=== PATIENT | female | born 1970 | race Two or more races ===

== ENCOUNTER 2020-08-27 13:29 | Outpatient (REF) | payer OTHER, SELFPAY ==
--- NOTE | ~2020-08-27 | XR_ITS ---
EXAMINATION: XR SHOULDER, RIGHT CLINICAL INFORMATION: Pain in right shoulder COMPARISON: None TECHNIQUE: AP external rotation, Grashey, scapular Y, and axillary views of the right shoulder. FINDINGS: There is mild acromioclavicular osteoarthritis. Glenohumeral joint is well preserved. No fracture. Alignment is anatomic. There is a calcification adjacent the greater tuberosity on the external rotation view which may reflect calcific tendinitis.. XR/XR shoulder RT min 2V IMPRESSION: Possible focus of calcific tendinitis of the rotator cuff adjacent the greater tuberosity of the humerus on the AP external rotation view. Mild right acromioclavicular joint arthrosis
--- NOTE | ~2020-08-27 | XR_ITS ---
EXAMINATION: XR SHOULDER, LEFT CLINICAL INFORMATION: Left shoulder pain COMPARISON: Radiographs left shoulder 05/08/2013 TECHNIQUE: The left shoulder is imaged in 6 views. FINDINGS: There is no fracture, dislocation, destructive process. The acromioclavicular alignment is normal. There is no arthropathy. No visible rotator cuff calcifications. Small plate and screws are seen overlying lower cervical spine consistent with prior anterior cervical fusion. XR/XR shoulder LT min 2V IMPRESSION: Unremarkable left shoulder.
== END 2020-08-27 13:30 | disposition home or self-care (01) ==
LOC: HO.XRAY 13:29
PROVIDERS: PCP Internal Medicine; Visit Provider Internal Medicine
DX: M25.511 Pain in right shoulder (principal); M25.512 Pain in left shoulder
CPT/HCPCS: 73030

== ENCOUNTER 2020-09-08 14:21 | Emergency (ER) | payer OTHER, SELFPAY ==
[2020-09-08 14:33] VITALS: BP 137/84; PULSE 66; RESP 18; TEMP 36.3; O2SAT 100; BMI 26.4
== END 2020-09-08 19:20 | disposition left against medical advice (07) ==
PROVIDERS: Emergency Provider Emergency Medicine; PCP Internal Medicine
DX: R21 Rash and other nonspecific skin eruption (principal); Z86.16 Personal history of COVID-19
CPT/HCPCS: 99281; 99282

== ENCOUNTER → 2020-09-22 11:53 | Outpatient (BNVA) | payer OTHER, SELFPAY | PROVIDERS: Visit Provider Physician Assistant | DX: Z13.89 Encounter for screening for other disorder (principal) | CPT/HCPCS: Q3014 ==

== ENCOUNTER 2020-10-13 10:38 | Day surgery (SDC) | payer OTHER, SELFPAY ==
--- NOTE | 2020-10-09 14:40 | P.CONAN_ITS ---
Documented by User: Roxi Trujillo 10/09/20 14:41 HPI - Anesthesia Eval Consult details Narrative: 89yo F for Colonoscopy PMFSH Active Problems Active Problems: All Active Problems (Updated 09/22/20 @ 15:25 by Saundra Lim PA-C) Encounter for screening colonoscopy (Acute) Past Medical History Medical History Anxiety COVID-19 Depression Social History Social History Household Members: None Alcohol intake: never Smoking Status: Never smoker Use of substances other than those prescribed or required for medical reasons: No Advance Directives: No Advance Directives Information Provided: Yes Current occupational status: disabled Notable Limiteds Allergies Allergy/AdvReac Type Severity Reaction Status Date / Time No Known Allergies Allergy Unverified 03/20/20 18:37 [No Known Allergies*] Home Medications Medication Instructions Recorded Confirmed Last Taken Type citalopram 20 mg tablet 20 mg PO DAILY 09/22/20 09/22/20 Unknown History diclofenac sodium 75 mg 75 mg PO BID 09/22/20 09/22/20 Unknown History tablet,delayed release gabapentin 400 mg capsule 400 mg PO DAILY 09/22/20 09/22/20 Unknown History lorazepam 1 mg tablet 1 mg PO DAILY PRN 09/22/20 09/22/20 Unknown History methylprednisolone 4 mg tablet 4 mg PO DAILY 09/22/20 09/22/20 Unknown History mirtazapine 30 mg tablet 30 mg PO DAILY 09/22/20 09/22/20 Unknown History trazodone 50 mg tablet 50 mg PO BEDTIME PRN 09/22/20 09/22/20 Unknown History Exam Exam Date and Time: October 09, 2020 144 Assessment and Plan Assessment Anesthesia Assessment: Chart Reviewed Documented by User: Paola Zafar 10/13/20 12:03 PMFSH Past Medical History Medical History Anxiety COVID-19 Depression Social History Social History Household Members: None Alcohol intake: never Smoking Status: Never smoker Use of substances other than those prescribed or required for medical reasons: No Advance Directives: No Advance Directives Information Provided: Yes Current occupational status: disabled Meds Allergies Allergy/AdvReac Type Severity Reaction Status Date / Time No Known Allergies Allergy Unverified 03/20/20 18:37 [No Known Allergies*] Home Medications Medication Instructions Recorded Confirmed Last Taken Type citalopram 20 mg tablet 20 mg PO DAILY 09/22/20 09/22/20 Unknown History diclofenac sodium 75 mg 75 mg PO BID 09/22/20 09/22/20 Unknown History tablet,delayed release gabapentin 400 mg capsule 400 mg PO DAILY 09/22/20 09/22/20 Unknown History lorazepam 1 mg tablet 1 mg PO DAILY PRN 09/22/20 09/22/20 Unknown History methylprednisolone 4 mg tablet 4 mg PO DAILY 09/22/20 09/22/20 Unknown History mirtazapine 30 mg tablet 30 mg PO DAILY 09/22/20 09/22/20 Unknown History trazodone 50 mg tablet 50 mg PO BEDTIME PRN 09/22/20 09/22/20 Unknown History Exam Airway Mallampati Class: II TM Dist: >3cm Neck ROM: Full Loose/Missing/Broken Teeth: No Heart: RRR Lungs: CTA Assessment and Plan Assessment Anesthesia Assessment: Anesthesia Plan Discussed Final Anesthetic Review NPO: Yes ASA Class: II Final Preanesthetic Review: No Changes in Pt Med Stat, Consent Obtained/Reviewed and Anes Risks/Benef Reviewed Patient Risk: Low Procedure Risk: Low Anesthetic Plan Anesthetic Plan: MAC: Disposition: Standard PACU
[2020-10-13 11:42] VITALS: BMI 26.4
[2020-10-13 11:43] VITALS: BP 109/56; PULSE 60; RESP 16; TEMP 36.7; O2SAT 100
[2020-10-13] MEDS: Lactated Ringers 1,000 ML 100 ML IVCONT (11:48)
--- NOTE | 2020-10-13 11:52 | MHC.SHP ---
Pre-Procedural Eval Section B Chief Complaint: Screening Relevant Family History (Specify if Yes): No Relevant Social History: None Present Medications: see Short Stay Collaborative assessment Medical History: Significant History (Anxiety COVID-19 Depression) History of Previous Operations: No relevant previous surgery Allergies: Allergies Allergy/AdvReac Type Severity Reaction Status Date / Time No Known Allergies Allergy Unverified 03/20/20 18:37 [No Known Allergies*] Review of Systems Sugical H&P ROS: Negative: Constitution, Cardiovascular, Respiratory, Neurological, Psychiatric, Hem-Onc, Allergic/Immunologic, Gastrointestinal, Genitourinary, Musculoskeletal, Integumentary, Endocrine and Eyes/Ears/Nose/Throat Exam Surgical H&P Exam: Normal: HEENT, Normal: Heart, Normal: Lungs, Normal: Extremities, Normal: Abdomen, Normal: Skin and Normal: Neurological Plan Diagnosis/Plan: Unchanged I have reviewed the history and physical and performed a pertinent physical examination on my patient. No changes have occurred unless specified.
--- NOTE | 2020-10-13 12:29 | PM.OP ---
Brief Operative Note Date of Service: 10/13/20 Pre-op diagnosis: colon screening Post-op diagnosis: same Procedure: see op note Surgeon: John Webster MD Anesthesia: MAC Estimated blood loss (mL): 0 Condition: stable Disposition: PACU
--- NOTE | 2020-10-13 12:30 | W.PM.OPN ---
Operative Note Operative Note Date of Service: 10/13/20 Narrative: Operative Information Procedure Description: Colonoscopy COLONOSCOPY Instrument: Olympus variable stiffness pediatric scope 190L Colonoscopy Monitoring: Vital signs and clinical assessment, continuous EKG monitoring, Pulse oximetry, Carbon Dioxide monitoring and blood pressure monitoring were done throughout the procedure. Colon withdrawal time was 10 minutes. Procedure: The patient was placed in the left lateral decubitis position and pre-procedure medications were administered. After a digital rectal examination of the ano-rectum, the video colonoscope was inserted into the rectum and advanced through the colon to the cecum/TI. The colonoscope was slowly withdrawn in a retrograde panoramic fashion and the colon mucosa was carefully examined including a retroflexed view of the rectum. Findings and interventions are described below. Procedure Difficulty: moderate Findings: Terminal Ileum-normal Cecum:normal Ascending Colon: normal Transverse Colon -normal Descending Colon:normal Sigmoid Colon: normal Rectum: Retroflexion with small internal hemorrhoids, grade I Anorectum - normal Colon preparation: [place] Bowel Preparation Scale Right colon; 2 Transverse colon: 2 Left colon; 2 (0 = Unprepared colon segment with mucosa not seen due to solid stool that cannot be cleared. 1 = Portion of mucosa of the colon segment seen, but other areas of the colon segment not well seen due to staining, residual stool and/or opaque liquid. 2 = Minor amount of residual staining, small fragments of stool and/or opaque liquid, but mucosa of colon segment seen well. 3 = Entire mucosa of colon segment seen well with no residual staining, small fragments of stool or opaque liquid) Impression and Post Procedure Diagnosis: internal hemorrhoids Plan: High fiber diet leaflet Avoid straining at stool, epsom salts and sitz bath, anusol supps or cream prn Repeat Colonoscopy in 10 years or earlier if clinically indicated Above findings were reviewed with the patient and relevant handouts were provided if indicated.
[2020-10-13 12:34] VITALS: BP 85/45; PULSE 73; RESP 16; TEMP 36.2; O2SAT 97
[2020-10-13 12:46] VITALS: BP 100/57; PULSE 56; RESP 18; TEMP 36.1; O2SAT 99
== END 2020-10-13 13:20 | disposition home or self-care (01) ==
PROVIDERS: PCP Internal Medicine; Visit Provider Internal Medicine Gastroenterology
PROC: 0DJD8ZZ Inspection of Lower Intestinal Tract, Via Natural or Artificial Opening Endoscopic (ICD-10-PCS; CPT 45378; principal; 2020-10-13 12:00)
DX: Z12.11 Encounter for screening for malignant neoplasm of colon (principal); K64.0 First degree hemorrhoids
CPT/HCPCS: G0121

== ENCOUNTER → 2020-10-29 13:51 | Outpatient (BNVA) | payer OTHER, SELFPAY | PROVIDERS: PCP Internal Medicine; Visit Provider Orthopaedic Surgery | DX: M75.42 Impingement syndrome of left shoulder (principal) | CPT/HCPCS: 20610; 99202; J1040 ==

== ENCOUNTER 2020-10-30 14:20 | Outpatient (REF) | payer OTHER, SELFPAY ==
--- NOTE | ~2020-10-30 | MM_ITS ---
EXAMINATION: MM SCREENING DIGITAL BREAST TOMOSYNTHESIS, BILATERAL CLINICAL INFORMATION: Screening. Asymptomatic. Family history breast cancer, mother age 50. Excision dermal lesion inferior medial right breast 2019. The lifetime risk of breast cancer based on the Tyrer-Cuzick Model is 15%. COMPARISON: Mammography: 08/21/2019, 10/27/2018, 08/14/2018, 03/19/2016; targeted right breast ultrasound 10/27/2018 TECHNIQUE: Digital breast tomosynthesis is performed in both the craniocaudal and mediolateral oblique views along with computer-aided detection (CAD). Synthesized 2D images are generated from the tomosynthesis. Scar markers are positioned right breast at site of previous excision dermal lesion. FINDINGS: There are scattered areas of fibroglandular density (ACR BI-RADS breast composition Category b). There are no significant masses, abnormal calcifications, or other abnormalities. Parenchymal pattern is similar to prior studies. Dermal lesion is no longer present consistent with the history excision. Axillary nodes are stable. Skin contours are smooth. No significant changes. MM/MM tomosynthesis screening BI IMPRESSION: No mammographic evidence of malignancy. ASSESSMENT: BI-RADS 1: Negative RECOMMENDATION: Routine annual mammography screening. This patient's information was entered into a reminder system with a target due date for their next mammogram.
== END 2020-10-30 14:21 | disposition home or self-care (01) ==
LOC: HO.MAMMO 14:20
PROVIDERS: PCP Internal Medicine; Visit Provider Internal Medicine
DX: Z12.31 Encounter for screening mammogram for malignant neoplasm of breast (principal)
CPT/HCPCS: 77063; 77067

== ENCOUNTER → 2020-11-12 11:27 | Outpatient (BNVA) | payer OTHER, SELFPAY | PROVIDERS: Referring Provider Internal Medicine; Visit Provider Physician Assistant | DX: K64.9 Unspecified hemorrhoids (principal); K59.00 Constipation, unspecified | CPT/HCPCS: 99212 ==

== ENCOUNTER → 2020-11-20 10:42 | Outpatient (BNVA) | payer OTHER, SELFPAY | PROVIDERS: PCP Internal Medicine; Visit Provider Urology | DX: N39.3 Stress incontinence (female) (male) (principal) | CPT/HCPCS: 51798; 99212 ==

== ENCOUNTER 2020-12-03 12:05 | Outpatient (REF) | payer OTHER, SELFPAY ==
[2020-12-03 13:00] LABS: COVID-19 Test Negative (Negative); IDNOW Serial# 55D5AD1C
== END 2020-12-03 12:06 | disposition home or self-care (01) ==
LOC: HO.LAB 12:05
PROVIDERS: Visit Provider Internal Medicine
DX: Z20.822 Contact with and (suspected) exposure to COVID-19 (principal)
CPT/HCPCS: 36415; 87635; C9803

== ENCOUNTER 2020-12-04 12:38 | Outpatient (REF) | payer OTHER, SELFPAY ==
--- NOTE | 2020-12-04 | PFT_ITS ---
FLOWS: FEV1 of 81% of predicted at 2.03 L. FVC 72% of predicted at 2.22 L. FEV1 to FVC ratio of 0.91. No bronchodilator response. LUNG VOLUMES: Total lung capacity 83% of predicted at 3.84 L. Residual volume 94% of predicted at 1.56 L. Slow vital capacity 77% of predicted at 2.28 L. Expiratory reserve volume 55% of predicted at 0.50 L. Diffusion capacity is normal. IMPRESSION: No obstructive or restrictive ventilatory defect. No bronchodilator response. Normal pulmonary function test. Toñito Robbins MD AP/MODL / [id number]
== END 2020-12-04 12:39 | disposition home or self-care (01) ==
LOC: HO.RESP 12:38
PROVIDERS: PCP Internal Medicine; Visit Provider Internal Medicine
DX: R05 Cough (principal); R06.2 Wheezing
CPT/HCPCS: 94060; 94727; 94729

== ENCOUNTER 2021-03-18 16:20 | Emergency (ER) | payer OTHER, SELFPAY ==
--- NOTE | ~2021-03-18 | XR_ITS ---
EXAMINATION: XR CHEST CLINICAL INFORMATION: Chest pain COMPARISON: None TECHNIQUE: Frontal view of the chest was obtained. FINDINGS: No significant abnormality is noted involving the heart, lungs, mediastinum, bony thorax or soft tissues. XR/XR chest 1V IMPRESSION: Unremarkable examination.
--- NOTE | 2021-03-18 16:24 | ECG_ITS ---
Test Reason : CHEST PAIN Blood Pressure : / mmHG Vent. Rate : 069 BPM Atrial Rate : 069 BPM P-R Int : 150 ms QRS Dur : 090 ms QT Int : 396 ms P-R-T Axes : 050 012 018 degrees QTc Int : 424 ms Normal sinus rhythm Minimal voltage criteria for LVH, may be normal variant Borderline ECG When compared with ECG of 08-MAY-2013 16:33, No significant change was found Referred By: Generic ED Physician Electronically Signed By:CHRIS MCKEON
[2021-03-18 16:32] VITALS: BP 159/70; PULSE 75; RESP 18; TEMP 36.6; O2SAT 100; BMI 27.3
[2021-03-18 17:07] LABS: MANUAL DIFF FLAG NO
[2021-03-18 17:12] LABS: Basophils Absolute Auto 0.1 X10*3/uL (0.0-0.2); Basophils Percent Auto 0.7 % (0-2); Eosinophils Absolute Auto 0.5 X10*3/uL (0.0-0.4); Eosinophils Percent Auto 5.7 % (0-4); Hematocrit 35.5 % (37-47); Hemoglobin 12.8 g/dl (12.0-16.0); Imm Gran Abs Auto 0.02 X10*3/uL (0.00-0.03); Imm Gran Pct Auto 0.2 % (0.0-0.4); Lymphocytes Absolute Auto 1.7 X10*3/uL (1.2-4.9); Lymphocytes Percent Auto 18.5 % (20-40); Mean Corpuscular HGB Conc 36.1 g/dl (31.0-35.0); Mean Corpuscular Hemoglobin 29.3 pg (27.0-33.0); Mean Corpuscular Volume 81.2 fL (80-98); Monocytes Absolute Auto 0.5 X10*3/uL (0.1-1.2); Monocytes Percent Auto 5.4 % (2-11); Neutrophils Absolute Auto 6.4 X10*3/uL (2.0-8.3); Neutrophils Percent Auto 69.5 % (45-73); Platelet Count 265 X10*3/uL (160-400); Red Blood Count 4.37 X10*6/uL (4.20-5.50); Red Cell Distribution Width 13.4 % (11.0-16.0); White Blood Count 9.2 X10*3/uL (4.8-10.8)
[2021-03-18 17:28] LABS: Anion Gap 12 (12-20); Blood Urea Nitrogen 14 mg/dL (9-16); Calcium 9.9 mg/dL (8.4-10.2); Carbon Dioxide 26 mmol/L (22-29); Chloride 103 mmol/L (96-108); Creatinine Clr Calc Pharmacy 67.2; Estimated Glomerular Filt Rate > 60; Glucose Random 106 mg/dL (60-115); Potassium 3.8 mmol/L (3.3-5.1); Sodium 137 mmol/L (135-145)
[2021-03-18 17:30] LABS: Troponin-I High Sensitivity 11.4 ng/L (<3.5-17.0)
[2021-03-18 19:37] VITALS: BP 150/83; PULSE 73; RESP 16
--- NOTE | 2021-03-18 19:37 | PC.NURSE ---
at bedside for primary eval.
--- NOTE | 2021-03-18 19:43 | ED_ITS ---
HPI - Chest Pain General Chief Complaint: Chest Pain Stated Complaint: cHEST PAIN Time Seen by Provider: 03/18/21 19:43 History of Present Illness HPI narrative: Patient is a 50-year-old female presents today with having chest pain that is been ongoing for the last 4 days. It is burning in nature it goes from her throat down to her xiphoid process. Patient claims this pain is worse at night. Improved during the day not affected by movement. She has no history of diabetes, hypertension, mi, family history of [place]. No history of recreational drug use. No history of smoking. Patient pain has been fairly consistent. Have not tried any medication for this. Patient from home. Related Data Home Medications Medication Instructions Recorded Confirmed citalopram 20 mg tablet 20 mg PO DAILY 09/22/20 11/12/20 diclofenac sodium 75 mg 75 mg PO BID 09/22/20 11/12/20 tablet,delayed release gabapentin 400 mg capsule 400 mg PO DAILY 09/22/20 11/12/20 lorazepam 1 mg tablet 1 mg PO DAILY PRN 09/22/20 11/12/20 mirtazapine 30 mg tablet 30 mg PO DAILY 09/22/20 11/12/20 trazodone 50 mg tablet 50 mg PO BEDTIME PRN 09/22/20 11/12/20 cholecalciferol (vitamin D3) 25 25 mcg PO DAILY 11/12/20 11/12/20 mcg (1,000 unit) capsule hydrocortisone 2.5 % topical cream appl TOPICAL BID 11/12/20 11/12/20 levocetirizine 5 mg tablet 5 mg PO BEDTIME 11/12/20 11/12/20 magnesium 200 mg tablet 200 mg PO DAILY 11/12/20 11/12/20 oxymetazoline 0.05 % nasal spray 2 spray INTRANASAL TID 11/12/20 11/12/20 temazepam 30 mg capsule 30 mg PO BEDTIME PRN 11/12/20 11/12/20 Previous Rx's Medication Instructions Recorded hydrocortisone 2.5 % topical cream 1 appl NE BID PRN #30 g 11/12/20 with perineal applicator (Proctozone-HC) pantoprazole 20 mg tablet,delayed 20 mg PO DAILY #20 tab 03/18/21 release (Protonix) Allergies Allergy/AdvReac Type Severity Reaction Status Date / Time No Known Allergies Allergy Verified 03/18/21 16:31 [No Known Allergies*] Review of Systems Review of Systems: No fever no chills no cough no congestion or upper respiratory symptoms. No diaphoresis. All system reviewed otherwise negative Yes all other systems are reviewed and are negative [facility] Past Medical History Medical History (Updated 03/18/21 @ 19:50 by Yanci Resendez MD) Anxiety Constipated COVID-19 Depression Hemorrhoids CADENCE (stress urinary incontinence, female) Surgical History H/O cervical spine surgery History of bladder surgery Social History Social History Household Members: None Alcohol intake: never Advance Directives: No Advance Directives Information Provided: Yes Patient : No Current occupational status: disabled Physical Exam Vital Signs: Vital Signs: Last Vital Signs Temp 97.8 F 03/18/21 16:32 Pulse 73 03/18/21 19:37 Resp 16 03/18/21 19:37 BP 150/83 H 03/18/21 19:37 Pulse Ox 100 03/18/21 16:32 Body Mass Index 27.3 Appearance: Alert. Oriented X3. No acute distress. Eyes: Pupils equal, round and reactive to light. ENT: Pharynx normal. Neck: Normal inspection. Neck supple. No lymph nodes noted. No crepitus CVS: Normal heart rate and rhythm. Pulses normal. Normal S1 and S2 Respiratory: No respiratory distress. Breath sounds normal. No Wheezing. No rales Abdomen: Soft and nontender. No rigidity. No distention. good BS x4 Skin: Skin warm and dry. Normal skin color. Normal skin turgor. Extremities: No lower extremity edema. Neurovascular intact to all extremities. No Lacerations. No Rash Neuro: Oriented X 3. No motor deficit. No sensory deficit. Moving all extermities. No slurred speech MDM - Chest Pain MDM Narrative Medical decision making narrative: Patient's EKG showed a sinus pattern heart rate is 70 NE QRS QT within normal limits is no acute ST segment elevation noted. Patient well appearing no distress. Pain is mid chest not affected by motion. It is burning in nature question reflux. Patient's 1st set of troponin is negative patient has constant pain for last 4 days this is unlikely secondary ACS. Patient's EKG is unchanged. Patient's history not consistent. Heart score is less than 3. Will have patient follow-up on an outpatient basis. We will give Maalox. Will have patient get PPI. Close follow-up with Cardiology on an outpatient basis. In stable condition. Medical Records Data Attestation: I reviewed the patient's medical records. Lab Data Attestation: I reviewed the patient's lab results. Result diagrams: 03/18/21 16:51 03/18/21 16:51 Labs: Lab Results 03/18/21 03/18/21 03/18/21 Range/Units 16:51 16:51 16:51 WBC 9.2 (4.8-10.8) X10*3/uL RBC 4.37 (4.20-5.50) X10*6/uL Hgb 12.8 (12.0-16.0) g/dl Hct 35.5 L (37-47) % MCV 81.2 (80-98) fL MCH 29.3 (27.0-33.0) pg MCHC 36.1 H (31.0-35.0) g/dl RDW 13.4 (11.0-16.0) % Plt Count 265 (160-400) X10*3/uL MPV 11.0 (9.4-12.3) fL Immature Gran % (Auto) 0.2 (0.0-0.4) % Neut % (Auto) 69.5 (45-73) % Lymph % (Auto) 18.5 L (20-40) % [place] % (Auto) 5.4 (2-11) % Eos % (Auto) 5.7 H (0-4) % Baso % (Auto) 0.7 (0-2) % Lymph # (Auto) 1.7 (1.2-4.9) X10*3/uL [place] # (Auto) 0.5 (0.1-1.2) X10*3/uL Eos # (Auto) 0.5 H (0.0-0.4) X10*3/uL Baso # (Auto) 0.1 (0.0-0.2) X10*3/uL Abs Immat Gran (auto) 0.02 (0.00-0.03) X10*3/uL Absolute Neuts (auto) 6.4 (2.0-8.3) X10*3/uL Absolute Nucleated RBC 0.000 (0.0-0.012) X10*3/uL Nucleated RBC % (auto) 0.0 (0.0-0.2) /100WBC Sodium 137 (135-145) mmol/L Potassium 3.8 (3.3-5.1) mmol/L Chloride 103 (96-108) mmol/L Carbon Dioxide 26 (22-29) mmol/L Anion Gap 12 (12-20) BUN 14 (9-16) mg/dL Creatinine 0.87 (0.5-1.4) mg/dL Estim Creat Clear Calc 67.2 Estimated GFR > 60 Random Glucose 106 (60-115) mg/dL Calcium 9.9 (8.4-10.2) mg/dL Troponin I High Sens 11.4 (<3.5-17.0) ng/L Discharge Plan Discharge Clinical Impression: Chest pain Patient Disposition: Home, Self-Care Instructions: Chest Pain (ED) Prescriptions: New pantoprazole [Protonix] 20 mg tablet,delayed release (DR/EC) 20 mg PO DAILY Qty: 20 RF: 0 No Action trazodone 50 mg tablet 50 mg PO BEDTIME PRNRF: 0 gabapentin 400 mg capsule 400 mg PO DAILY RF: 0 citalopram 20 mg tablet 20 mg PO DAILY RF: 0 lorazepam 1 mg tablet 1 mg PO DAILY PRNRF: 0 diclofenac sodium 75 mg tablet,delayed release (DR/EC) 75 mg PO BID RF: 0 mirtazapine 30 mg tablet 30 mg PO DAILY RF: 0 cholecalciferol (vitamin D3) 25 mcg (1,000 unit) capsule 25 mcg PO DAILY RF: 0 temazepam 30 mg capsule 30 mg PO BEDTIME PRNRF: 0 oxymetazoline 0.05 % spray,non-aerosol 2 spray intranasal TID RF: 0 levocetirizine 5 mg tablet 5 mg PO BEDTIME RF: 0 hydrocortisone 2.5 % cream topical BID RF: 0 magnesium 200 mg tablet 200 mg PO DAILY RF: 0 hydrocortisone [Proctozone-HC] 2.5 % cream with perineal applicator 1 appl NE BID PRN (Reason: hemorrhoids) Qty: 30 RF: 3 Referrals: Ragini So MD [Primary Care Provider] - 2 days (Risk of heart attack still exists. Please closely follow-up with your doctor on an outpatient basis.) Print Language: [place]
[2021-03-18] MEDS: Magnesium Hydrox/Alum Hydrox 30 ML ORAL.SUSP PO (19:58)
--- NOTE | 2021-03-18 19:59 | PC.NURSE ---
Medicated per MAR.
== END 2021-03-18 20:03 | disposition home or self-care (01) ==
PROVIDERS: Emergency Provider Emergency Medicine Emergency Medical Services; PCP Internal Medicine
DX: R07.9 Chest pain, unspecified (principal); Z79.899 Other long term (current) drug therapy; Z86.16 Personal history of COVID-19
CPT/HCPCS: 36415; 71045; 80048; 84484; 85025; 93005; 99284

== ENCOUNTER → 2021-03-24 13:25 | Outpatient (BNVA) | payer OTHER, SELFPAY | PROVIDERS: PCP Internal Medicine; Referring Provider Internal Medicine; Visit Provider Physician Assistant | DX: R13.10 Dysphagia, unspecified (principal) | CPT/HCPCS: 99202 ==

== ENCOUNTER 2021-06-16 08:36 | Outpatient (REF) | payer OTHER, SELFPAY ==
--- NOTE | ~2021-06-16 | FL_ITS ---
EXAMINATION: FL BARIUM SWALLOW CLINICAL INFORMATION: Dysphagia COMPARISON: None TECHNIQUE: Barium swallow examination is performed using fluoroscopic evaluation in addition to multiple fluoroscopic spot views. The patient is imaged both upright and prone and using both thick and thin sulfate along with effervescent granules. Fluoroscopy time: 1.5 minutes DAP: 3.987 Gycm2 Images: 45 FINDINGS: Pharynx and cervical esophagus: Examination demonstrates normal motility without stricturing, diverticula, or obstruction. No significant pooling of contrast material in the valleculae or piriform sinuses. No cricopharyngeal abnormalities are noted. There is an ACDF plate and screw fixation construct from C4 through C6, though this did not produce significant mass effect upon the hypopharynx nor the cervical esophagus. No appreciable pharyngeal abnormalities on these images. Thoracic esophagus: Normal esophageal motility was observed during swallowing. There was no evidence of esophageal mass, ulceration, or stricture. No hiatal hernia was noted. There is no evidence of gastroesophageal reflux demonstrated on this exam, neither spontaneous nor with the patient performing a Valsalva maneuver. Barium pill was noted to pass through the esophagus and into the lumen of the stomach without delay. FL/FL barium swallow IMPRESSION: Normal barium swallow study. No significant gastroesophageal reflux was observed. No findings of esophagitis, stricture, or dysmotility
== END 2021-06-16 08:37 | disposition home or self-care (01) ==
LOC: HO.XRAY 08:36
PROVIDERS: Visit Provider Physician Assistant
DX: R13.10 Dysphagia, unspecified (principal)
CPT/HCPCS: 74220

== ENCOUNTER 2021-10-05 13:12 | Outpatient (REF) | payer OTHER, SELFPAY ==
--- NOTE | ~2021-10-05 | XR_ITS ---
EXAMINATION: XR FOOT, RIGHT XR FOOT, LEFT CLINICAL INFORMATION: Bilateral plantar surface foot pain. COMPARISON: Most recent left foot radiographs dated 01/28/2020. TECHNIQUE: AP, oblique, and lateral views of the right and left foot. FINDINGS: Right Foot: No acute fracture or dislocation. No joint space narrowing or marginal osteophytes. No osseous erosion. Small plantar calcaneal spur. Left Foot: No acute fracture or dislocation. No joint space narrowing or marginal osteophytes. No osseous erosion. Small plantar calcaneal spur, unchanged. XR/XR foot RT min 3V IMPRESSION: RIGHT FOOT: Small plantar calcaneal spur. LEFT FOOT: Small plantar calcaneal spur, unchanged.
--- NOTE | ~2021-10-05 | XR_ITS ---
EXAMINATION: XR FOOT, RIGHT XR FOOT, LEFT CLINICAL INFORMATION: Bilateral plantar surface foot pain. COMPARISON: Most recent left foot radiographs dated 01/28/2020. TECHNIQUE: AP, oblique, and lateral views of the right and left foot. FINDINGS: Right Foot: No acute fracture or dislocation. No joint space narrowing or marginal osteophytes. No osseous erosion. Small plantar calcaneal spur. Left Foot: No acute fracture or dislocation. No joint space narrowing or marginal osteophytes. No osseous erosion. Small plantar calcaneal spur, unchanged. XR/XR foot LT min 3V IMPRESSION: RIGHT FOOT: Small plantar calcaneal spur. LEFT FOOT: Small plantar calcaneal spur, unchanged.
== END 2021-10-05 13:13 | disposition home or self-care (01) ==
LOC: HO.XRAY 13:12
PROVIDERS: Absent Provider Internal Medicine; PCP Internal Medicine; Visit Provider Internal Medicine
DX: M72.2 Plantar fascial fibromatosis (principal)
CPT/HCPCS: 73630

== ENCOUNTER 2021-11-02 12:54 | Outpatient (REF) | payer OTHER, SELFPAY ==
--- NOTE | ~2021-11-02 | MM_ITS ---
EXAMINATION: MM SCREENING DIGITAL BREAST TOMOSYNTHESIS, BILATERAL CLINICAL INFORMATION: Screening. Asymptomatic. Family history breast cancer, mother. The lifetime risk of breast cancer based on the Tyrer-Cuzick Model is 16%. COMPARISON: Mammography: 10/30/2020, 08/21/2019, 10/27/2018, 08/14/2018 TECHNIQUE: Digital breast tomosynthesis is performed in both the craniocaudal and mediolateral oblique views along with computer-aided detection (CAD). Synthesized 2D images are generated from the tomosynthesis. FINDINGS: There are scattered areas of fibroglandular density (ACR BI-RADS breast composition Category b). There are no significant masses, abnormal calcifications, or other abnormalities. Parenchymal pattern is similar to prior studies. No significant changes. MM/MM tomosynthesis screening BI IMPRESSION: No mammographic evidence of malignancy. ASSESSMENT: BI-RADS 1: Negative RECOMMENDATION: Routine annual mammography screening. This patient's information was entered into a reminder system with a target due date for their next mammogram.
== END 2021-11-02 12:55 | disposition home or self-care (01) ==
LOC: HO.MAMMO 12:54
PROVIDERS: Visit Provider Internal Medicine
DX: Z12.31 Encounter for screening mammogram for malignant neoplasm of breast (principal)
CPT/HCPCS: 77063; 77067

== ENCOUNTER 2022-09-09 10:18 | Outpatient (REF) | payer OTHER, SELFPAY ==
--- NOTE | ~2022-09-09 | XR_ITS ---
EXAMINATION: XR FOOT, LEFT CLINICAL INFORMATION: Calcaneus spurring. COMPARISON: Radiograph of the left foot 02/04/2022. TECHNIQUE: AP, lateral, and oblique views of the left foot. FINDINGS: No acute fractures or subluxation. No significant joint space narrowing or marginal osteophytes. No erosions or chondrocalcinosis. Small plantar calcaneal spur, unchanged. XR/XR foot LT min 3V IMPRESSION: 1. No acute fractures or subluxation. 2. Small plantar calcaneal spur, unchanged.
== END 2022-09-09 10:19 | disposition home or self-care (01) ==
LOC: HO.XRAY 10:18
PROVIDERS: PCP Internal Medicine; Visit Provider Registered Nurse
DX: M77.32 Calcaneal spur, left foot (principal)
CPT/HCPCS: 73630

== ENCOUNTER 2022-11-08 12:57 | Outpatient (REF) | payer OTHER, SELFPAY ==
--- NOTE | ~2022-11-08 | MM_ITS ---
EXAMINATION: MM SCREENING DIGITAL BREAST TOMOSYNTHESIS, BILATERAL CLINICAL INFORMATION: Screening. Asymptomatic. Family history breast cancer, mother, age 50. The lifetime risk of breast cancer based on the Tyrer-Cuzick Model is 12%. COMPARISON: Mammography: 11/02/2021, 10/30/2020, 08/21/2019 TECHNIQUE: Digital breast tomosynthesis is performed in both the craniocaudal and mediolateral oblique views along with computer-aided detection (CAD). Synthesized 2D images are generated from the tomosynthesis. FINDINGS: There are scattered areas of fibroglandular density (ACR BI-RADS breast composition Category b). There are no significant masses, abnormal calcifications, or other abnormalities. Parenchymal pattern is similar to prior studies. There is no developing density or architectural abnormality. The axilla and skin contours are unremarkable. No significant changes. MM/MM tomosynthesis screening BI IMPRESSION: No mammographic evidence of malignancy. ASSESSMENT: BI-RADS 1: Negative RECOMMENDATION: Routine annual mammography screening. This patient's information was entered into a reminder system with a target due date for their next mammogram.
== END 2022-11-08 12:58 | disposition home or self-care (01) ==
LOC: HO.MAMMO 12:57
PROVIDERS: PCP Internal Medicine; Visit Provider Internal Medicine
DX: Z12.31 Encounter for screening mammogram for malignant neoplasm of breast (principal)
CPT/HCPCS: 77063; 77067

== ENCOUNTER 2022-11-26 15:27 | Outpatient (REF) | payer OTHER, SELFPAY ==
--- NOTE | ~2022-11-26 | XR_ITS ---
EXAMINATION: XR WRIST, LEFT CLINICAL INFORMATION: Pain for one month. No history of injury. COMPARISON: None available. TECHNIQUE: PA, lateral, and oblique views of the left wrist. Images of the left hand also included. FINDINGS: There is periarticular osteopenia. Bone alignment is normal. No fracture or dislocation. Joint spaces are otherwise normal. Soft tissues are normal. XR/XR wrist LT min 3V IMPRESSION: Periarticular osteopenia. Otherwise unremarkable exam.
== END 2022-11-26 15:28 | disposition home or self-care (01) ==
LOC: HO.HHCX 15:27
PROVIDERS: Visit Provider Internal Medicine
DX: M25.532 Pain in left wrist (principal)
CPT/HCPCS: 73110

== ENCOUNTER → 2023-01-07 15:09 | Outpatient (BNVA) | payer OTHER, SELFPAY | PROVIDERS: PCP Internal Medicine; Visit Provider Orthopaedic Surgery | DX: M25.531 Pain in right wrist (principal) | CPT/HCPCS: 99202 ==

== ENCOUNTER 2023-02-01 11:15 | Outpatient (AMB) | payer OTHER, SELFPAY ==
--- NOTE | 2023-02-01 11:25 | A.OFFVIS_ITS ---
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 Patient stated her symptoms started about 6 months ago, she also mentioned she has neuropathy. Patient had previous spinal surgery ( cervical 2010, 2014) and suffers from low back pain due to herniated discs. 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 Complaints include pain over varicosities, swelling of lower extremities, cramping, fatigue, and heaviness of the lower extremities. It has been affecting there daily activities including walking. It is noted more so in right leg. Patient denies any previous venous surgery or injections. Patient denies any history of DVT/ PE. Patient denies any history of phlebitis. Trial of compression includes - [id number] They now present for vascular evaluation regarding their varicose veins. 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 Review of Systems Const Reports as per HPI ENT Reports no additional complaints Card Denies chest pain, Denies chest pain at rest and Denies chest pain with activity Resp Denies chest congestion and Denies cough GI Reports no additional complaints Musc Details: pain over varicosities, aching of lower extremities, swelling, cramping, heaviness and tiredness, itching Denies abnormal gait Skin/Breast Reports pruritus and Denies wounds Neuro Reports no additional complaints and Denies abnormal gait Psych Denies no additional complaints Physical Exam Const General: cooperative, healthy appearing and comfortable Orientation/consciousness: oriented to person, oriented to place and oriented to time Neck Carotids: no bruits Chest Chest palpation & inspection: normal inspection of the chest and normal palpation of entire chest wall Resp Effort & Inspection: normal respiratory effort and able to speak in complete sentences Cardio Rate: regular rate Heart sounds: S1 normal heart sound present and S2 normal heart sound present Peripheral pulses: Peripheral pulses 2+ throughout GI Inspection: Yes normal to inspection Skin Other: +2 edema, large rope-like varicosities greater than 4 mm CEAP Classification C4 - skin color changes Ep - Etiology Primary As - superficial veins P - reflux General skin exam: dry skin Neuro General: oriented to person, oriented to place and oriented to time Extrem Right lower extremity: full ROM, normal capillary refill and edema Left lower extremity: full ROM, normal capillary refill and edema Psych Mental Status: mental status grossly normal Assessment & Plan Assessment & Plan (1) Varicose veins of right lower extremity with inflammation: Code(s): I83.11 - Varicose veins of right lower extremity with inflammation Plan: In short, the patient has evidence of venous insufficiency. I have discussed the pathophysiology with the patient. In addition I have provided informational material regarding venous disease to the patient. We have discussed conservative measures including compression, elevation, and exercise. I have also provided a handout regarding appropriate use of compression stockings and where to purchase good compression stockings as well. I have taken the liberty of ordering venous insufficiency testing with the patient. They will follow up with me after testing. The patient had an opportunity to ask questions regarding the treatment plan. All questions were answered. Imaging studies, laboratory studies and physical exam results were discussed and reviewed in detail. No major barriers to understanding were identified. The patient expressed understanding and agreement with the above treatment plan. The patient is aware they should contact our office by phone for worsening of the current condition or the appearance of new symptoms. Thank you for allowing me to participate in the vascular care of this patient. If you have any questions or concerns regarding the treatment for the above condition please do not hesitate to contact me. The office telephone contact is [phone]. This note is constructed using voice recognition software. While every effort has been made to ensure accuracy, game technician errors may have been included. Thank you for allowing me to participate in the care of your patient. Yours sincerely, Juan Talavera MD, FACS, R.P.V.I. Orders: Orders US venous duplex LE BI 1 Week I83.11 - Varicose veins of right lower extremity with inflammation Coding Level of Care Code New Pt Level 4 (66776) Diagnoses Varicose veins of right lower extremity with inflammation I83.11
== END 2023-02-01 11:45 | disposition home or self-care (01) ==
PROVIDERS: Visit Provider Surgery Vascular Surgery
DX: I83.11 Varicose veins of right lower extremity with inflammation (principal)
CPT/HCPCS: 99203

== ENCOUNTER → 2023-02-01 11:15 | Outpatient (BNVA) | payer OTHER, SELFPAY | PROVIDERS: Visit Provider Surgery Vascular Surgery ==

== ENCOUNTER 2023-02-17 12:52 | Outpatient (REF) | payer OTHER, SELFPAY ==
--- NOTE | 2023-02-17 | EMG_ITS ---
Please see EMG / Nerve Conduction Report. MTDD
--- NOTE | ~2023-02-17 | US_ITS ---
EXAMINATION: US LOWER EXTREMITY VENOUS (REFLUX EXAM), BILATERAL CLINICAL INDICATION: Varicose veins right lower extremity COMPARISON: None. TECHNIQUE: Color flow triplex imaging and compression Doppler was performed to evaluate both the deep and the superficial systems bilaterally. To evaluate the superficial system, the examination was performed in the upright position. Color-flow Doppler ultrasound and compression ultrasound were utilized. In addition, maneuvers were utilized to demonstrate reflux. FINDINGS: RIGHT: 1. DEEP VENOUS ULTRASOUND OF THE RIGHT LOWER EXTREMITY: Common Femoral Vein: Compressible, normal respiratory variation and augmented flow. Popliteal Vein: Compressible, normal augmentation. Deep Venous Reflux: There is no evidence of reflux in the deep system in either the common femoral vein or the popliteal vein. There is no evidence of a Ugarte's cyst. 2. SUPERFICIAL ULTRASOUND WITH DOPPLER OF RIGHT LOWER EXTREMITY: RIGHT GREAT SAPHENOUS VEIN: Saphenofemoral Junction: 3 mm. No reflux. Proximal Thigh: 3 mm. No reflux. Mid Thigh: 2 mm. No reflux. Above Knee: 2 mm. 3212 ms reflux. Below Knee: Not seen Mid Calf: Not seen Ankle: 0.8 mm. No reflux. DUPLICATED GREAT SAPHENOUS VEIN: None RIGHT SMALL SAPHENOUS VEIN: Proximal: 3 mm. No reflux. Distal: 2 mm. No reflux. PERFORATORS: None LEFT: 1. DEEP VENOUS ULTRASOUND OF THE LEFT LOWER EXTREMITY: Common Femoral Vein: Compressible, normal respiratory variation and augmented flow. Popliteal Vein: Compressible, normal augmentation. Deep Venous Reflux: There is no evidence of reflux in the deep system in either the common femoral vein or the popliteal vein. There is no evidence of a Ugarte's cyst. 2. SUPERFICIAL ULTRASOUND WITH DOPPLER OF LEFT LOWER EXTREMITY: LEFT GREAT SAPHENOUS VEIN: Saphenofemoral Junction: 4 mm. No reflux. Proximal Thigh: 4 mm. No reflux. Mid Thigh: 1 mm. No reflux. Above Knee: 1 mm. No reflux. Below Knee: 1.2 mm. No reflux. Mid Calf: 1.2 mm. No reflux. Ankle: 2 mm. No reflux. DUPLICATED GREAT SAPHENOUS VEIN: None LEFT SMALL SAPHENOUS VEIN: Proximal: 4 mm. No reflux. Distal: 2 mm. 464 ms reflux. PERFORATORS: None US/US venous duplex LE BI IMPRESSION: 1. No varicose veins visualized. 2. Focal short segment prolonged reflux within the above-knee right great saphenous vein. 3. No evidence of deep vein thrombosis bilaterally. Abnormal lower extremity venous reflux times: Superficial and deep calf veins: >500 ms Femoropopliteal veins: >1000 ms Perforating veins: >350 ms Juaquin N, Loco J, Dianna L, Cristino AK, Thanh SS, Claudio Perez M, Torito WH. Definition of venous reflux in lower-extremity veins.J Vasc Surg. 2003; 38:[phone].
--- NOTE | 2023-02-17 13:09 | HO.EMG-NCS ---
Physiatry - EMG/NCS EMG/NCS Chief complaint: Bilateral hand numbness History of carpal tunnel surgery 2008, 2010 History of cervical spine fusion surgery Reason for referral: Evaluate for Carpal Tunnel Syndrome Referred by: Dr. Frank Procedure done: Bilateral upper extremities NCS/EMG Precautions and/or limitations: Past Carpal Tunnel Syndrome surgeries The limb temperature was monitored continuously and remained between 32-36 degrees C during the performance of the NCS. Nerve Conduction Studies Anti Sensory Summary Table ?Stim Site NR Onset (ms) Norm Onset (ms) Peak (ms) Norm Peak (ms) O-P Amp (?V) Norm O-P Amp Site1 Site2 Delta-0 (ms) Dist (cm) Jae (m/s) Norm Jae (m/s) Left Median Anti Sensory (2nd Digit) Wrist ? 3.8 4.9 <3.6 29.0 >10 Wrist 2nd Digit 3.8 14.0 37 Right Median Anti Sensory (2nd Digit) Wrist ? 3.2 4.0 <3.6 33.9 >10 Wrist 2nd Digit 3.2 14.0 44 Right Radial Anti Sensory (Thumb) Forearm ? 1.7 2.3 <3.1 32.6 Forearm Thumb 1.7 0.0 Left Ulnar Anti Sensory (5th Digit) Wrist ? 3.1 3.7 <3.7 36.3 >15.0 Wrist 5th Digit 3.1 14.0 45 Right Ulnar Anti Sensory (5th Digit) Wrist ? 2.8 3.7 <3.7 25.7 >15.0 Wrist 5th Digit 2.8 14.0 50 Motor Summary Table ?Stim Site NR Onset (ms) Norm Onset (ms) O-P Amp (mV) Norm O-P Amp iAmp (mV) Amp (1st) (%) Site1 Site2 Delta-0 (ms) Dist (cm) Jae (m/s) Norm Jae (m/s) Left Median Motor (Abd Poll Brev) Wrist ? 4.8 <3.9 7.2 >4.5 11.1 100.0 Elbow Wrist 3.0 20.0 67 >45 Elbow ? 7.8 7.9 11.6 109.7 Right Median Motor (Abd Poll Brev) Wrist ? 4.1 <3.9 7.9 >4.5 9.4 100.0 Elbow Wrist 3.4 19.0 56 >45 Elbow ? 7.5 9.1 11.8 115.2 Left Ulnar Motor (Abd Dig Minimi) Wrist ? 2.9 <3.0 9.2 >5 10.4 100.0 B Elbow Wrist 3.7 18.5 50 >45 B Elbow ? 6.6 7.0 7.6 76.1 A Elbow B Elbow 1.3 10.0 77 >45 A Elbow ? 7.9 6.9 7.6 75.0 Right Ulnar Motor (Abd Dig Minimi) Wrist ? 2.9 <3.0 9.6 >5 9.6 100.0 B Elbow Wrist 2.9 18.0 62 >45 B Elbow ? 5.8 6.1 6.1 63.5 A Elbow B Elbow 1.5 10.0 67 >45 A Elbow ? 7.3 5.5 5.5 57.3 EMG ?Side Muscle Nerve Root Ins Act Fibs Psw Amp Dur Poly Recrt Int Pat Comment Right Abd Poll Brev Median C8-T1 Nml Nml Nml Nml Nml 0 Nml Complete Right 1stDorInt Ulnar C8-T1 Nml Nml Nml Nml Nml 0 Nml Complete Right FlexCarRad Median C6-7 Nml Nml Nml Nml Nml 0 Nml Complete Right Biceps Musculocut C5-6 Nml Nml Nml Nml Nml 0 Nml Complete Right Triceps Radial C6-7-8 Nml Nml Nml Nml Nml 0 Nml Complete Right Deltoid Axillary C5-6 Nml Nml Nml Nml Nml 0 Nml Complete Left 1stDorInt Ulnar C8-T1 Nml Nml Nml Nml Nml 0 Nml Complete Left FlexCarRad Median C6-7 Nml Nml Nml Nml Nml 0 Nml Complete Left Biceps Musculocut C5-6 Nml Nml Nml Nml Nml 0 Nml Complete Left Triceps Radial C6-7-8 Nml Nml Nml Nml Nml 0 Nml Complete Left Deltoid Axillary C5-6 Nml Nml Nml Nml Nml 0 Nml Complete Left Abd Poll Brev Median C8-T1 Incr 1+ 1+ Nml Nml 0 Nml Complete FINDINGS: Bilateral median motor nerves showed prolonged distal latency, normal amplitude and normal conduction velocity. Bilateral median sensory nerves showed prolonged peak latency. All other nerves tested were within normal. Concentric needle EMG was performed in selected muscles of the bilateral upper extremities. Study revealed Signs of electric abnormalities as shown in the table below. Left APB showed increased insertional activity, fibrillations and PSWs. IMPRESSION: 1. This is an abnormal study. 2. There is electrodiagnostic evidence for left severe and right moderate-severe median neuropathy at the wrists, consistent with Carpal Tunnel Syndrome. 3. There is no electrodiagnostic evidence for ulnar neuropathy, brachial plexopathy, or cervical radiculopathy. Thank you for your kind referral. Peyton Boo MD, SHARON Board Certified, [place] Board [employer] and Rehabilitation (ABPMR) Board Certified, [place] Board of Electrodiagnostic Medicine (ABEM)
== END 2023-02-17 12:53 | disposition home or self-care (01) ==
LOC: HO.US 12:52
PROVIDERS: PCP Internal Medicine; Visit Provider Orthopaedic Surgery
DX: I83.11 Varicose veins of right lower extremity with inflammation (principal); R20.0 Anesthesia of skin; R20.2 Paresthesia of skin
CPT/HCPCS: 93970; 95860; 95886; 95907; 95911

== ENCOUNTER → 2023-02-17 12:52 | Outpatient (BNV) | payer OTHER, SELFPAY | PROVIDERS: PCP Internal Medicine; Visit Provider Physical Medicine & Rehabilitation | DX: G56.12 Other lesions of median nerve, left upper limb (principal); G56.11 Other lesions of median nerve, right upper limb; G56.03 Carpal tunnel syndrome, bilateral upper limbs | CPT/HCPCS: 95886; 95911 ==

== ENCOUNTER 2023-03-02 14:30 | Outpatient (RCR) | payer OTHER, SELFPAY ==
--- NOTE | 2023-02-07 08:23 | MHC.OT.EP ---
[address] [phone] Occupational Therapy Plan of Care Patient Name: Allyssa Younger Date of Evaluation: 02/02/23 Diagnosis: PAIN IN LEFT WRIST Pain Location: L ULNAR WRIST; THROBBING 2-3/10 REST 6-7/10 IN AM 8-9/19 IN PM, WITH INCREASED USE PAIN INCREASING DURING THE DAY Pain Score: 2-9/10 Pain Scale Used: Numeric (0 - 10) Aggravating Factors: DAILY USE, DEVIATION OF WRIST, ROTATION OF WRIST Alleviating Factors: INCONSISTENTLY WEARING NIGHT ORTHOSIS, GABAPENTIN RELIEF WITH HEAT > ICE Assessment: MS ANSLEY YOUNGER P/W ULNAR SIDED PAIN IN HER DOMINANT LUE. STATES PAIN STARTED IN SEPTEMBER 2022. SHE ALSO REPORTS NUMBNESS AND TINGLING THROUGH HER LUE. SHE HAS A HISTORY OF B/L CTR AND C-SPINE SURGERY. AN EMG HAS BEEN ORDERED. 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 A 77% LIMITATION IS REPORTED PER THE QUICK DASH ASSESSMENT. WILL CONT TO FOLLOW TO ADDRESS AREAS MENTIONED ABOVE AND IMPROVE QOL. Frequency and Duration: The patient will be seen 3X/WEEK FOR 4 WEEKS Short Term Goals: IND HEP IND EDEMA MANAGEMENT STRATEGIES TRIAL ALT SLEEPING POSITIONS TO REPORT MILD NUMBNESS AND TINGLING SYMPTOMS IND ORTHOSIS USE IND JT PROTECTION AND ACTIVITY MODIFICATIONS Retirement Goals: QUICK DASH <50% DEMO PROPER LIFT AND CARRY STRATEGIES OF 20 LB FOR CAREGIVING DUTIES REPORT <4/10 PAIN WITH LIGHT IADLs L GROSS GRASP >15 POUNDS Treatment Plan: Therapeutic Exercise Therapeutic Activity Home Exercise Program Splinting Neuro Re-ed Patient Education Desensitization/Sensory Re-ed Edema Control ADL Training Ultrasound NMES Iontophoresis Paraffin Fluidotherapy MHP Cold Packs Joint Mobilization Soft Tissue Mobilization Kinesiotaping Other (see comments) Electronically Signed By: ISAAC STUBBS OTR/L Please Sign and return to therapist. Thank you once again for your referrall.
--- NOTE | 2023-03-02 15:02 | MHC.OT.DC ---
[address] [phone] F: [phone] Occupational Therapy Discharge Note Patient Name: Allyssa Younger Provider: Nilsa Frank Diagnosis: PAIN IN LEFT WRIST Date of Evaluation: 02/02/23 Date of Discharge: 03/02/23 Treatments to Date: 8 Cancellations to Date: 0 No Shows to Date: 0 Discharge Status: Independent with HEP Recommend MD Follow-up Discharge Summary: MS ANSLEY YOUNGER WAS PLEASANT AND MOTIVATED DURING HER OT SESSIONS. SHE FOUND RELIEF WITH SPLINTING AND USE OF HEAT. SHE HAS POOR TOLERANCE TO COLD. Pt IS IND WITH HER HEP. SHE STATES NO IMPROVEMENTS IN HER PAIN OR PARASTHESIA. Pt WILL SEE MD NEXT WEEK TO DISCUSS EMG FINDINGS. NO FURTHER OT WARRANTED AT THIS TIME. D/C OT SERVICES, Pt TO CONTINUE HOME MAINTENANCE PROGRAM, ACTIVITY MODIFICATIONS AND SPLINTING RECOMMENDATIONS. Electronically Signed By: ISAAC STUBBS OTR/April Reviewed/agree with student documentation: N/A Therapist: Please Sign and return to therapist, thank you for your referral.
== END 2023-03-02 15:00 | disposition home or self-care (01) ==
LOC: HO.OT 14:30
PROVIDERS: PCP Internal Medicine; Visit Provider Orthopaedic Surgery
DX: M25.531 Pain in right wrist (principal)
CPT/HCPCS: 97033; 97035; 97110; 97167

== ENCOUNTER 2023-03-09 07:13 | Outpatient (REF) | payer OTHER, SELFPAY ==
--- NOTE | ~2023-03-09 | XR_ITS ---
EXAMINATION: XR WRIST, LEFT CLINICAL INFORMATION: Pain in left wrist COMPARISON: None available. TECHNIQUE: PA, lateral, and oblique views of the left wrist. FINDINGS: The bones and soft tissues are normal. No fracture. Alignment is anatomic with normal joint spaces. No erosions or abnormal soft tissue calcifications. XR/XR wrist LT min 3V IMPRESSION: Unremarkable left wrist.
== END 2023-03-09 07:14 | disposition home or self-care (01) ==
LOC: HO.HOSX 07:13
PROVIDERS: Visit Provider Orthopaedic Surgery
DX: M25.532 Pain in left wrist (principal); R20.0 Anesthesia of skin; G56.03 Carpal tunnel syndrome, bilateral upper limbs
CPT/HCPCS: 73110; 99212

== ENCOUNTER 2023-03-09 11:22 | Outpatient (AMB) | payer OTHER, SELFPAY ==
--- NOTE | 2023-03-09 11:58 | A.OFFVIS_ITS ---
Intake Intake Visit Reasons: ov- LT Wrist pain Intake Note: Allyssa 52 yr old female presents today to review EMG of bilateral hands. States she would like to have surgery for her left hand first. Consent reviewed and signed. Allergies No Known Allergies [No Known Allergies*] Allergy (Verified 03/09/23 11:59) HPI ov- LT Wrist pain HPI Details Allyssa is a 52 year old woman who presents for a NCS review of her bilateral hand numbness. She continues to complain of left ulnar-sided wrist pain radiating from the small finger up the ulnar aspect of the hand and wrist and up the dorsal ulnar forearm. Her symptoms began in 09/2022 and has not improved after completing OT hand therapy. She says she has pain with gripping & twisting activities, such as opening doors or doing her hair. She says she has numbness in her bilateral hands, in the median nerve distribution, L>R. She denies any small finger numbness She says her numbness improved in the past after her carpal tunnel release and C-spine surgery. She wears wrist braces at night to help with her numbness. Hx of B/L CTR in 1998 and 2001 and cervical sx from 2010 & 2014. 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 Review of Systems Const All systems reviewed & are unremarkable except as noted in HPI and below Physical Exam Const General: cooperative, healthy appearing and no acute distress Orientation/consciousness: oriented to person and oriented to place HEENT Head: Yes normocephalic and Yes atraumatic Eyes EOM: EOMs intact bilaterally Resp Effort & Inspection: normal respiratory effort and able to speak in complete sentences Cardio Jugular venous distension: no JVD Skin General skin exam: turgor normal Rashes: no rashes Neuro General: oriented to person and oriented to place Extrem Other: Evaluation of Upper Extremity: The patient is alert, oriented, and in no acute distress Neuro: Median, Ulnar, Radial nerves motor and sensory intact and sensation is normal to the tips of all digits No thenar or intrinsic wasting Good APB muscle belly firing and good finger cross Vascular: Cap refill brisk ROM: She can make a fist and extend all her digits She now localizes her pain more to ulnar aspect of wrist, both dorsally and ulnarly Nerve Conduction Study: IMPRESSION: 1. This is an abnormal study. 2. There is electrodiagnostic evidence for left severe and right moderate-severe median neuropathy at the wrists, consistent with Carpal Tunnel Syndrome. 3. There is no electrodiagnostic evidence for ulnar neuropathy, brachial pl exopathy, or cervical radiculopathy. Peyton Boo MD, SHARON 02/17/23 Psych Appearance: grossly normal Affect: normal affect Attitude: cooperative Assessment & Plan Assessment & Plan (1) Left wrist pain: Code(s): M25.532 - Pain in left wrist (2) Carpal tunnel syndrome of left wrist: Code(s): G56.02 - Carpal tunnel syndrome, left upper limb (3) Carpal tunnel syndrome of right wrist: Code(s): G56.01 - Carpal tunnel syndrome, right upper limb Plan Assessment and plan: 1. Left Carpal tunnel syndrome, severe, recurrence S/P release With dense numbness DOS: 1998 or 2001, unclear which I educated her about this condition I discussed operative and non-operative treatment options The patient would like to proceed with surgery The risks and benefits of operative treatment were discussed with the patient and the patient wishes to proceed with surgery. These risks include, but are not limited to risk of damage to blood vessels, nerves, tendons, infection, recurrence, incomplete relief of preoperative symptoms, persistent pain, possible need for further surgery and the risks associated with regional blocks and anesthesia. The plan is to take the patient to the operating room sometime in the next few weeks for the following procedures: 1. Left repeat carpal tunnel release, under local All of the preoperative paperwork including the consent was filled out today. All the patient's questions were answered. The patient understands that they will be contacted by our director hematology soon to schedule this procedure She denies Diabetes, blood thinners, asthma, heart, lung, kidney issues 2. Right Carpal tunnel syndrome, moderate-severe, recurrence S/P release Symptoms intermittent, but daily, worse at night DOS: 1998 or 2001, unclear which 3. Left ulnar sided wrist pain, Localized to the ulnar aspect of wrist, both dorsally and ulnarly Please note, previous note from 01/07/23 incorrectly identified her problem as Right wrist pain, when it should be left. Exam was not very focal at last visit. Symptoms since 09/2022 Negative radiographs I educated her about this condition She completed a course of OT hand therapy without improvement in her pain I think the next appropriate step may be an MRI to assess her left wrist given her negative radiographs However the more pressing concern is her severe carpal tunnel syndrome We will discuss an MRI at a future appointment when her carpal tunnel syndrome has been treated Scribed for Nilsa Farnk MD by Joe Lemus, medical policy specialist, on 03/09/23 at 12:10 PM, EST. Orders: Orders XR wrist LT min 3V Today M25.532 - Pain in left wrist Coding Level of Care Code Est Pt Level 4 (31249) Diagnoses Left wrist pain M25.532 Carpal tunnel syndrome of left wrist G56.02 Carpal tunnel syndrome of right wrist G56.01
== END 2023-03-09 12:19 | disposition home or self-care (01) ==
PROVIDERS: PCP Internal Medicine; Visit Provider Orthopaedic Surgery
DX: M25.532 Pain in left wrist (principal); G56.02 Carpal tunnel syndrome, left upper limb; G56.01 Carpal tunnel syndrome, right upper limb
CPT/HCPCS: 99214

== ENCOUNTER 2023-03-15 13:01 | Outpatient (AMB) | payer OTHER, SELFPAY ==
[2023-03-15 13:03] VITALS: BMI 28.3
--- NOTE | 2023-03-15 13:03 | MHC.OFFVIS ---
Intake Vital Signs 03/15/23 13:03 Height 5 ft 1 in Weight 150 lb BMI 28.3 Intake Visit Reasons: follow up [facility] 02/17/23 Intake Note: follow up [facility] 02/17/23, Right LE is worse than Left, she has pain and burning. Manager Of Selection And Assessment Required: Yes Manager Of Selection And Assessment Language: [employer] Name: [id number] Information Interpreted: non-clinical & clinical Accompanied by: Self / Same As Patient Allergies No Known Allergies [No Known Allergies*] Allergy (Verified 03/15/23 13:09) HPI follow up [facility] 02/17/23 HPI Details Complex 63-year-old female presents for follow-up regarding pain of the lower extremities. She complains pain and swelling of the lower extremities. She does have a prior history of a right lower extremity venous ablation by Dr. Aldridge. She does report some complications postprocedure. In general she discusses more knee and hip in joint pain at the time of our visit. She has been on mellitus a cam which reportedly helps her. She notes that the swelling has decreased somewhat since she started that. She now presents to us for follow-up with venous insufficiency testing. 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 Review of Systems Const All systems reviewed & are unremarkable except as noted in HPI and below Reports no additional complaints ENT Reports Normal hearing present Card Denies chest pain, Denies chest pain at rest, Denies chest pain with activity and Denies pedal edema Resp Denies cough GI Denies abdominal pain Musc Denies abnormal gait, Denies muscle cramps and Denies radiating pain into limb Skin/Breast Denies skin ulcer and Denies wounds Neuro Reports Normal hearing present and Denies abnormal gait Psych Reports no additional complaints Physical Exam Vital Signs: BMI result Body Mass Index 28.3 Const General: cooperative, healthy appearing and comfortable Orientation/consciousness: oriented to person, oriented to place and oriented to time HEENT Head: Yes normal to inspection Neck Neck: Yes normal visual inspection Carotids: no bruits Chest Chest palpation & inspection: normal inspection of the chest Resp Effort & Inspection: normal respiratory effort and able to speak in complete sentences Auscultation: clear to auscultation bilaterally, no crackles, no rales, no rhonchi and no wheezes Cardio Rate: regular rate Rhythm: regular rhythm Heart sounds: S1 normal heart sound present and S2 normal heart sound present Bruits: no carotid bruits Peripheral pulses: Peripheral pulses 2+ throughout GI Inspection: Yes normal to inspection Skin Wounds: no wounds Hair: normal Neuro General: oriented to person, oriented to place and oriented to time Cranial nerves: Yes CN's II-XII intact bilaterally and Yes Normal hearing present Cognition (Neuro): normal cognition Motor exam (neuro): 5/5 motor strength present throughout Extrem Other: venous exam: +2 edema General: No clubbing, No cyanosis and No edema Psych Appearance: grossly normal Mental Status: mental status grossly normal Speech and movement: Normal speech and movement present Results Reviewed Results Reviewed: Brief summary of venous insufficiency testing is as follows: right great saphenous vein: negative right small saphenous vein: negative right accessory vein: none present left great saphenous vein: negative left small saphenous vein: negative left accessory vein: none present Please note there is no evidence of any venous aneurysms or significant tortuosity Assessment & Plan Assessment & Plan (1) Varicose veins of right lower extremity with inflammation: Code(s): I83.11 - Varicose veins of right lower extremity with inflammation Plan: In short patient is negative for any significant venous insufficiency. I do believe that the majority of her discomfort may be orthopedic in nature. She may benefit from use of diuretics to assist in the lower extremity swellings. We did discuss routine conservative measures including compression elevation and exercise. She will follow up with us on an as-needed basis. Thank you for allowing us to assist in her care. If there are any questions or concerns please do not hesitate to contact us. Coding Level of Care Code Est Pt Level 4 (46769) Diagnoses Varicose veins of right lower extremity with inflammation I83.11
== END 2023-03-15 13:41 | disposition home or self-care (01) ==
PROVIDERS: PCP Internal Medicine; Visit Provider Surgery Vascular Surgery
DX: I83.11 Varicose veins of right lower extremity with inflammation (principal)
CPT/HCPCS: 99213

== ENCOUNTER → 2023-03-15 13:01 | Outpatient (BNVA) | payer OTHER, SELFPAY | PROVIDERS: PCP Internal Medicine; Visit Provider Surgery Vascular Surgery | DX: I83.11 Varicose veins of right lower extremity with inflammation (principal) | CPT/HCPCS: 99212 ==

== ENCOUNTER 2023-03-28 14:00 | Outpatient (RCR) | payer OTHER, SELFPAY | END 2023-04-22 13:32 | disposition home or self-care (01) | LOC: HO.PT 14:00 | PROVIDERS: PCP Internal Medicine; Visit Provider Physical Medicine & Rehabilitation | DX: M51.27 Other intervertebral disc displacement, lumbosacral region (principal); M54.16 Radiculopathy, lumbar region; M48.062 Spinal stenosis, lumbar region with neurogenic claudication | CPT/HCPCS: 97110; 97140; 97161 ==

== ENCOUNTER 2023-04-27 16:58 | Emergency (ER) | payer OTHER, SELFPAY ==
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
[2023-04-27 17:06] VITALS: BP 178/84; PULSE 79; O2SAT 100
[2023-04-27 17:22] VITALS: BP 161/101; PULSE 77; RESP 16; TEMP 36.8; O2SAT 100
[2023-04-27 17:58] VITALS: BP 161/101; PULSE 77; RESP 16; TEMP 36.8; O2SAT 100; BMI 29.7
[2023-04-27 18:00] VITALS: BMI 32.6
[2023-04-27 20:00] VITALS: BP 133/72; PULSE 70; RESP 16; TEMP 36.3; O2SAT 97
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
[2023-04-27] MEDS: Acetaminophen 325 MG TABLET 650 MG PO (21:39)
== END 2023-04-28 00:30 | disposition home or self-care (01) ==
PROVIDERS: Emergency Provider Student in an Organized Health Care Education/Training Program; PCP Internal Medicine
DX: S13.4XXA Sprain of ligaments of cervical spine, initial encounter (principal); S00.93XA Contusion of unspecified part of head, initial encounter; S90.01XA Contusion of right ankle, initial encounter; V43.52XA Car driver injured in collision with other type car in traffic accident, initial encounter; Y93.89 Activity, other specified; Y92.414 Local residential or business street as the place of occurrence of the external cause; Y99.9 Unspecified external cause status
CPT/HCPCS: 70450; 71045; 72125; 73600; 99284

== ENCOUNTER 2023-06-29 13:57 | Outpatient (REF) | payer OTHER, SELFPAY | END 2023-06-29 13:58 | disposition home or self-care (01) | LOC: HO.XRAY 13:57 | PROVIDERS: Visit Provider Internal Medicine | DX: R07.81 Pleurodynia (principal); R05.9 Cough, unspecified; U07.1 COVID-19 | CPT/HCPCS: 71046 ==

== ENCOUNTER 2023-08-09 12:45 | Outpatient (REF) | payer OTHER, SELFPAY ==
--- NOTE | ~2023-08-09 | MM_ITS ---
EXAMINATION: MM DIAGNOSTIC DIGITAL BREAST TOMOSYNTHESIS, BILATERAL US BREAST LIMITED, RIGHT MAMMOGRAPHY: CLINICAL INFORMATION: 53 year female complaining of right breast pain and fullness lower outer quadrant. History of breast cancer in mother at age 50. Patient also due for bilateral screening. COMPARISON: Mammography: 11/08/2022, 11/02/2021, 10/30/2020, 08/21/2019 TECHNIQUE: Digital breast tomosynthesis is performed in both the craniocaudal and mediolateral oblique views along with computer-aided detection (CAD). Synthesized 2D images are generated from the tomosynthesis. In addition a full-field 3-D digital right exaggerated CC projection and right 90 degree ML projection were provided. FINDINGS: There are scattered areas of fibroglandular density (ACR BI-RADS breast composition Category b). There are no suspicious masses, suspicious grouped calcifications, or areas of architectural distortion in either breast. The parenchymal pattern is stable from prior exams. No mammographic abnormality in the right breast lower outer quadrant in the region of breast pain. No skin or axillary abnormalities. ULTRASOUND: CLINICAL INFORMATION: As above. COMPARISON: None contributory. TECHNIQUE: Targeted right sonographic evaluation was performed using a high frequency linear transducer. Attention was focused on the right breast lower outer quadrant in the region of breast pain. Selected archived documentation. FINDINGS: RIGHT BREAST: There is a mixture of fatty and fibroglandular tissue. No suspicious mass is seen. There is no pathologic acoustic shadowing. There was no cystic abnormality. No ultrasonographic correlate present in the right breast lower outer quadrant to explain right breast pain in this region. MM/MM tomosynthesis diagnostic BI IMPRESSION: No findings in either breast suspicious for malignancy. No mammographic or ultrasonographic correlate to explain right breast pain in the lower outer quadrant. Recommend clinical management. Otherwise, recommend returning to routine annual screening. OVERALL ASSESSMENT: Mammography: BI-RADS 1 - Negative Ultrasound: BI-RADS 1 - Negative RECOMMENDATION: 1. Patient should be managed based on the clinical impression. 2. Otherwise, routine annual screening mammography. Results were provided to the patient at time of visit by the technologist. This patient's information was entered into a reminder system with a target due date for their next mammogram.
== END 2023-08-09 12:46 | disposition home or self-care (01) ==
LOC: HO.MAMMO 12:45
PROVIDERS: PCP Internal Medicine; Visit Provider Nurse Practitioner Family
DX: N64.4 Mastodynia (principal); Z80.3 Family history of malignant neoplasm of breast
CPT/HCPCS: 76642; 77062; 77066

== ENCOUNTER → 2023-08-09 13:30 | Outpatient (BNV) | payer OTHER, SELFPAY | PROVIDERS: PCP Internal Medicine; Visit Provider Radiology Diagnostic Radiology | DX: N64.4 Mastodynia (principal) | CPT/HCPCS: 76642; 77066; G0279 ==

== ENCOUNTER 2024-01-19 12:17 | Outpatient (REF) | payer OTHER, SELFPAY ==
[2024-01-19 13:07] LABS: MANUAL DIFF FLAG NO
[2024-01-19 13:14] LABS: Basophils Absolute Auto 0.1 X10*3/uL (0.0-0.2); Basophils Percent Auto 0.8 % (0-2); Eosinophils Absolute Auto 0.3 X10*3/uL (0.0-0.4); Eosinophils Percent Auto 4.2 % (0-4); Hematocrit 36.6 % (37.0-47.0); Hemoglobin 13.1 g/dl (12.0-16.0); Imm Gran Abs Auto 0.02 X10*3/uL (0.00-0.03); Imm Gran Pct Auto 0.3 % (0.0-0.4); Lymphocytes Absolute Auto 2.2 X10*3/uL (1.2-4.9); Lymphocytes Percent Auto 28.7 % (20-40); Mean Corpuscular HGB Conc 35.8 g/dl (31.0-35.0); Mean Corpuscular Hemoglobin 28.8 pg (27.0-33.0); Mean Corpuscular Volume 80.4 fL (80.0-98.0); Mean Platelet Volume 11.2 fL (9.4-12.3); Monocytes Absolute Auto 0.5 X10*3/uL (0.1-1.2); Monocytes Percent Auto 6.4 % (2-11); Neutrophils Absolute Auto 4.5 x10*3/uL (2.0-8.3); Neutrophils Percent Auto 59.6 % (45-73); Platelet Count 269 X10*3/uL (160-400); Red Blood Count 4.55 X10*6/uL (4.20-5.50); Red Cell Distribution Width 13.6 % (11.0-16.0); White Blood Count 7.5 X10*3/uL (4.8-10.8)
[2024-01-19 13:17] LABS: Estimated Average Glucose 100 mg/dL; Hemoglobin A1c % 5.1 % (<6.0)
[2024-01-19 13:59] LABS: Alanine Aminotransferase 11 U/L (0-31); Albumin Level 4.5 g/dL (3.5-5.0); Alkaline Phosphatase 91 U/L (39-117); Anion Gap 14 (12-20); Aspartate Amino Transferase 17 U/L (5-31); Bilirubin Total 0.6 mg/dL (0.0-1.0); Blood Urea Nitrogen 10 mg/dL (9-16); Calcium 9.7 mg/dL (8.4-10.2); Carbon Dioxide 25 mmol/L (22-29); Chloride 103 mmol/L (96-108); Cholesterol 177 mg/dL (<200); Estimated Glomerular Filt Rate > 60; Glucose Random 94 mg/dL (60-115); HDL Cholesterol 54 mg/dL (>40); LDL Cholesterol Calculated 104 mg/dL (<100); Potassium 4.1 mmol/L (3.3-5.1); Sodium 138 mmol/L (135-145); Total Protein 7.6 g/dL (6.5-8.0); Triglycerides 95 mg/dL (<150)
[2024-01-19 14:03] LABS: Reflex LDLD? No
[2024-01-19 14:15] LABS: TSH reflex Free T4 1.82 uIU/mL (0.32-4.0)
[2024-01-19 14:16] LABS: HIV AB/AG Nonreactive (Nonreactive); HIV Num 1 0.05 S/CO (0.00-0.99)
[2024-01-19 16:02] LABS: Appearance Urine Clear; Color Urine Yellow; Glucose Urine UA Negative (Negative); Leukocyte Esterase Urine Trace (Negative); Nitrite Urine Negative (Negative); Specific Gravity - Urine 1.015 (1.005-1.025); UMIC TRIGGER UACC YES; Urine Blood Negative (Negative); Urine Ketones Negative (Negative); Urine Protein Negative (Neg-Trace)
[2024-01-19 16:07] LABS: Bacteria Urine None Seen (None Seen); Hyaline Casts Urine 0-2 /LPF (0-2); RBC Urine 0-2 /HPF (0-2); Squamous Epithelial Cell Urine 0-2 /HPF (0-2); WBC Urine 0-5 /HPF (0-5)
[2024-01-23 11:24] LABS: HCV Log PCR <1.18 NOT DETECTED Log IU/mL (NOT DETECTED); HepC Viral Load <15 NOT DETECTED IU/mL (NOT DETECTED)
== END 2024-01-19 12:18 | disposition home or self-care (01) ==
LOC: HO.HHCL 12:17
PROVIDERS: Visit Provider Internal Medicine
DX: Z00.00 Encounter for general adult medical examination without abnormal findings (principal); R39.9 Unspecified symptoms and signs involving the genitourinary system; Z13.1 Encounter for screening for diabetes mellitus
CPT/HCPCS: 36415; 80053; 80061; 81001; 83036; 84443; 85025; 87389; 87522

== ENCOUNTER 2024-02-01 12:51 | Outpatient (AMB) | payer OTHER, SELFPAY ==
[2024-02-01 12:59] VITALS: BMI 32.6
--- NOTE | 2024-02-01 12:59 | MHC.OFFVIS ---
Vital Signs 02/01/24 12:59 Height 5 ft 4 in Weight 190 lb BMI 32.6 Handedness Left Intake Visit Reasons: PreOp- Lt CTR Intake Note: Allyssa is a 53 year old left hand dominant female who presents today for a pre op appointment for her left CTR. Patient is having concerns about her right elbow, since its been causing her a lot of pain as well and it radiates up to her right shoulder. Biodiesel Division Manager Services: Biodiesel Division Manager Present (Sukhjinder ([id number])) Allergies No Known Allergies [No Known Allergies*] Allergy (Verified 03/15/23 13:09) HPI HPI PreOp- Lt CTR: Details: Patient is a 53-year-old female who presents for preop appointment for left carpal tunnel release. Patient reports that symptoms have been ongoing for at least 1 year, however she had to reschedule her previously scheduled surgery with Dr. Frank due to a scheduling conflict. At this time, the patient reports that she is still experiencing pain, numbness, tingling that is intermittent, but daily and worse at night in the left hand and wrist, and she is also beginning to experience carpal tunnel symptoms on the right side as well. Of note, the patient also complains of significant discomfort on over the medial epicondyle of the right elbow that causes her significant pain that radiates up to the shoulder. Patient has no other acute complaints or concerns at this time. 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 Normal sensation in the tips of all digits of the right hand today. No thenar or intrinsic wasting. Good APB muscle firing and good finger cross. Vascular: Capillary refill brisk. ROM: Patient can make a fist and extend all their digits. Skin: No lacerations or abrasions noted. General: No ecchymosis. No erythema or evidence of infection. Positive Tinel's test at the wrist on the left Right elbow exam Mild swelling of the right medial epicondyle noted as compared to the left Patient is very tender to palpation of the right medial epicondyle No tenderness to the lateral epicondyle or olecranon Range of motion at the elbow full and intact Positive reverse Cozen's test Assessment & Plan Assessment & Plan (1) Carpal tunnel syndrome of left wrist: Code(s): G56.02 - Carpal tunnel syndrome, left upper limb Category: Medical (2) Carpal tunnel syndrome of right wrist: Code(s): G56.01 - Carpal tunnel syndrome, right upper limb Category: Medical (3) Medial epicondylitis of right elbow: Code(s): M77.01 - Medial epicondylitis, right elbow Category: Medical Plan 1. Carpal tunnel syndrome, left Symptoms intermittent, but daily, worse at night I educated the patient about the condition. I discussed both operative and nonoperative treatment options. The patient would like to proceed with surgery. The risks and benefits of operative treatment were discussed with the patient and the patient wishes to proceed with surgery. These risks include, but are not limited to, risk of damage to blood vessels, nerves, tendons, infection, recurrence, incomplete relief of preoperative symptoms, persistent pain, possible need for further surgery, and the risks associated with regional blocks and/or anesthesia. Plan is to take the patient to the operating room at some point in the next few weeks for the following procedures: 1. Left carpal tunnel release under local anesthesia All of the preoperative paperwork including the consent was discussed today. All of the patient's questions were answered in the clinic today. The patient understands that they will be in contact with our heatset winder operator to discuss scheduling their procedure. Patient denies diabetes, blood thinners, asthma, heart issues, lung issues, kidney issues, or current smoking. 2. Medial epicondylitis of right elbow Patient is educated about this condition and the typical recovery course At this time, patient will be referred to physical therapy for treatment of medial epicondylitis Patient is informed that it can take weeks to months for physical therapy to effectively treat this condition Patient is amenable to this plan Patient will follow-up pSoraidar.n. with any acute concerns 3. Carpal tunnel syndrome, right Symptoms intermittent, but daily, worse at night Patient would like to proceed with surgery in the left side 1st, as she finds the left side more bothersome Patient would like to discuss treatment of the right side once she has recovered from left-sided surgery Patient will follow-up after left carpal tunnel release for discussion of treatment options for right side Coding Level of Care Code Est Pt Level 4 (88779) Diagnoses Carpal tunnel syndrome of left wrist G56.02 Carpal tunnel syndrome of right wrist G56.01 Medial epicondylitis of right elbow M77.01
== END 2024-02-01 14:26 | disposition home or self-care (01) ==
PROVIDERS: PCP Internal Medicine
DX: M77.01 Medial epicondylitis, right elbow (principal); G56.03 Carpal tunnel syndrome, bilateral upper limbs
CPT/HCPCS: 99213

== ENCOUNTER → 2024-02-01 12:51 | Outpatient (BNVA) | payer OTHER, SELFPAY | PROVIDERS: PCP Internal Medicine | DX: G56.03 Carpal tunnel syndrome, bilateral upper limbs (principal); M77.01 Medial epicondylitis, right elbow | CPT/HCPCS: 99212 ==

== ENCOUNTER 2024-03-26 14:00 | Outpatient (RCR) | payer OTHER, SELFPAY ==
--- NOTE | 2024-02-20 10:50 | MHC.OT.OEV ---
[address] [phone] F: [phone] Occupational Therapy Evaluation Patient Name: Allyssa Younger Diagnosis: (R)Medial epicondylitis Date of Onset: 01/17/24 Date of Surgery: Attending Provider: Damian Jiménez Prescribed Treatment: MD Follow Up Appointment: History of Current Condition: Patient is a 53 y/o Prydeinig speaking female with PMHx of depressing, anxiety who reports pain in (R)elbow. She stated her pain started about a month ago. She can not grab items and it feels like a burning pain. She denies any numbness/tingling. She does not work, she lives with her daughter and grandchildren and helps to look after them. She also completes the disabilities caregiver such as sweeping and mopping. She reported her PLOF as (I)ADLs/IADLs. 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 (I)ADLs/IADLs Living Situation, Family and/or Social Support: Lives with daughter and grandchildren Current Level of Function and Occupation Self Care, Employment, Leisure: mod(A)ADLs/IADLs Sleep: Takes medicine because of neck pain, wakes up through the night from elbow and neck Driving: Vision: Balance: Pain Assessment Pain Score: 9 Pain Scale Used: Numeric (0 - 10) Pain Location and Description: 9/10 pain in (R)medial of elbow Aggravating Factors: Alleviating Factors: Taking medication for pain Skin and Soft Tissue Assessment Skin and Soft Tissue: Swelling Comments: Nerve assessment Ulnar Nerve: Right Impaired Median Nerve: Radial Nerve: Comments: Sensory Assessment Temperature: Light Touch: Proprioception: Vibration: Comments: WFL Edema Assessment Upper Extremity: Right Impaired Lower Extremity: Comments: medial side of the (R)elbow Dexterity Assessment Dexterity: Right Impaired Comments: Functional Dexterity Test= impaired (R)1.12 seconds Special Tests Comments: (+)Tinel's sign (+)Medial epicondylitis AROM(PROM) Strength Cervical Cervical Flexion: Cervical Extension: Cervical Lateral Flexion: Cervical Rotation: Comments: Shoulder Flexion: Extension: Abduction: Internal Rotation: External Rotation: Comments: WFL Flexion: Extension: Abduction: Internal Rotation: External Rotation: Comments: 3+/5 Elbow Flexion: Extension: Pronation: Supination: Comments: WFL Flexion: Extension: Pronation: Supination: Comments: 3+/5 Wrist Flexion: 70 Extension: 40 Ulnar Deviation: 25 Radial Deviation: 30 Comments: Flexion: Extension: Ulnar Deviation: Radial Deviation: Comments: 3+/5 Thumb Thumb CMC Flexion: Thumb MCP Flexion: Thumb IP Flexion: Radial Abduction: Palmar Abduction: [place] (Kapandji 0-10): Comments: WFL Digits Index MCP: PIP: DIP: Long MCP: PIP: DIP: Ring MCP: PIP: DIP: Small MCP: PIP: DIP: Comments: WFL Gross Grasp: (B) 0lbs. Lateral Pinch: 0lbs. Two-Point Pinch: 0lbs. Three-Jaw Arik: 0lbs. Comments: Test limited due to pain Patient Education Primary Language: Granulator Required: Yes Current Knowledge: Teaching Method: Education Needs Identified on Evaluation: How did patient/family demonstrate learning? Barriers to Learning: Readiness for Learning: Who was educated? Comments: [facility] shipping clerk/admin: Camilla Plan of Care Assessment: Patient is a 53 y/o female with diagnosis of (R)medial epicondyle who presents with c/o pain. She reported her pain initially began approximately a month ago and it has gotten worse. She reports 9/10 pain with no numbness/tingling. Based on initial evaluation patient's current (R)wrist AROM is as follows: 40* extension, 70* flexion, 30* radial deviation, 25* ulna deviation. Provocative Testing reveals (+) for Tinel's sign and Medial epicondylitis Test. Patient was unable to achieve plate finisher strength (B'ly) due to pain. She achieved 1.12seconds on the Functional Dexterity test indicating impairment. It was observed she has edema present on the medial side of the elbow. Quick DASH= 70.5 indicating patient's perceived impairment of the UE during self care tasks. Due to the documented impairments it is recommended that patient receive skilled OT in order for patient to achieve her PLOF of (I). Thank you for your referral. STG Duration: 2 weeks Short Term Goals: Patient will report 7/10 pain Patient will increase (R)plate finisher strength to 5lbs. Patient will increase (R)wrist extension to 50* LTG Duration: 4 weeks Machine Setter Sheet Metal Goals: Patient will report 0/10 pain Patient will increase plate finisher strength to 10lbs. Patient will have (R)wrist AROM WFLs Patient will be (I) with HEP Patient will have decreased of Quick DASH score by 30% Frequency and Duration: The patient will be seen 2x a week for 4 weeks Treatment Plan: Therapeutic Exercise Therapeutic Activity Home Exercise Program Splinting Patient Education Edema Control ADL Training Ultrasound Iontophoresis Paraffin Fluidotherapy MHP Cold Packs Soft Tissue Mobilization Kinesiotaping Skilled OT eval and treat Electronically Signed By: STEPHANIE Donnelly/April,ZOEY Reviewed/agree with student documentation: Therapist: Please sign and return to therapist, Thank you for your referral.
--- NOTE | 2024-04-25 14:07 | MHC.OT.DC ---
[address] [phone] F: [phone] Occupational Therapy Discharge Note Patient Name: Allyssa Younger Provider: Damian Jiménez PA-C Diagnosis: (R)Medial epicondylitis Date of Surgery: Date of Evaluation: 02/17/24 Date of Discharge: 04/25/24 Treatments to Date: 9 Cancellations to Date: 4 No Shows to Date: 2 Discharge Status: Discharge Summary: Allyssa was referred to OT w/ right medial epicondylitis. She had been doing well w/ OT but missed last six scheduled appointments. She had been reporting decreased pain and I anticipate she is doing well w/ home program. Electronically Signed By: Seerne Ho OTR/April CHT Reviewed/agree with student documentation: N/A Therapist: Please Sign and return to therapist, thank you for your referral.
== END 2024-04-25 14:07 | disposition home or self-care (01) ==
LOC: HO.OT 14:00
PROVIDERS: PCP Internal Medicine
DX: M77.01 Medial epicondylitis, right elbow (principal)
CPT/HCPCS: 97035; 97110; 97140; 97166

== ENCOUNTER 2024-03-29 12:42 | Day surgery (SDC) | payer OTHER, SELFPAY ==
[2024-03-29 13:31] VITALS: BP 125/71; PULSE 76; RESP 18; TEMP 36.8; O2SAT 100
--- NOTE | 2024-03-29 13:54 | MHC.SHP ---
Pre-Procedural Eval Section A - 24 Hr Update-Section A only Date of Service: 03/29/24 The patient is an INPATIENT: No Changes since office visit: No Cold of Flu in the past 2 weeks, No New Medical Problems, No Changes in Medication and No Patient answered all questions The patient has been examined within 24 hours of the surgical procedure. The History & Physical has been completed within 30 days and I have reviewed it.: Yes Section B - Complete if H&P > 30 days Chief Complaint: Carpal tunnel syndrome, left upper limb Allergies: Allergies Allergy/AdvReac Type Severity Reaction Status Date / Time No Known Allergies Allergy Verified 03/15/23 13:09 [No Known Allergies*] Plan Diagnosis/Plan: Unchanged I have reviewed the history and physical and performed a pertinent physical examination on my patient. No changes have occurred unless specified. Time Spent With Patient Time: Total time managing care of this patient today ____ minutes.
--- NOTE | 2024-03-29 13:54 | W.PM.OPN ---
Operative Note Operative Note Date of Service: 03/29/24 Narrative: Preop diagnosis: 1. Left Carpal tunnel syndrome Postop diagnosis: same Procedure: 1. Left Carpal tunnel release Surgeon: Nilsa Frank MD Billing Adjudicator: Damian JOSEPH Anesthesia: local block using 1% lidocaine with epinephrine Findings: Thickened transverse carpal ligament. EBL: Less than 5 mL Specimens: None Complications: None Disposition: Brought to recovery room in stable condition Plan: Follow-up for 10-14 days for wound check and suture removal Indications: The patient is 53 years old, with left carpal tunnel syndrome that has been unresponsive to nonoperative management. The risks and benefits of operative treatment including but not limited to risk of damage to blood vessels, nerves, tendons, infection, persistent pain, persistent symptoms, or possible need for additional surgery were discussed with the patient and the patient wishes to proceed with surgery. Procedure: Once consent was obtained a local block was performed using a combination of 1% lidocaine with epinephrine. The patient was then brought back to the operating suite and placed on the operative table in supine position. The left upper extremity was prepped and draped in a standard surgical fashion. Once assured that we had a good block, a 2.0 cm longitudinal incision was made centered over the carpal tunnel. The incision was made through the skin to the subcutaneous tissues using a #15 blade. Dissection was made down to the level of the transverse carpal ligament with care being taken to protect the palmar cutaneous nerve. Once the transverse carpal ligament was clearly visualized, a longitudinal incision was made in the transverse carpal ligament 1st using a #15 blade, then using tenotomy scissors under direct visualization. Care was taken to look for and protect the motor branch of the median nerve when seen in this area. Once satisfied with our carpal tunnel release the wound was copiously irrigated with normal saline and hemostasis was obtained with a brief period of local pressure. The skin edges were reapproximated with some 5.0 nylon suture material and a sterile dressing was applied. The patient appears to have tolerated the procedure well and with no complications. All digits were well vascularized at the conclusion of the case.
[2024-03-29 15:20] VITALS: BP 135/82; PULSE 76; RESP 18; O2SAT 99
== END 2024-03-29 15:40 | disposition home or self-care (01) ==
PROVIDERS: PCP Internal Medicine; Visit Provider Orthopaedic Surgery
PROC: (CPT 64721; principal; 2024-03-29 14:50)
DX: G56.02 Carpal tunnel syndrome, left upper limb (principal)
CPT/HCPCS: 64721; J0171

== ENCOUNTER → 2024-03-29 12:42 | Outpatient (BNV) | payer OTHER, SELFPAY | PROVIDERS: PCP Internal Medicine; Visit Provider Orthopaedic Surgery | DX: G56.02 Carpal tunnel syndrome, left upper limb (principal) | CPT/HCPCS: 64721 ==

== ENCOUNTER 2024-04-11 13:35 | Outpatient (AMB) | payer OTHER, SELFPAY ==
--- NOTE | 2024-04-11 13:39 | A.OFFVIS_ITS ---
Vital Signs 04/11/24 13:46 Height 5 ft 1 in Weight 160 lb BMI 30.2 Handedness Left Intake Visit Reasons: PO LT CTR 03/29/24 AR Intake Note: Allyssa is a greek speaking 54 year old left hand dominant female who presents today post operatively S/P Left Carpal Tunnel Release w/ Dr Frank DOS: 03/29/2024. Patient reports her symptoms have improved, she hasn't experienced numbness or tingling. She is concerns with pain on the ulnar aspect of her left wrist. Toy Consultant Required: Yes Toy Consultant Language: Manager Diesel Name: [id number] Allergies No Known Allergies [No Known Allergies*] Allergy (Verified 04/11/24 13:45) HPI HPI PO LT CTR 03/29/24 AR: Details: Patient is a 54-year-old female who presents for postoperative evaluation status post left carpal tunnel release, DOS 03/29/2024. Today, patient reports that she is feeling well, and that her numbness and tingling in the left upper extremity has completely resolved since surgery. The patient does report that she has been experiencing discomfort on the ulnar aspect of the dorsal left wrist, but this was present prior to surgery. Patient reports no redness, swelling, or discharge from the incision site. Patient states that she is aware she has carpal tunnel syndrome on the right, it would like to hold off on surgery until after a trip she has planned later this year. No other acute complaints or concerns at this time. 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 Adequate APB muscle firing and good finger cross. Vascular: Capillary refill brisk. ROM: Patient can make a fist and extend all their digits. Patient does report discomfort with passive flexion and resisted extension on the ulnar aspect of the dorsal left wrist Skin: Well approximated and well healing incision site noted in the volar aspect of the left wrist General: No ecchymosis. No erythema or evidence of infection. Assessment & Plan Assessment & Plan (1) Carpal tunnel syndrome of right wrist: Code(s): G56.01 - Carpal tunnel syndrome, right upper limb Category: Medical (2) Carpal tunnel syndrome of left wrist: Code(s): G56.02 - Carpal tunnel syndrome, left upper limb Category: Medical (3) Extensor carpi ulnaris tendinitis: Code(s): M77.8 - Other enthesopathies, not elsewhere classified Category: Medical Plan 1. Left carpal tunnel syndrome status post carpal tunnel release DOS 03/29/2024 Patient appears to be recovering well postoperatively Patient is educated about the typical recovery course At this time, patient is informed that she will not require acute follow-up with us for her left carpal tunnel release, as she appears to be recovering well Patient is educated on the worrisome signs and symptoms of infection, and is told she should follow-up with us if she experiences these Patient was amenable to this plan 2. Right carpal tunnel syndrome Symptoms intermittent, but daily, worse at night Patient states she would like to hold off on any surgical intervention for her right carpal tunnel syndrome until her trip later this year has concluded Patient is educated that she should call our office when she returns from her trip to book a follow-up appointment to discuss surgical intervention for her right carpal tunnel syndrome Patient was amenable to this plan 3. Left ECU tendinitis At this time, patient was provided with a Velcro wrist splint to be worn with daytime activities Patient is also referred to occupational therapy for treatment of ECU tendinitis Patient is also educated on conservative pain management measures, such as rest, ice, elevation, and [id number] pain medication as needed Patient was amenable to this plan Patient will follow-up after her trip for discussion of right carpal tunnel release, sooner with any acute concerns Coding Level of Care Code Est Pt Level 3 (05763) Diagnoses Carpal tunnel syndrome of right wrist G56.01 Carpal tunnel syndrome of left wrist G56.02 Extensor carpi ulnaris tendinitis M77.8
[2024-04-11 13:46] VITALS: BMI 30.2
== END 2024-04-11 14:15 | disposition home or self-care (01) ==
PROVIDERS: PCP Internal Medicine
DX: M77.8 Other enthesopathies, not elsewhere classified (principal); G56.03 Carpal tunnel syndrome, bilateral upper limbs
CPT/HCPCS: 99213

== ENCOUNTER → 2024-04-11 13:35 | Outpatient (BNVA) | payer OTHER, SELFPAY | PROVIDERS: PCP Internal Medicine | DX: G56.02 Carpal tunnel syndrome, left upper limb (principal); M77.8 Other enthesopathies, not elsewhere classified; Z98.890 Other specified postprocedural states | CPT/HCPCS: 99212 ==

== ENCOUNTER 2024-10-08 13:16 | Outpatient (AMB) | payer OTHER, SELFPAY ==
--- NOTE | 2024-10-08 13:27 | MHC.OFFVIS ---
Vital Signs 10/08/24 13:32 Height 5 ft 1 in Weight 146 lb BMI 27.6 Intake Visit Reasons: New Pt - B/L knee pain Intake Note: Allyssa is a 54 year old female who presents today for a evaluation of her bilateral knee pain. Patient reports ongoing pain for about a year. She states that her pain is worse on the left knee than the right knee. She mentions that her pain feelings like a burning sensation on both medial and lateral aspect of the knees. Patient states that her pain is worse when she is going down the stair, kneeling and bending. She has tried and failed gabapentin and duloxetine. Acute Care Occupational Therapist Required: Yes Acute Care Occupational Therapist Language: Ad Copy Writer Services: Acute Care Occupational Therapist Present (Ada ([id number])) Allergies No Known Allergies [No Known Allergies*] Allergy (Verified 10/08/24 13:32) HPI HPI New Pt - B/L knee pain: Details: Patient presents the office today for evaluation of bilateral knee pain she reports the pain has been ongoing for the past year her left knee is worse than her right. She denies any injury or trauma. She expresses that there is a burning sensation in the front of the knee. Pain worsens with going up and down the stairs, bending squatting or kneeling. She has tried gabapentin without relief. Of note the patient does have a past surgical history for a left knee arthroscopy in 1994. 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 Tenderness to palpation along the medial and lateral patellar borders. Crepitus felt with range of motion. NVI. Office Procedures AMB Joint Injection/Aspiration Joint Injection/Aspiration Primary Site: right knee Secondary Site: left knee Prep: site was prepped using aseptic technique, ethochloride spray was applied and injection warnings given Injected: 80 mg of, DepoMedrol, with 8 mL of (2% plain lido ) and in the joint Approach Used: anterolateral Procedure: The patient tolerated the procedure well, but had some pain with the injection and there was some relief with the local anesthesia Coding - Bilateral Large Joint Procedure code (CPT) selection complete Assessment & Plan Assessment & Plan (1) Osteoarthritis of knees, bilateral: Code(s): M17.0 - Bilateral primary osteoarthritis of knee Category: Medical Plan While the office today, I discussed with cortisone injections. The patient was offered a cortisone injection in bilateral knees with 80 mg of DepoMedrol. The patient was explained the risks, benefits, and alternatives to receiving this injection. After receiving consent for the injection, the patient had the procedure done while in the office today. The patient tolerated the procedure well with no complications. An additional cortisone injections I have also given the patient a reaction knee brace off the shelf. We discussed the role physical therapy are the patient like to hold off at this time. Follow-up will be p.r.n., or sooner if needed X-rays of bilateral knees which were obtained while in the office today and were reviewed by me, Mari Pittman PA-C, revealed patellofemoral arthritis bilaterally. Orders: Orders XR knee LT 3V Today M25.569 - Pain in unspecified knee XR knee RT 3V Today M25.569 - Pain in unspecified knee Coding Level of Care Code New Pt Level 3 (71447) Diagnoses Osteoarthritis of knees, bilateral M17.0 CPT Codes Coding - - Bilateral Large Joint: 56437 - Bilateral Large Joint ([id number])
[2024-10-08 13:32] VITALS: BMI 27.6
--- OUTSIDE RECORDS SUMMARY | 2024-10-08 15:45 | XMS_ITS | Encounter Summary ---
Author Organization [employer] [facility] Address [address] [place] [address] 7[address] [place] [address] Care Team Providers Care Hotel Associate Name Role Phone Ragini So MD Primary Care Provide r Encounter Details Date Type Department Care Team (Late Contact Info) Description 07/07/2022 Abstract [facility] [address] [place] [address] Janak Chao DMD [address] [place] [address] Social History Tobacco Use Types Packs/Day Years Used Date Smoking Tobacco: Never Assessed Comments Unknown Sex and Gender Information Value Date Recorded Sex Assigned at Female 05/03/2022 10:34 AM EDT Legal Sex Female 10:34 AM EDT Gender Identity Female 05/03/2022 10:34 AM EDT Sexual Orientation Straight 05/03/2022 10 :34 AM EDT COVID-19 Exposure Response Date Recorded In the last 10 days, have yo u been in contact with someone who was confirmed or suspected to have Coronavirus/COVID-19? No / Unsure 06/14/2022 2:51 PM EST documented as of this encounter Plan of Treatment Upcoming Encounters Date Type Department Care Team (Late st Contact Info) Description 11/21/2024 11:30 AM EDT Telemedicine [facility] [address] [place] [address] Ragini So MD [address] [place] [address] documented as of this encounter Visit Diagnoses Not on filedocumented in this encounter Care Teams Hotel Associate Relationship Specialty Start Date End Date Ragini So MD [address] [place] [address] PCP - General Family Medicine 03/31/18 documented as of this encounter
--- OUTSIDE RECORDS SUMMARY | 2024-10-08 15:45 | XMS_ITS | Encounter Summary ---
Author Organization [employer] Address [address] [facility] [address]t [place] [address] Care Team Providers Care Appian Developer Name Role Phone Ragini So MD Primary Care Provide r Reason for Visit * Reason Onset Date Comments Medication Question 06/21/2024 Encounter Details Date Type Department Care Team ([facility] Contact Info) Description 06/21/2024 Telephone [facility] [address] [place], [place] [phone] Ragini So MD [address] [place], [place] [phone] Medication Question Social History Tobacco Use Types Packs/Day Years Used Date Smoking Tobacco: Never Passive Smoke Exposure: Never Smokeless Tobacco: Never Alcohol Use Standard Drinks/Week Comments Never 0 (1 standard drink = 0.6 oz pur e alcohol) Alcohol Answer Date Recorded Frequency of Alcohol Consumption Not on file 01/19/2024 Average Number of Drinks Not on file 024 Frequency of Binge Drinking Not on file 01/01 Score 0 01/19/2024 Depression Answer Date Recorded Patient Health Questionnaire-9 Score 6 01/19/2024 Patient Health Questionnaire-9 Score 6 01/19/2024 Last PHQ-9: Questionnaire Data Not on file 0 01/19/2024 Housing Stability Answer Date Recorded What is your housing situation today? I have tamra perez 01/12/[address] you li ve. Do you have problems with any of the following? None of the above 01/12/2024 Food Insecurity Answer Date Recorded Within the past 12 months, y ou worried that your food would run out before you got money to buy more: Never True 01/12/2024 Within the past 12 months,th e food you bought just didn't last and you didn't have enough money to get more: Never True 05/2024 Transportation Answer Date Recorded In the past 12 months, has l ack of transportation kept you from medical appts, meetings, work or from getting things needed for daily living? No 01/12/2024 Utilities Answer Date Recorded In the past 12 months, has t he electric, gas, oil or water company threatened to shut off services in your home? No 01/12/2024 Depression Answer Date Recorded Patient Health Questionnaire-2 Score 1 01/19/2024 Internet Access Answer Date Recorded Internet Access Q1 Yes 03/04/2024 Internet Access Q2 Not on file 03/04/2024 Comments Unknown Sex and Gender Information Value Date Recorded Sex Assigned at Female 05/03/2022 10:34 AM EDT Legal Sex Female 10:34 AM EDT Gender Identity Female 05/03/2022 10:34 AM EDT Sexual Orientation Straight 05/03/2022 10 :34 AM EDT documented as of this encounter Miscellaneous Notes * Telephone Encounter - Jojo Sanchez - 06/21/2024 3:23 PM EST Tc from pt requesting PA status for Qsymia. Med coverage was denied. Pt request a call back for another medication. Please contact: [phone] (Danish) documented in this encounter Plan of Treatment Upcoming Encounters Date Type Department Care Team (Late st Contact Info) Description 11/21/2024 11:30 AM EDT Telemedicine [facility] [address] [place] [address] Ragini So MD [address] [place], [place] [phone] documented as of this encounter Visit Diagnoses Not on filedocumented in this encounter Additional Health Concerns Assessment Noted Time PHQ-9 Depression Total Score: 6 01/19/20 24 10:44 AM EDT documented as of this encounter Care Teams Appian Developer Relationship Specialty Start Date End Date Ragini So MD [address] [place] [address] PCP - General Family Medicine 03/31/18 documented as of this encounter
--- OUTSIDE RECORDS SUMMARY | 2024-10-08 15:45 | XMS_ITS | Encounter Summary ---
Author Organization [employer] Address [address] [facility] 7t [place] [address] Care Team Providers Care Chha Name Role Phone Ragini So MD Primary Care Provide r Reason for Visit * Reason Comments Med Refill Encounter Details Date Type Department Care Team ([facility] st Contact Info) Description 04/03/2024 Refill [facility] [address] [place], [place] [phone] Ragini So MD [address] [place] [address] Social History Tobacco Use Types Packs/Day Years [...] AM EDT documented as of this encounter Plan of Treatment Upcoming Encounters Date Type Department Care Team (Late st Contact Info) Description 11/21/2024 11:30 AM EDT Telemedicine [facility] [address] [place], [place] [phone] Ragini So MD [address] [place] [address] documented as of this encounter Visit Diagnoses Not on filedocumented in this encounter Additional Health Concerns Assessment Noted Time PHQ-9 Depression Total Score: 6 01/19/20 24 10:44 AM EDT documented as of this encounter Care Teams Chha Relationship Specialty Start Date End Date Ragini So MD [address] [place], [place] [phone] PCP - General Family Medicine 03/31/18 documented as of this encounter
--- OUTSIDE RECORDS SUMMARY | 2024-10-08 15:45 | XMS_ITS | Encounter Summary ---
Author Organization [email or web address] [facility] Address [address] [place] [address] 7[address] [place] [address] Care Team Providers Care Ordnance Officer Name Role Phone Ragini So MD Primary Care Provide r Encounter Details Date Type Department Care Team (Latest Contact Info) Description 10/08/2021 Abstract [facility] CONVERSIONS Dental, Provider, DDS Social History Tobacco Use Types Packs/Day Years [...] Info) Description 11/21/2024 11:30 AM EDT Telemedicine [facility] MEDICINE [address] [place] [address] Ragini So MD [address] [place] [address] documented as of this encounter Visit Diagnoses Not on filedocumented in this encounter Care Teams Ordnance Officer Relationship Specialty Start Date End Date Ragini So MD [address] [place], [place] [phone] PCP - General Family Medicine 03/31/18 documented as of this encounter
--- OUTSIDE RECORDS SUMMARY | 2024-10-08 15:45 | XMS_ITS | Encounter Summary ---
Author Organization [employer] Address [address] [facility] [address] [place] [address] Care Team Providers Care Community Case Manager Name Role Phone Ragini So MD Primary Care Provide r Reason for Visit * Reason Onset Date Comments PA authorization 05/11/2023 Prior Authorization 05/11/2023 Venlafaxine XR Encounter Details Date Type Department Care Team (Late st Contact Info) Description 05/11/2023 Telephone [facility] [address] [place] [address] Ragini So MD [address] [place] [address] PA authorization; Prior Authorization (Venlafaxine XR ) Social History Tobacco Use Types Packs/Day Years Used Date Smoking Tobacco: Never Passive Smoke Exposure: Never Smokeless Tobacco: Never Alcohol Use Standard Drinks/Week Comments Never 0 (1 standard drink = 0.6 oz pur e alcohol) Depression Answer Date Recorded Patient Health Questionnaire-9 Score 4 10/04/2022 Housing Stability Answer Date Recorded What is your housing situation today? I have tamra perez 04/22/[address] you li ve. Do you have problems with any of the following? None of the above 04/22/2023 Food Insecurity Answer Date Recorded Within the past 12 months, y ou worried that your food would run out before you got money to buy more: Never True 04/22/2023 Within the past 12 months,th e food you bought just didn't last and you didn't have enough money to get more: Never True Transportation Answer Date Recorded In the past 12 months, has l ack of transportation kept you from medical appts, meetings, work or from getting things needed for daily living? No 04/22/2023 Utilities Answer Date Recorded In the past 12 months, has t he electric, gas, oil or water company threatened to shut off services in your home? No 04/22/2023 Depression Answer Date Recorded Patient Health Questionnaire-2 Score 2 10/04/2022 Comments Unknown Sex and Gender Information Value Date Recorded Sex Assigned at Female 05/03/2022 10:34 AM EDT Legal Sex Female 10:34 AM EDT Gender Identity Female 05/03/2022 10:34 AM EDT Sexual Orientation Straight 05/03/2022 10 :34 AM EDT documented as of this encounter Miscellaneous Notes * Telephone Encounter - Harika Chi - 07/15/2023 10:51 AM EST Provider has chosen to not continue with request. Will refer to specialty for follow up * Telephone Encounter - Alfonso Field - 06/06/2023 1:50 PM EST Tc from patient calling in regards venlafaxine XR (Effexor XR) 37.5 MG 24 hr capsule states insurance will not cover medication due to being capsule needs a new script to be generated as tablet * Telephone Encounter - Rafaela Reed RN - 05/31/2023 3:11 PM EST Capsules pended for alternative to tablets. PCP Off * Telephone Encounter - Harika Chi - 05/31/2023 1:40 PM EST Call was made to insurance which confirmed that the capsul version (Venlafaxine ER) does not require a PA and can be order with no issue on their part. * Telephone Encounter - Rafaela Reed RN - 05/23/2023 4:11 PM EST Reviewed message below with PCP, it looks like according to the denial letter that the ER capsules are what the insurance is recommending instead of the tabs that were sent, PCP is wondering if you can confirm this is the information that the denial is relaying? Thank you!! * Telephone Encounter - Harika Chi - 05/20/2023 12:58 PM EST PA for Venlafaxine XR has been Denied. Denial has been uploaded to patient's chart. Would you like to do an appeal? Please Advise. * Telephone Encounter - Amina Ricketts - 05/16/2023 12:34 PM EST Tc from pt requesting status on PA. Please see previous notes. * Telephone Encounter - Floresita Garay - 05/13/2023 12:03 PM EST Tc from pt requesting status on message below. If any questions contact pt at [phone] (welsh speaker) * Telephone Encounter - Dalia Okeefe - 05/11/2023 3:06 PM EST Tc from pt requesting PA authorization for venlafaxine XR (Effexor XR) 37.5 MG 24 hr tablet. documented in this encounter Plan of Treatment Upcoming Encounters Date Type Department Care Team (Late st Contact Info) Description 11/21/2024 11:30 AM EDT Telemedicine [facility] [address] [place] [address] Ragini So MD [address] [place] [address] documented as of this encounter Visit Diagnoses Diagnosis Menopausal symptom documented in this encounter Additional Health Concerns Assessment Noted Time PHQ-9 Depression Total Score: 4 10/05/19 23 10:00 AM EDT documented as of this encounter Care Teams Community Case Manager Relationship Specialty Start Date End Date Ragini So MD [address] [place] [address] PCP - General Family Medicine 03/31/18 documented as of this encounter
--- OUTSIDE RECORDS SUMMARY | 2024-10-08 15:45 | XMS_ITS | Encounter Summary ---
Author Organization [employer] Address [address] [place] [address] [address]t [place] [address] Care Team Providers Care Grinder Set Up Operator Jig Name Role Phone Ragini So MD Primary Care Provide r Encounter Details Date Type Department Care Team ([facility] Contact Info) Description 09/03/2022 Abstract [facility] [address] [place] [address] Janak Chao, DIETER [address] [place] [address] Social History Tobacco Use Types Packs/Day Years Used Date Smoking Tobacco: Never Smokeless Tobacco: Never Alcohol Use Standard Drinks/Week Comments Never 0 (1 standard drink = 0.6 oz pur e alcohol) Comments Unknown Sex and Gender Information Value [...] suspected to have Coronavirus/COVID-19? No / Unsure 08/27/2022 2:23 PM EST documented as of this encounter Plan of Treatment Upcoming Encounters Date Type Department Care Team ([facility] Contact Info) Description 11/21/2024 11:30 AM EDT Telemedicine [facility] MED[facility]INE [address] [place] [address] Ragini So MD [address] [place], [place] [phone] documented as of this encounter Visit Diagnoses Not on filedocumented in this encounter Care Teams Grinder Set Up Operator Jig Relationship Specialty Start Date End Date Ragini So MD [address] [place] [id number] PCP - General Family Medicine 03/31/18 documented as of this encounter
--- OUTSIDE RECORDS SUMMARY | 2024-10-08 15:45 | XMS_ITS | Encounter Summary ---
Author Organization [employer] [facility] Address [address] [place] [address] 7t [place] [address] Care Team Providers Care Paleobotanist Name Role Phone Ragini So MD Primary Care Provide r Encounter Details Date Type Department Care Team (Late Contact Info) Description 06/24/2022 Abstract [facility] ADULT DENTAL [address] [place] [address] Uriel Alberts DDS [address] [place] [address] Social History Tobacco Use Types Packs/Day Years [...] Info) Description 11/21/2024 11:30 AM EDT Telemedicine [facility] MEDICINE [address] [place] [address] Ragini So MD [address] [place] [address] documented as of this encounter Visit Diagnoses Not on filedocumented in this encounter Care Teams Paleobotanist Relationship Specialty Start Date End Date Ragini So MD [address] [place] [id number] PCP - General Family Medicine 03/31/18 documented as of this encounter
--- OUTSIDE RECORDS SUMMARY | 2024-10-08 15:45 | XMS_ITS | Clinical Summary ---
Author Organization [employer] Address [address] [facility] [address] [place] [address] Care Team Providers Care Meeting Manager Name Role Phone Ragini So MD Primary Care Provide r Allergies No known active allergies Medications diphenhydrAMIN E (Benadryl Allergy) 25 MG tablet Take 2 tablets by mouth every 4 (four) hours. 09/17/19 21 Active fluticasone (Flonase Allergy Relief) 50 MCG/ACT nasal spray Administer 2 sprays into affected nostril(s) at bed time. 01/09/20 19 Active hydrocortisone 2.5 % cream Apply topically every 12 (twelve) hours. 01/13/20 22 Active traZODone (Desyrel) 50 MG tablet Take 1 tablet by mouth at bed time. 11/27/19 22 Active LORazepam (Ativan) 1 MG tabletIndicati ons:Anxiety TAKE 1 TABLET BY MOUTH AT BEDTIME 28 tablet 05/31/20 23 Active albuterol 108 (90 Base) MCG/ACT inhaler Inhale 2 puffs every 4 (four) hours if needed for wheezing or shortness of breath. 18 g 06/29/20 23 Active loratadine-pse udoephedrine ER (Claritin-D 24-hour) 10-240 MG 24 hr tabletIndicati ons:Cough in adult Take 1 tablet by mouth in the morning for 7 days. 7 tablet 06/29/20 23 Active Diclofenac Sodium 1 % gelIndications :Left wrist pain,Neuropath ic pain APPLY 2 GRAMS TOPICALLY THREE TIMES DAILY TO AFFECTED AREA(S) 100 g 2 04/13/20 24 Active gabapentin (Neurontin) 400 MG capsuleIndicat ions:Neuropath ic pain Take 1 capsule (400 mg) by mouth 3 times daily. 90 capsule 04/13/20 24 Active levocetirizine (Xyzal) 5 MG tablet TAKE 1 TABLET BY MOUTH EVERY EVENING 90 tablet 1 07/02/20 24 Active cholecalcifero l (D3 Super Strength) 50 MCG (1999 UT) capsuleIndicat ions:Vitamin D deficiency TAKE 1 CAPSULE BY MOUTH EVERY DAY 90 capsule 1 07/05/19 25 Active citalopram (CeleXA) 20 MG tabletIndicati ons:Anxiety TAKE 1 TABLET BY MOUTH EVERY DAY 90 tablet 1 08/09/19 25 Active Tirzepatide-We ight Management (Zepbound) 5 MG/0.5ML solution auto-injectorI ndications:Cla ss 1 obesity due to excess calories with serious comorbidity and body mass index (BMI) of 30.0 to 30.9 in adult Inject 0.5 mL (5 mg) under the skin 1 (one) time per week. 2 mL 09/26/19 25 Active Phentermine-To piramate 3.75-23 MG capsule sustained-rele ase 24 hrIndications: Class 1 obesity without serious comorbidity with body mass index (BMI) of 30.0 to 30.9 in adult, unspecified obesity type Take 1 tablet by mouth Once per day. 30 capsule 05/21/20 24 025 Discontinued Tirzepatide-We ight Management (Zepbound) 2.5 MG/0.5ML solution auto-injectorI ndications:Cla ss 1 obesity due to excess calories with serious comorbidity and body mass index (BMI) of 30.0 to 30.9 in adult Inject 0.5 mL (2.5 mg) under the skin 1 (one) time per week. 2 mL 06/28/20 24 025 Discontinued(Re order (will not trigger notification to Pharmacy)) Tirzepatide-We ight Management (Zepbound) 2.5 MG/0.5ML solution auto-injectorI ndications:Cla ss 1 obesity due to excess calories with serious comorbidity and body mass index (BMI) of 30.0 to 30.9 in adult Inject 0.5 mL (2.5 mg) under the skin 1 (one) time per week. 2 mL 09/20/19 25 025 Discontinued clotrimazole (Gyne-Lotrimin ) 1 % vaginal creamIndicatio ns:Vaginal itching Insert 1 applicator into the vagina in the evening for 7 days. 45 g 09/26/19 025 Active Problems Problem Noted Date Diagnosed Date Bilateral chronic knee pain 09/25/2024 Assessment & Plan (09/25/2024 1:32 PM EDT): Bursitis? I advised patient to take acetaminophen as needed I will refer patient to orthopedics Vaginal itching 09/25/2024 Assessment & Plan (09/25/2024 1:32 PM EDT): I will treat empirically with clotrimazole vaginal cream and advised if problem persist or worse to come to the walk-in clinic or urgent care for further evaluation Class 1 obesity due to exces s calories with serious comorbidity and body mass index (BMI) of 30.0 to 30.9 in adult 05/21/2024 Assessment & Plan (09/25/2024 1:33 PM EDT): Extensive counseling about healthy diet and exercise done today I will increase her Zepbound to 5 mg weekly I will follow-up in 4 weeks Assessment & Plan (06/28/2024 10:25 AM EST): Today extensive discussion was done about life style modifications I advise healthy diet (low calorie) and cardiovascular exercise I will start patient on zepbound, medication side effects and contraindications where reviewed with patient Assessment & Plan (05/21/2024 4:35 PM EST): Today extensive discussion was done about life style modifications I advise healthy diet (low calorie) and cardiovascular exercise Patient has tried healthy diet and exercise for 3 years, she also went to [facility] but she keeps gaining weight I decided to start her on phentermine and topiramate UTI symptoms 01/19/2024 Bilateral wrist pain 01/19/2024 Assessment & Plan (01/19/2024 11:25 AM EDT): Continue to follow with specialist Fibromyalgia 01/19/2024 Assessment & Plan (05/21/2024 4:32 PM EST): Patient was educated about multidisciplinary approach for her condition, it was advise cardiovascular exercise, maintain hydration, treat anxiety/depression and take medications as directed Assessment & Plan (01/19/2024 11:26 AM EDT): Patient was educated about multidisciplinary approach for her condition, it was advise cardiovascular exercise, maintain hydration, treat anxiety/depression and take medications as directed Patient information provided C/w gabapentin 400mg TID Menopausal symptoms 01/19/2024 Hot flashes due to menopause 05/06/2023 Assessment & Plan (07/12/2023 12:22 PM EST): I call and find out medication was not dispense because she is also being follow by psychiatrist she is on citalopram and duloxetine, so I explain to her venlafaxine is also same family medication and will not be beneficial at this point I will refer patient to gynecology for further evaluation and management Assessment & Plan (05/06/2023 4:48 PM EDT): Counseling done Wear light clothing at home, use fans and maintain hydration with cold water I will start her on venlafaxine RTC 4 weeks televisit Neck pain 04/29/2023 Acute pain of left shoulder 04/29/2023 Myopia of both eyes 01/17/2023 Neuropathy of both feet 01/17/2023 Assessment & Plan (03/30/2023 2:02 PM EDT): orthopedic shoes will be prescribe for patient Dental calculus 12/10/2022 Varicose veins of both lower extremities with pa in 10/04/2022 Assessment & Plan (10/04/2022 10:40 AM EDT): Patient reports she had noticed protrude veins on both of her legs and also reports she has notice swelling of her legs reports this had being painful and will like to be seen by specialist Left wrist pain 10/04/2022 Assessment & Plan (01/17/2023 10:33 AM EDT): Continue to follow with specialist Assessment & Plan (12/01/2022 3:38 PM EDT): XRAY order printed and given to patient Assessment & Plan (10/04/2022 10:42 AM EDT): Patient reports left wrist pain worsening for the past month, she denies trauma or trigger activity , reports it has being difficult for her to perform regular activities at home due to pain I ordered XRAY today with results I will possibly refer her to specialist Health care maintenance 10/04/2022 Pain in both feet 10/04/2022 Assessment & Plan (02/17/2023 4:30 PM EDT): Multiple factors including plantar fascitis, I will prescribe for patient orthopedic/therapeutic shoes with inserts Assessment & Plan (10/04/2022 10:45 AM EDT): Patient have had h/o pain on both feet, multiple reasons (neuropathy, plantar fascitis, heel sprue) she has being seen by podiatry before I will refer her back for further management Menopausal symptom 09/30/2022 Overweight 09/30/2022 Shoulder pain 09/30/2022 Suprapubic pain 09/30/2022 Swallowing painful 09/30/2022 Mixed anxiety and depressive disorder 08/29/2022 Overview (08/29/2022): -Continue following with psychiatrist -May take citalopram at bedtime instead of in the morning. Reviewed med safety. -Denies SI/HI/thoughts of self harm Mood disorder 08/29/2022 Plantar fasciitis 08/29/2022 Assessment & Plan (03/30/2023 2:02 PM EDT): Orthopedic shoes will be prescribe for patient Anxiety 2018 Encounters Date Type Department Care Team Description 09/25/2024 1:00 PM EDT Telemedicine [facility] [address] [place] [phone] Ragini So MD Bilateral chronic knee pain (Primary Dx); Vaginal itching; Class 1 obesity due to excess calories with serious comorbidity and body mass index (BMI) of 30.0 to 30.9 in adult 09/19/2024 Refill [facility] [address] [place] [address] Ragini So MD Class 1 obesity due to excess calories with serious comorbidity and body mass index (BMI) of 30.0 to 30.9 in adult 08/24/2024 Travel 08/09/2024 Refill [facility] [address] [place] [address] Ragini So MD Anxiety from Last 3 Months Immunizations Name Administration Dates Next Due Influenza Injectable Quadriv alant Preservative Free IIV4 MDCK 03/27/2021 Influenza injectable quadriv alent IIV4 with preservative 03/20/2019,2018 Influenza injectable quadrivalent preservative f ree 04/23/2020 Influenza, IIV3, injectable 07/15/2017 Influenza, trivalent, adjuvanted 07/15/2017 Buzz SARS-CoV-2 Vaccination 10/08/2020 Moderna Covid-19 Vaccine 12+ 07/23/2020 Pfizer Covid-19 Vaccine 12+ Bivalent 06/08/2022 Tdap 04/10/2018 Zoster, Recombinant 12/29/2021,10/08/2021 Social History Tobacco Use Types Packs/Day Years Used Date Smoking Tobacco: Never Passive Smoke Exposure: Never Smokeless Tobacco: Never Tobacco Cessation:Counseling Given: Not Answered Alcohol Use Standard Drinks/Week Comments Never 0 [...] Orientation Straight 05/03/2022 10 :34 AM EDT Last Filed Vital Signs Vital Sign Reading Time Taken Comments Blood Pressure 134/81 05/21/2024 1:29 PM EST Pulse 68 05/21/2024 1:29 PM EST Temperature 35.1 ??C (95.1 ??F) 05/21/2024 1:29 PM ES T Respiratory Rate 16 05/21/2024 1:29 PM EST Oxygen Saturation 98% 01/19/2024 10:43 AM EDT Inhaled Oxygen Concentration - - Weight 74 kg (163 lb 3.2 oz) 05/21/2024 1:29 PM EST Height 154.9 cm (5' 1 ) 05/21/2024 1:29 PM EST Body Mass Index 30.84 05/21/2024 1:29 PM EST Plan of Treatment Upcoming Encounters Date Type Department Care Team (Late st Contact Info) Description 11/21/2024 11:30 AM EDT Telemedicine [facility] [address] [place] [phone] Ragini So MD [address] [place] [address] Health Maintenance Due Date Last Done Comments CT Colonography 1970 FIT DNA/Cologuard 1970 FIT 1970 FOBT 1970 Sigmoidoscopy 1970 Hepatitis B Vaccines (1 of 3 - 19+ 3-dose series) 1989 Pap Smear 1991 HPV/Cotest 2000 Pneumococcal Vaccine: 50+ Years (1 of 1 - PCV) 2020 Dental Oral Exam 06/12/2023 12/10/2022 Dental Prophylaxis 06/12/2023 12/10/2022 Dental X-Ray: Bitewings 12/12/2023 12/10/2022 COVID-19 Vaccine ( season) 2024 06/08/2022, 10/08/2020, 07/23/2020 Influenza Vaccine (#1) 2024 , 04/23/2020, 03/20/2019, Additional history exists Mammogram 08/09/2024 08/09/2023, 12/2023, 11/08/2022, Additional history exists Alcohol/Substance Use Screening 01/18/2025 01/19/2024 Depression Screening 01/18/2025 01/19/2024, 01/19/20 24 SDOH Screening 01/18/2025 01/19/2024 Tobacco Screening 05/21/2025 05/21/2024 Dental X-Ray: Full Mouth 06/15/2025 06/14/2022 DTaP/Tdap/Td Vaccines (2 - Td or Tdap) 04/10/2028 04/10/2018 Lipid Panel 01/18/2029 01/19/2024, 040 09/2022, 10/20/2021, Additional history exists Colonoscopy 10/13/2030 10/13/2020 Colorectal Cancer Screening 10/13/2030 RSV Patients and Patients Aged 60 years or older (1 - 1-dose 75+ series) 2045 Zoster Vaccines Completed 12/29/2021, 10/08/2021 HIV Screening Completed 01/19/2024, 03/20/2021 Hepatitis C Screening Completed 01/19/2024 Cervical Cancer Screening Discontinued HIB Vaccines Aged Out No longer eligi ble based on patient's age to complete this topic HPV Vaccines Aged Out No longer eligi ble based on patient's age to complete this topic Hepatitis A Vaccines Aged Out No long er eligible based on patient's age to complete this topic IPV Vaccines Aged Out No longer eligi ble based on patient's age to complete this topic Meningococcal Vaccine Aged Out No lawrence angelica eligible based on patient's age to complete this topic RSV under 20 months Aged Out No longe r eligible based on patient's age to complete this topic Rotavirus Vaccines Aged Out No longer eligible based on patient's age to complete this topic Procedures Procedure Name Priority Date/Time Associated Diagnosis Comments HIV 1/2 ANTIGEN/ANTIBODY, FOURTH GENERATION W/RFL Routine 01/19/2024 12:40 PM EDT Health care maintenance HEPATITIS C VIRAL RNA, QUANTITATIVE, REAL-TIME PCR Routine 01/19/2024 12:20 PM EDT Health care maintenance LIPID PANEL WITH REFLEX TO DIRECT LDL Routine 01/19/2024 12:20 PM EDT Health care maintenance BI MAMMOGRAM DIAGNOSTIC TOMOSYNTHESIS BILATERAL Routine 08/09/2023 1:20 PM EST PROPHYLAXIS - ADULT Routine 12/10/2022 1 0:00 AM EDT BITEWINGS - 4 RADIOGRAPHIC IMAGES Routine 12/10/2022 10:00 AM EDT PERIODIC ORAL EVALUATION - ESTABLISHED PATIENT Routine 12/10/2022 10:00 AM EDT PANORAMIC RADIOGRAPHIC IMAGE Routine 06/14/2022 3:00 PM EST HM COLONOSCOPY Routine 10/13/2020 from Last 3 Months or Most Recently Relevant to Health Maintenance Results * HIV-1/2 Antigen and Antibodies, Fourth Generation, with Reflexes (01/19/2024 12:40 PM EDT) HIV AB/AG Nonreactive Nonreactive [facility] Comment:HIV-1 p24 Ag and/or HIV-1/HIV-2 Ab not detected.A test result that is nonreactive does not exclude thepossibility of exposure to or infection with HIV-1 and/orHIV-2. Nonreactive results in this assay for individualswith prior exposure to HIV-1 and/or HIV-2 may be due toantigen and antibody levels that are below the limit ofdetection of this assay.The [employer] HIV Ag/Ab Combo assay result andsupplemental assay results should be interpreted inconjunction with the patient's clinical presentation,history and other laboratory results. If the results areinconsistent with clinical evidence, additional testing issuggested to confirm the result. Blood Venous blood specimen / Unknown 01/19/2024 12:40 PM EDT 01/19/2024 1:03 PM EDT us Ragini Cline MD LAB BLOOD ORDERABLES Final Result [facility] [address] [place] [phone] * (ABNORMAL) Lipid Panel with Reflex to Direct LDL (01/19/2024 12:20 PM EDT) Triglycerides 95 <150 mg/dL [facility] Comment:Desirable Triglyceri de: less than 150 mg/dLBorderline High Triglyceride 150-199 mg/dLHigh Triglyceride: 200-499 mg/dLVery High Triglyceride: greater than or equal to 5OO mg/dL Cholesterol 177 <200 mg/dL [facility] Comment:Desirable Cholestero l: less than 200 mg/dLBorderline High Cholesterol: 200-239 mg/dLHigh Cholesterol: greater than 239 mg/dL LDL Cholesterol Calculated 104(H) <100 mg/dL [facility] Comment:Desirable LDL: less than 100 mg/dLNear Optimal/Above Optimal LDL: 110- 129 mg/dLBorderline High LDL: 130-159 mg/dLHigh LDL: 160-189 mg/dLVery High LDL: greater than or equal to 190 mg/dL HDL Cholesterol 54 >40 mg/dL [facility] Comment:Desirable HDL: great er than 40 mg/dL Note: This HDL assay may give artificially low results in patients with liver disease. Blood 01/19/2024 12:2 0 PM EDT 01/19/2024 1:03 PM EDT Ragini Cline MD LAB BLOOD ORDERABLES Final Result Performing Organization Address [facility] de Phone Number [facility] [address] [place] [phone] * Hepatitis C Viral RNA, Quantitative, Real-Time PCR (01/19/2024 12:20 PM EDT) Hepatitis C Viral Load <15 NOT DETECTED NOT DETECTED IU/mL [facility] HCV Log PCR <1.18 NOT DETECTED NOT DETECTED Log IU/mL [facility] Comment:For additional infor valery, please refer tohttp://education.Playthe.net/faq/LFE77a7(This link is being provided for informational/educational purposes only.)THIS TEST WAS PERFORMED AT:[facility] [place] [phone] BAY MD Blood 01/19/2024 12:2 0 PM EDT 01/19/2024 1:03 PM EDT Ragini Cline MD LAB BLOOD ORDERABLES Final Result Performing Organization Address [facility] de Phone Number [facility] [address] [place] [phone] * BI Mammogram Diagnostic Tomosynthesis Bilateral (08/09/2023 1:20 PM EST) Anatomical Region Laterality Modality Breast Bilateral Mammography 08/09/2023 1:20 PM EST Narrative 08/09/2023 2:18 PM EST ? [facility] ? [address] ?[place] [address] ? Mammography Report ? Signed ? Patient: Rome Younger,Allyssa ?MR#: [id number] ?? [id number] ? : 1970 ?Acct:[id number] ? Age/Sex: 53 / F ?ADM Date: 08/09/23 ? Loc: HO.MAMMO ? Attending Dr: Livia Macias NUTRITION SERVICES ASSISTANT ? Ordering Physician: Livia Macias NUTRITION SERVICES ASSISTANT ?Results: 1Negativ ?? e ? Date of Service: 08/09/23 ?Follow Up: 1 Year From Orig ?? inal Mammogram ? Procedure(s): MM tomosynthesis diagnostic BI ?? Accession Number(s): [id number] ? cc: Livia Macias NP; Janeen Wade MD ? EXAMINATION: ?? MM DIAGNOSTIC DIGITAL BREAST TOMOSYNTHESIS, BILATERAL ?? US BREAST LIMITED, RIGHT ? MAMMOGRAPHY: ?? CLINICAL INFORMATION: ? 53 year female complaining of right breast pain and fullness lower ?? outer quadrant. History of breast cancer in mother at age 50. Patient ?? also due for bilateral screening. ? COMPARISON: ?? Mammography: 11/08/2022, 11/02/2021, 10/30/2020, 08/21/2019 ? TECHNIQUE: ?? Digital breast tomosynthesis is performed in both the craniocaudal and ?? mediolateral oblique views along with computer-aided detection (CAD). ?? Synthesized 2D images are generated from the tomosynthesis. In addition ?? a full-field 3-D digital right exaggerated CC projection and right 90 ?? degree ML projection were provided. ? FINDINGS: ?? There are scattered areas of fibroglandular density (ACR BI-RADS breast ?? composition Category b). ? There are no suspicious masses, suspicious grouped calcifications, or ?? areas of architectural distortion in either breast. The parenchymal ?? pattern is stable from prior exams. ??No mammographic abnormality in the ?? right breast lower outer quadrant in the region of breast pain. ? No skin or axillary abnormalities. ? ULTRASOUND: ?? CLINICAL INFORMATION: ?? As above. ? COMPARISON: ?? None contributory. ? TECHNIQUE: ?? Targeted right sonographic evaluation was performed using a high ?? frequency linear transducer. Attention was focused on the right breast ?? lower outer quadrant in the region of breast pain. Selected archived ?? documentation. ? FINDINGS: ? RIGHT BREAST: There is a mixture of fatty and fibroglandular tissue. ?? No suspicious mass is seen. ??There is no pathologic acoustic shadowing. ?? There was no cystic abnormality. No ultrasonographic correlate present ?? in the right breast lower outer quadrant to explain right breast pain ?? in this region. ? MM/MM tomosynthesis diagnostic BI ?? IMPRESSION: ?? No findings in either breast suspicious for malignancy. ? No mammographic or ultrasonographic correlate to explain right breast ?? pain in the lower outer quadrant. Recommend clinical management. ? Otherwise, recommend returning to routine annual screening. ? OVERALL ASSESSMENT: ?? Mammography: BI-RADS 1 - Negative ?? Ultrasound: BI-RADS 1 - Negative ? RECOMMENDATION: ?? 1. Patient should be managed based on the clinical impression. ?2. ?? Otherwise, routine annual screening mammography. ? Results were provided to the patient at time of visit by the ?? technologist. ? This patient's information was entered into a reminder system with a ?? target due date for their next mammogram. ? Dictated By: ?Kareem Cleveland MD ? Signed By: ?<Electronically signed by Kareem Cleveland MD in OV> ?08/09/23 1414 ? DD/ 1320 ? TD/TT: ? Vocational Nurse Lvn: ? Procedure Note Donotuseinterpreter, Image - 08/09/2023 [facility] [address] [place], [place] [address] Mammography Report Signed Patient: Allyssa CastroMR#: [id number] : 1970Acct:[id number] Age/Sex: 53 / FADM Date: 08/09/23 Loc: HO.MAMMO Attending Dr: Livia Macias NP Ordering Physician: Livia Macias NPResults: 1Negativ e Date of Service: 08/09/23Follow Up: 1 Year From Orig inal Mammogram Procedure(s): MM tomosynthesis diagnostic BI Accession Number(s): [id number] cc: Livia Macias NUTRITION SERVICES ASSISTANT; Janeen Wade MD EXAMINATION: MM DIAGNOSTIC DIGITAL BREAST TOMOSYNTHESIS, BILATERAL US BREAST LIMITED, RIGHT MAMMOGRAPHY: CLINICAL INFORMATION: 53 year female complaining of right breast pain and fullness lower outer quadrant. History of breast cancer in mother at age 50. Patient also due for bilateral screening. COMPARISON: Mammography: 11/08/2022, 11/02/2021, 10/30/2020, 08/21/2019 TECHNIQUE: Digital breast tomosynthesis is performed in both the craniocaudal and mediolateral oblique views along with computer-aided detection (CAD). Synthesized 2D images are generated from the tomosynthesis. In addition a full-field 3-D digital right exaggerated CC projection and right 90 degree ML projection were provided. FINDINGS: There are scattered areas of fibroglandular density (ACR BI-RADS breast composition Category b). There are no suspicious masses, suspicious grouped calcifications, or areas of architectural distortion in either breast. The parenchymal pattern is stable from prior exams. No mammographic abnormality in the right breast lower outer quadrant in the region of breast pain. No skin or axillary abnormalities. ULTRASOUND: CLINICAL INFORMATION: As above. COMPARISON: None contributory. TECHNIQUE: Targeted right sonographic evaluation was performed using a high frequency linear transducer. Attention was focused on the right breast lower outer quadrant in the region of breast pain. Selected archived documentation. FINDINGS: RIGHT BREAST: There is a mixture of fatty and fibroglandular tissue. No suspicious mass is seen. There is no pathologic acoustic shadowing. There was no cystic abnormality. No ultrasonographic correlate present in the right breast lower outer quadrant to explain right breast pain in this region. MM/MM tomosynthesis diagnostic BI IMPRESSION: No findings in either breast suspicious for malignancy. No mammographic or ultrasonographic correlate to explain right breast pain in the lower outer quadrant. Recommend clinical management. Otherwise, recommend returning to routine annual screening. OVERALL ASSESSMENT: Mammography: BI-RADS 1 - Negative Ultrasound: BI-RADS 1 - Negative RECOMMENDATION: 1. Patient should be managed based on the clinical impression. 2. Otherwise, routine annual screening mammography. Results were provided to the patient at time of visit by the technologist. This patient's information was entered into a reminder system with a target due date for their next mammogram. Dictated By: Kareem Cleveland MD Signed By: <Electronically signed by Kareem Cleveland MD in OV> 08/09/23 1414 DD/ 1320 TD/TT: Vocational Nurse Lvn: Livia Macias CEMENT [facility] IMG BI PROCEDURES Final Result * Hm Colonoscopy (10/13/2020) Colonoscopy Normal Normal Narrative Abigail Braden - 10/13/2020 Repeat Colonoscopy in 10 years or earlier if clinically indicated see legacy note dated 10/13/2020 Historical Provider HEALTH MAINTENANCE Final Result from Last 3 Months or Most Recently Relevant to Health Maintenance Insurance [facility] [employer] C/O MEDATA Care Teams Meeting Manager Relationship Specialty Start Date End Date Ragini So MD [address] [place] [address] PCP - General Family Medicine 03/31/18
--- OUTSIDE RECORDS SUMMARY | 2024-10-08 15:45 | XMS_ITS | Encounter Summary ---
Author Organization [employer] Address [address] [facility] 7t [place] [address] Care Team Providers Care Range Mechanic Name Role Phone Ragini So MD Primary Care Provide r Encounter Details Date Type Department Care Team ([facility] st Contact Info) Description 05/23/2023 Orders Only [facility] 230 [place], [place] [phone] Ragini So MD 230 [place], [place] [phone] Hot flashes due to menopause (Primary Dx) Social History Tobacco Use Types Packs/Day Years [...] Info) Description 11/21/2024 11:30 AM EDT Telemedicine [facility] [address] [place] [address] [phone] Ragini So MD 230 [place] [address] documented as of this encounter Visit Diagnoses Diagnosis Hot flashes due to menopause- Primary documented in this encounter Additional Health Concerns Assessment Noted Time PHQ-9 Depression Total Score: 4 10/05/19 23 10:00 AM EDT documented as of this encounter Care Teams Range Mechanic Relationship Specialty Start Date End Date Ragini So MD [address] [place] [phone] PCP - General Family Medicine 03/31/18 documented as of this encounter
--- OUTSIDE RECORDS SUMMARY | 2024-10-08 15:45 | XMS_ITS | Encounter Summary ---
Author Organization [employer] [facility] Address [address] [place] [address] 7t [place] [address] Care Team Providers Care Lead Database Developer Name Role Phone Ragini So MD Primary Care Provide r Encounter Details Date Type Department Care Team (Latest Contact Info) Description 09/11/2020 Abstract [facility] CONVERSIONS Dental, Provider, DDS Social History [...] 11/21/2024 11:30 AM EDT Telemedicine [facility] MEDICINE 230 [place] [address] Ragini So MD 230 [place] [address] documented as of this encounter Visit Diagnoses Not on filedocumented in this encounter Care Teams Lead Database Developer Relationship Specialty Start Date End Date Ragini So MD 230 [place], [place] [phone] PCP - General Family Medicine 03/31/18 documented as of this encounter
--- OUTSIDE RECORDS SUMMARY | 2024-10-08 15:45 | XMS_ITS | Encounter Summary ---
Author Organization [facility] Address [address] [place] [address] 7t [place] [address] Care Team Providers Care Medical Bill Processor Name Role Phone Ragini So MD Primary Care Provide r Encounter Details Date Type Department Care Team (Latest Contact Info) Description 06/06/2019 Abstract [facility] CONVERSIONS Dental, Provider, DDS Social History [...] Info) Description 11/21/2024 11:30 AM EDT Telemedicine [facility] MED[facility] 230 [place] [address] Ragini So MD 230 [place] [address] documented as of this encounter Visit Diagnoses Not on filedocumented in this encounter Care Teams Medical Bill Processor Relationship Specialty Start Date End Date Ragini So MD 230 [place], [place] [phone] PCP - General Family Medicine 03/31/18 documented as of this encounter
--- OUTSIDE RECORDS SUMMARY | 2024-10-08 15:45 | XMS_ITS | Encounter Summary ---
Author Organization [employer] Address [address] [place] [address] 7t [place] [address] Care Team Providers Care Pairing Machine Operator Name Role Phone Ragini So MD Primary Care Provide r Encounter Details Date Type Department Care Team ([facility] Contact Info) Description 09/03/2022 Abstract [facility] ADULT DENTAL 230 [place] [address] Janak Chao, DIETER 230 [place] [address] Social History Tobacco Use Types Packs/Day Years [...] Upcoming Encounters Date Type Department Care Team ([facility] Contact Info) Description 11/21/2024 11:30 AM EDT Telemedicine [facility] MEDICINE 230 [place] [address] Ragini So MD 230 [place], [place] [phone] documented as of this encounter Visit Diagnoses Not on filedocumented in this encounter Care Teams Pairing Machine Operator Relationship Specialty Start Date End Date Ragini So MD [address] [place] [id number] PCP - General Family Medicine 03/31/18 documented as of this encounter
--- OUTSIDE RECORDS SUMMARY | 2024-10-08 15:46 | XMS_ITS | Encounter Summary ---
Author Organization [employer] Address [address] [facility] 7t [place] [address] Care Team Providers Care Certified Corporate Travel Executive Name Role Phone Ragini So MD Primary Care Provide r Encounter Details Date Type Department Care Team (Late st Contact Info) Description 07/27/2023 Abstract [facility] MEDICINE 230 [place], [place] [phone] Ragini So MD 230 [place], [place] [phone] Social History Tobacco Use Types Packs/Day Years [...] 11/21/2024 11:30 AM EDT Telemedicine [facility] MEDICINE [address] [place] [address] Ragini So MD [address] [place] [address] documented as of this encounter Visit Diagnoses Not on filedocumented in this encounter Additional Health Concerns Assessment Noted Time PHQ-9 Depression Total Score: 4 10/05/19 23 10:00 AM EDT documented as of this encounter Care Teams Certified Corporate Travel Executive Relationship Specialty Start Date End Date Ragini So MD [address] [place] [phone] PCP - General Family Medicine 03/31/18 documented as of this encounter
--- OUTSIDE RECORDS SUMMARY | 2024-10-08 15:46 | XMS_ITS | Encounter Summary ---
Author Organization [employer] Address [address] [facility] 7t [place] [address] Care Team Providers Care Developer Advocate Name Role Phone Ragini So MD Primary Care Provide r Reason for Visit * Reason Comments Med Refill Encounter Details Date Type Department Care Team ([facility] st Contact Info) Description 05/30/2023 Refill [facility] CHC MED & PEDS [address] [place], [place] [phone] Ragini So MD 230 [place] [address] Anxiety Social History Tobacco Use Types Packs/Day Years [...] Info) Description 11/21/2024 11:30 AM EDT Telemedicine [facility] MEDICINE [address] [place] [address] Ragini So MD 230 [place] [address] documented as of this encounter Visit Diagnoses Diagnosis Anxiety Anxiety state, unspecified documented in this encounter Additional Health Concerns Assessment Noted Time PHQ-9 Depression Total Score: 4 10/05/19 23 10:00 AM EDT documented as of this encounter Care Teams Developer Advocate Relationship Specialty Start Date End Date Ragini So MD [address] [place] [address] PCP - General Family Medicine 03/31/18 documented as of this encounter
== END 2024-10-08 14:05 | disposition home or self-care (01) ==
LOC: HO.HOS 13:16
PROVIDERS: PCP Internal Medicine; Visit Provider Physician Assistant
DX: M17.0 Bilateral primary osteoarthritis of knee (principal)
CPT/HCPCS: 20610; 99203

== ENCOUNTER → 2024-10-08 13:19 | Outpatient (BNV) | payer OTHER, SELFPAY | PROVIDERS: Visit Provider Radiology Diagnostic Radiology | DX: M25.562 Pain in left knee (principal); M25.561 Pain in right knee | CPT/HCPCS: 73562 ==

== ENCOUNTER 2024-10-08 14:30 | Outpatient (REF) | payer OTHER, SELFPAY ==
--- NOTE | ~2024-10-08 | XR_ITS ---
EXAMINATION: XR KNEE, RIGHT XR KNEE, LEFT CLINICAL INFORMATION: M25.569 - Pain in unspecified knee COMPARISON: None available. TECHNIQUE: Three views of each knee. FINDINGS: Right Knee: No fracture, dislocation, or suspicious bone lesion. Normal alignment. Mild medial, lateral, and more significant patellofemoral degenerative arthritis. There is lateral patellar tilt. No evidence of joint effusion. Normal soft tissues. Left Knee: No fracture, dislocation, or suspicious bone lesion. Normal alignment. Mild medial, lateral, and more significant patellofemoral degenerative arthritis. No evidence of joint effusion. Normal soft tissues. XR/XR knee RT 3V IMPRESSION: 1. Bilateral medial and lateral compartment mild osteoarthrosis, with more significant arthrosis in the patellofemoral joints, right greater than left. 2. No evidence of joint effusion. Electronically signed by: Kareem Cleveland MD 10/09/2024 11:33 AM EDT
--- NOTE | ~2024-10-08 | XR_ITS ---
EXAMINATION: XR KNEE, RIGHT XR KNEE, LEFT CLINICAL INFORMATION: M25.569 - Pain in unspecified knee COMPARISON: None available. TECHNIQUE: Three views of each knee. FINDINGS: Right Knee: No fracture, dislocation, or suspicious bone lesion. Normal alignment. Mild medial, lateral, and more significant patellofemoral degenerative arthritis. There is lateral patellar tilt. No evidence of joint effusion. Normal soft tissues. Left Knee: No fracture, dislocation, or suspicious bone lesion. Normal alignment. Mild medial, lateral, and more significant patellofemoral degenerative arthritis. No evidence of joint effusion. Normal soft tissues. XR/XR knee LT 3V IMPRESSION: 1. Bilateral medial and lateral compartment mild osteoarthrosis, with more significant arthrosis in the patellofemoral joints, right greater than left. 2. No evidence of joint effusion. Electronically signed by: Kareem Cleveland MD 10/09/2024 11:33 AM EDT
--- OUTSIDE RECORDS SUMMARY | 2024-10-09 17:40 | XMS_ITS | Encounter Summary ---
Author Organization [employer] Address [address] [facility] 7t [place] [address] Care Team Providers Care Healthcare Technician Name Role Phone Ragini So MD Primary Care Provide r Reason for Visit * Reason Comments Med Refill Encounter Details Date Type Department Care Team ([facility] st Contact Info) Description 05/30/2023 Refill [facility] CHC MED & PEDS [address] [place], [place] [phone] Ragini So MD 230 [place] [address] Anxiety Social History Tobacco Use Types Packs/Day [...] Info) Description 11/21/2024 11:30 AM EDT Telemedicine [facility] MEDICINE [address] [place] [address] Ragini So MD 230 [place] [address] documented as of this encounter Visit Diagnoses Diagnosis Anxiety Anxiety state, unspecified documented in this encounter Additional Health Concerns Assessment Noted Time PHQ-9 Depression Total Score: 4 10/05/19 23 10:00 AM EDT documented as of this encounter Care Teams Healthcare Technician Relationship Specialty Start Date End Date Ragini So MD [address] [place] [address] PCP - General Family Medicine 03/31/18 documented as of this encounter
--- OUTSIDE RECORDS SUMMARY | 2024-10-09 17:40 | XMS_ITS | Encounter Summary ---
Author Organization [employer] [facility] Address [address] [place] [address] 7t [place] [address] Care Team Providers Care Third Rail Installer Name Role Phone Ragini So MD Primary Care Provide r Encounter Details Date Type Department Care Team (Latest Contact Info) Description 06/06/2019 Abstract [facility] CONVERSION[facility] Dental, Provider, DDS Social History Tobacco [...] Info) Description 11/21/2024 11:30 AM EDT Telemedicine [facility] 230 [place] [address] Ragini So MD 230 [place] [address] documented as of this encounter Visit Diagnoses Not on filedocumented in this encounter Care Teams Third Rail Installer Relationship Specialty Start Date End Date Ragini So MD 230 [place], [place] [phone] PCP - General Family Medicine 03/31/18 documented as of this encounter
--- OUTSIDE RECORDS SUMMARY | 2024-10-09 17:40 | XMS_ITS | Encounter Summary ---
Author Organization [employer] Address [address] [facility] 7t [place] [address] Care Team Providers Care Director Case Management Name Role Phone Ragini So MD Primary Care Provide r Reason for Visit * Reason Onset Date Comments Medication Question 06/21/2024 Encounter Details Date Type Department Care Team ([facility] Contact Info) Description 06/21/2024 Telephone [facility] MEDICINE 230 [place], [place] [phone] Ragini So MD 230 [place], [place] [phone] Medication Question Social History Tobacco Use Types [...] call back for another medication. Please contact: [phone] (Turkmen) documented in this encounter Plan of Treatment Upcoming Encounters Date Type Department Care Team (Late st Contact Info) Description 11/21/2024 11:30 AM EDT Telemedicine [facility] MEDICINE 230 [place] [address] Ragini So MD 230 [place], [place] [phone] documented as of this encounter Visit Diagnoses Not on filedocumented in this encounter Additional Health Concerns Assessment Noted Time PHQ-9 Depression Total Score: 6 01/19/20 24 10:44 AM EDT documented as of this encounter Care Teams Director Case Management Relationship Specialty Start Date End Date Ragini So MD 230 [place] [address] PCP - General Family Medicine 03/31/18 documented as of this encounter
--- OUTSIDE RECORDS SUMMARY | 2024-10-09 17:40 | XMS_ITS | Encounter Summary ---
Author Organization [facility] [facility] Address [address] [place] [address] 7t [place] [address] Care Team Providers Care Shield Runner Name Role Phone Ragini So MD Primary Care Provide r Encounter Details Date Type Department Care Team (Late Contact Info) Description 06/24/2022 Abstract [facility] ADULT DENTAL 230 [place] [address] Uriel Alberts DDS [address] [place] [address] Social History Tobacco Use Types Packs/Day Years [...] 11/21/2024 11:30 AM EDT Telemedicine [facility] MEDICINE [address] [place] [address] Ragini So MD 230 [place] [address] documented as of this encounter Visit Diagnoses Not on filedocumented in this encounter Care Teams Shield Runner Relationship Specialty Start Date End Date Ragini So MD [address] [place] [address] PCP - General Family Medicine 03/31/18 documented as of this encounter
--- OUTSIDE RECORDS SUMMARY | 2024-10-09 17:40 | XMS_ITS | Encounter Summary ---
Author Organization [employer] [facility] Address [address] [place] [address] 7t [place] [address] Care Team Providers Care Tea And Spice Supervisor Name Role Phone Ragini So MD Primary Care Provide r Encounter Details Date Type Department Care Team (Latest Contact Info) Description 10/08/2021 Abstract [facility] CONVERSIONS Dental, Provider, DDS Social History [...] Info) Description 11/21/2024 11:30 AM EDT Telemedicine [facility] MEDICINE 230 [place] [address] Ragini So MD 230 [place] [address] documented as of this encounter Visit Diagnoses Not on filedocumented in this encounter Care Teams Tea And Spice Supervisor Relationship Specialty Start Date End Date Ragini So MD 230 [place], [place] [phone] PCP - General Family Medicine 03/31/18 documented as of this encounter
--- OUTSIDE RECORDS SUMMARY | 2024-10-09 17:40 | XMS_ITS | Encounter Summary ---
Author Organization [employer] Address [address] [facility] 7t [place] [address] Care Team Providers Care Green Building Materials Designer Name Role Phone Ragini So MD Primary Care Provide r Encounter Details Date Type Department Care Team ([facility] st Contact Info) Description 05/23/2023 Orders Only [facility] MEDICINE 230 [place], [place] [phone] Ragini So MD 230 [place], [place] [phone] Hot flashes due to menopause (Primary Dx) [...] Info) Description 11/21/2024 11:30 AM EDT Telemedicine [facility] MEDICINE [address] [place] [address] [phone] Ragini So MD 230 [place] [address] documented as of this encounter Visit Diagnoses Diagnosis Hot flashes due to menopause- Primary documented in this encounter Additional Health Concerns Assessment Noted Time PHQ-9 Depression Total Score: 4 10/05/19 23 10:00 AM EDT documented as of this encounter Care Teams Green Building Materials Designer Relationship Specialty Start Date End Date Ragini So MD [address] [place] [address] PCP - General Family Medicine 03/31/18 documented as of this encounter
--- OUTSIDE RECORDS SUMMARY | 2024-10-09 17:40 | XMS_ITS | Encounter Summary ---
Author Organization [employer] Address [address] [facility] 7t [place] [address] Care Team Providers Care Medical Records Analyst Name Role Phone Ragini So MD Primary Care Provide r Encounter Details Date Type Department Care Team (Late st Contact Info) Description 07/27/2023 Abstract [facility] MEDICINE 230 [place], [place] [phone] Ragini So MD 230 [place], [place] [phone] Social History Tobacco Use Types Packs/Day Years [...] 11/21/2024 11:30 AM EDT Telemedicine [facility] MEDICINE [address] [place] [address] Ragini So MD [address] [place] [address] documented as of this encounter Visit Diagnoses Not on filedocumented in this encounter Additional Health Concerns Assessment Noted Time PHQ-9 Depression Total Score: 4 10/05/19 23 10:00 AM EDT documented as of this encounter Care Teams Medical Records Analyst Relationship Specialty Start Date End Date Ragini So MD [address] [place] [address] PCP - General Family Medicine 03/31/18 documented as of this encounter
--- OUTSIDE RECORDS SUMMARY | 2024-10-09 17:40 | XMS_ITS | Encounter Summary ---
Author Organization [employer] Address [address] [place] [address] 7t [place] [address] Care Team Providers Care Tubing Drier Name Role Phone Ragini So MD Primary Care Provide r Encounter Details Date Type Department Care Team ([facility] Contact Info) Description 09/03/2022 Abstract [facility] ADULT DENTAL [address] [place] [address] Janak Chao, DIETER [address] [place] [address] Social History Tobacco Use Types Packs/Day Years [...] Upcoming Encounters Date Type Department Care Team ([facility] Contact Info) Description 11/21/2024 11:30 AM EDT Telemedicine [facility] MEDICINE [address] [place] [address] Ragini So MD 230 [place], [place] [phone] documented as of this encounter Visit Diagnoses Not on filedocumented in this encounter Care Teams Tubing Drier Relationship Specialty Start Date End Date Ragini So MD [address] [place] [address] PCP - General Family Medicine 03/31/18 documented as of this encounter
--- OUTSIDE RECORDS SUMMARY | 2024-10-09 17:40 | XMS_ITS | Encounter Summary ---
Author Organization [employer] [facility] Address [address] [place] [address] 7t [place] [address] Care Team Providers Care Copy Director Name Role Phone Ragini So MD Primary Care Provide r Encounter Details Date Type Department Care Team (Late Contact Info) Description 07/07/2022 Abstract [facility] ADULT DENTAL [address] [place] [address] Janak Chao DMD [address] [place] [address] Social History Tobacco Use Types Packs/Day Years [...] Info) Description 11/21/2024 11:30 AM EDT Telemedicine [facility] MEDICINE [address] [place] [address] Ragini So MD [address] [place] [address] documented as of this encounter Visit Diagnoses Not on filedocumented in this encounter Care Teams Copy Director Relationship Specialty Start Date End Date Ragini So MD 230 [place] [address] PCP - General Family Medicine 03/31/18 documented as of this encounter
--- OUTSIDE RECORDS SUMMARY | 2024-10-09 17:40 | XMS_ITS | Clinical Summary ---
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 she keeps gaining weight I decided [...] Team Description 09/25/2024 1:00 PM EDT Telemedicine [facility] [address] [place] [phone] Ragini So MD Bilateral chronic knee pain (Primary Dx); Vaginal itching; Class 1 obesity due to excess calories with serious comorbidity and body mass index (BMI) of 30.0 to 30.9 in adult 09/19/2024 Refill [facility] [address] [place] [address] Ragini So MD Class 1 obesity due to excess calories with serious comorbidity and body mass index (BMI) of 30.0 to 30.9 in adult 08/24/2024 Travel 08/09/2024 Refill [facility] [address] [place] [address] Ragini So MD Anxiety from Last 3 [...] Info) Description 11/21/2024 11:30 AM EDT Telemedicine [facility] [address] [place] [phone] Ragini So MD [address] [place] [address] Health Maintenance Due Date Last Done Comments [...] 12:40 PM EDT) HIV AB/AG Nonreactive Nonreactive [facility] Comment:HIV-1 p24 Ag and/or HIV-1/HIV-2 Ab not detected.A test result that is nonreactive does not exclude thepossibility of exposure to or infection with HIV-1 and/orHIV-2. Nonreactive results in this assay for individualswith prior exposure to HIV-1 and/or HIV-2 may be due toantigen and antibody levels that are below the limit ofdetection of this assay.The Fandeavor HIV Ag/Ab Combo assay result andsupplemental assay results should be interpreted inconjunction with the patient's clinical presentation,history and other laboratory results. If the results areinconsistent with clinical evidence, additional testing issuggested to confirm the result. Blood Venous blood specimen / Unknown 01/19/2024 12:40 PM EDT 01/19/2024 1:03 PM EDT us Ragini Cline MD LAB BLOOD ORDERABLES Final Result [facility] [address] [place] [phone] * (ABNORMAL) Lipid Panel with Reflex to Direct LDL (01/19/2024 12:20 PM EDT) Triglycerides 95 <150 mg/dL [facility] Comment:Desirable Triglyceri de: less than 150 mg/dLBorderline High Triglyceride 150-199 mg/dLHigh Triglyceride: 200-499 mg/dLVery High Triglyceride: greater than or equal to 5OO mg/dL Cholesterol 177 <200 mg/dL [facility] Comment:Desirable Cholestero l: less than 200 mg/dLBorderline High Cholesterol: 200-239 mg/dLHigh Cholesterol: greater than 239 mg/dL LDL Cholesterol Calculated 104(H) <100 mg/dL [facility] Comment:Desirable LDL: less than 100 mg/dLNear Optimal/Above Optimal LDL: 110- 129 mg/dLBorderline High LDL: 130-159 mg/dLHigh LDL: 160-189 mg/dLVery High LDL: greater than or equal to 190 mg/dL HDL Cholesterol 54 >40 mg/dL [facility] Comment:Desirable HDL: great er than 40 mg/dL Note: This HDL assay may give artificially low results in patients with liver disease. Blood 01/19/2024 12:2 0 PM EDT 01/19/2024 1:03 PM EDT Ragini Cline MD LAB BLOOD ORDERABLES Final Result Performing Organization Address [facility] de Phone Number [facility] [address] [place] [phone] * Hepatitis C Viral RNA, Quantitative, Real-Time PCR (01/19/2024 12:20 PM EDT) Hepatitis C Viral Load <15 NOT DETECTED NOT DETECTED IU/mL [facility] HCV Log PCR <1.18 NOT DETECTED NOT DETECTED Log IU/mL [facility] Comment:For additional infor valery, please refer [email or web address].MediaScrape/faq/[email or web address](This link is being provided for informational/educational purposes only.)THIS TEST WAS PERFORMED AT:[facility] [place] [id number] BAY MD Blood 01/19/2024 12:2 0 PM EDT 01/19/2024 1:03 PM EDT Ragini Cline MD LAB BLOOD ORDERABLES Final Result Performing Organization Address [facility] de Phone Number [facility] [address] [place] [phone] * BI Mammogram Diagnostic Tomosynthesis Bilateral (08/09/2023 1:20 PM EST) Anatomical Region Laterality Modality Breast Bilateral Mammography 08/09/2023 1:20 PM EST Narrative 08/09/2023 2:18 PM EST ? [facility] ? [address] ?[place] [address] ? Mammography Report ? Signed ? Patient: Rome Younger,Allyssa ?MR#: [id number] ?? [id number] ? : 1970 ?Acct:[id number] ? Age/Sex: 53 / F ?ADM Date: 08/09/23 ? Loc: HO.MAMMO ? Attending Dr: Livia Macias BELT MAKER ? Ordering Physician: Livia Macias BELT MAKER ?Results: 1Negativ ?? e ? Date of Service: 08/09/23 ?Follow Up: 1 Year From Orig ?? inal Mammogram ? Procedure(s): MM tomosynthesis diagnostic BI ?? Accession Number(s): [id number] ? cc: Livia Macias NP; Janeen Wade [...] 1414 ? DD/ 1320 ? TD/TT: ? Funeral Location Manager: ? Procedure Note Donotuseinterpreter, Image - 08/09/2023 [facility] [address] [place], [place] [address] Mammography Report Signed Patient: Allyssa CastroMR#: [id number] : 1970Acct:[id number] Age/Sex: 53 / FADM Date: 08/09/23 Loc: HO.MAMMO Attending Dr: Livia Macias NP Ordering Physician: Livia Macias NPResults: 1Negativ e Date of Service: 08/09/23Follow Up: 1 Year From Orig inal Mammogram Procedure(s): MM tomosynthesis diagnostic BI Accession Number(s): [id number] cc: Livia Macias BELT MAKER; Janeen Wade MD EXAMINATION: MM DIAGNOSTIC DIGITAL [...] in OV> 08/09/23 1414 DD/ 1320 TD/TT: Funeral Location Manager: Livia Macias SPONSORSHIP MANAGER IMG BI PROCEDURES Final Result * Hm Colonoscopy (10/13/2020) Colonoscopy Normal Normal Narrative Abigail Braden - 10/13/2020 Repeat Colonoscopy in 10 years or earlier if clinically indicated see legacy note dated 10/13/2020 Historical Provider HEALTH MAINTENANCE Final Result from Last 3 Months or Most Recently Relevant to Health Maintenance Insurance [facility] CHAMPLIN INSURANCE C/O MEDATA Care Teams Scientific Software Developer Relationship Specialty Start Date End Date Ragini So MD [address] [place] [address] PCP - General Family Medicine 03/31/18
--- OUTSIDE RECORDS SUMMARY | 2024-10-09 17:40 | XMS_ITS | Encounter Summary ---
Author Organization [employer] [facility] Address [address] [place] [address] 7t [place] [address] Care Team Providers Care Extractor Loader And Unloader Name Role Phone Ragini So MD Primary Care Provide r Encounter Details Date Type Department Care Team (Latest Contact Info) Description 09/11/[address] [facility] CONVERSIONS Dental, Provider, DDS Social History Tobacco [...] Info) Description 11/21/2024 11:30 AM EDT Telemedicine [facility] [address] [place] [address] Ragini So MD [address] [place] [address] documented as of this encounter Visit Diagnoses Not on filedocumented in this encounter Care Teams Extractor Loader And Unloader Relationship Specialty Start Date End Date Ragini So MD [address] [place], [place] [phone] PCP - General Family Medicine 03/31/18 documented as of this encounter
--- OUTSIDE RECORDS SUMMARY | 2024-10-09 17:40 | XMS_ITS | Encounter Summary ---
Author Organization [employer] Address [address] [facility] 7t [place] [address] Care Team Providers Care Digital Commentator Name Role Phone Ragini So MD Primary Care Provide r Reason for Visit * Reason Comments Med Refill Encounter Details Date Type Department Care Team ([facility] st Contact Info) Description 04/03/2024 Refill [facility] [address] [place], [place] [phone] Ragini So MD [address] [place] [address] Social History Tobacco Use Types Packs/Day Years [...] Info) Description 11/21/2024 11:30 AM EDT Telemedicine [facility] [address] [place], [place] [phone] Ragini So MD [address] [place] [address] documented as of this encounter Visit Diagnoses Not on filedocumented in this encounter Additional Health Concerns Assessment Noted Time PHQ-9 Depression Total Score: 6 01/19/20 24 10:44 AM EDT documented as of this encounter Care Teams Digital Commentator Relationship Specialty Start Date End Date Ragini So MD [address] [place], [place] [phone] PCP - General Family Medicine 03/31/18 documented as of this encounter
--- OUTSIDE RECORDS SUMMARY | 2024-10-09 17:40 | XMS_ITS | Encounter Summary ---
Author Organization [employer] Address [address] [place] [address] 7t [place] [address] Care Team Providers Care Abrasive Mixer Name Role Phone Ragini So MD Primary Care Provide r Encounter Details Date Type Department Care Team ([facility] Contact Info) Description 09/03/2022 Abstract [facility] [address] [place] [address] Janak Chao, DIETER [address] [place] [address] Social History Tobacco Use Types Packs/Day Years [...] Upcoming Encounters Date Type Department Care Team ([facility] Contact Info) Description 11/21/2024 11:30 AM EDT Telemedicine [facility] [address] [place] [address] Ragini So MD [address] [place], [place] [phone] documented as of this encounter Visit Diagnoses Not on filedocumented in this encounter Care Teams Abrasive Mixer Relationship Specialty Start Date End Date Ragini So MD [address] [place] [phone] PCP - General Family Medicine 03/31/18 documented as of this encounter
--- OUTSIDE RECORDS SUMMARY | 2024-10-09 17:40 | XMS_ITS | Encounter Summary ---
Author Organization [employer] Address [address] [facility] 7t [place] [address] Care Team Providers Care Equipment Manager Name Role Phone Ragini So MD Primary Care Provide r Reason for Visit * Reason Onset Date Comments PA authorization 05/11/2023 Prior Authorization 05/11/2023 Venlafaxine XR Encounter Details Date Type Department Care Team (Late st Contact Info) Description 05/11/2023 Telephone [facility] [address] [place] [address] Ragini So MD [address] [place] [address] PA authorization; Prior Authorization (Venlafaxine XR ) [...] tablets. PCP Off * Telephone Encounter - Hariak Chi - 05/31/2023 1:40 PM EST Call [...] below. If any questions contact pt at [phone] (azeri speaker) * Telephone Encounter - Dalia Okeefe - 05/11/2023 3:06 PM EST Tc from pt requesting PA authorization for venlafaxine XR (Effexor XR) 37.5 MG 24 hr tablet. documented in this encounter Plan of Treatment Upcoming Encounters Date Type Department Care Team (Late st Contact Info) Description 11/21/2024 11:30 AM EDT Telemedicine [facility] [address] [place] [address] Ragini So MD [address] [place] [address] documented as of this encounter Visit Diagnoses Diagnosis Menopausal symptom documented in this encounter Additional Health Concerns Assessment Noted Time PHQ-9 Depression Total Score: 4 10/05/19 23 10:00 AM EDT documented as of this encounter Care Teams Equipment Manager Relationship Specialty Start Date End Date Ragini So MD [address] [place] [address] PCP - General Family Medicine 03/31/18 documented as of this encounter
== END 2024-10-08 14:31 | disposition home or self-care (01) ==
LOC: HO.HOSX 14:30
PROVIDERS: Visit Provider Physician Assistant
DX: M17.0 Bilateral primary osteoarthritis of knee (principal); M25.561 Pain in right knee; M25.562 Pain in left knee
CPT/HCPCS: 20610; 73562; 99202; J1010; J2003

== ENCOUNTER 2025-02-14 14:30 | Outpatient (AMB) | payer OTHER, SELFPAY ==
--- NOTE | 2025-02-14 14:31 | A.OFFVIS_ITS ---
Vital Signs 02/14/25 14:37 Height 5 ft 1 in Weight 147 lb 6 oz BMI 27.8 Intake Visit Reasons: BILATERAL PRIMARY OA OF KNEES Welding Technician Required: Yes Welding Technician Language: Dowel Pin Man Services: Welding Technician Present Welding Technician Name: Ragini #[id number] Accompanied by: Self / Same As Patient Allergies No Known Allergies (No Known Allergies*) Allergy (Verified 02/14/25 14:40) HPI Comments Details: The patient is a 54-year-old female presenting with knee pain due to osteoarthritis. The knee pain is primarily located in the right knee, although both knees are affected. The pain is described as stabbing, aching, and is accompanied by a sensation of heaviness and tightness. The pain is constant, with a severity of 8/10 at midday and 6/10 in the morning. In October, the patient received a cortisone injection in the Orthopedic office, which provided relief for about a month. She did not follow up with Orthopedics after the initial injection. Patient reports taking gabapentin with partial relief. The patient has a history of fibromyalgia, which contributes to widespread pain, including in the shoulders, hands, feet, and neck. She also experiences neuropathy in both feet. - Onset and Timing: Pain is worse midday with a severity of 8/10, improving slightly in the morning to 6/10. - Quality and Character: Pain is described as stabbing, aching, with heaviness and tightness. - Location: Primarily affects the right knee, but both knees are involved. - Exacerbating Factors: Pain worsens as the day progresses; walking, bending, climbing stairs - Relieving Factors: Cortisone injection provided temporary relief; heat, gabapentin, knee bracing - Affect: Pain impacts multiple areas including knees, shoulders, hands, feet, and neck. - Analgesia: Currently using gabapentin for pain control. - Activities of Daily Living: Pain is constant and affects daily activities. 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 - Neurological: Reports neuropathy in both feet. All systems reviewed & are unremarkable except as noted in HPI and below Physical Exam Vital Signs: BMI result Body Mass Index 27.8 General: Appears afebrile. Alert and oriented. Mood and affect appropriate. Follows and participates in conversation appropriately. Respiratory effort is unlabored. No cough. Able to transition from sit to stand unassisted. Ambulates with bilaterally normal heel strike and toe off. Extrem General: Yes capillary refill normal, Yes no clubbing, cyanosis or edema and Yes no calf tenderness Right lower extremity: knee Details: normal to inspection, tenderness Location: of the patella, of the medial joint line and of the lateral joint line, swelling Location: of the distal upper leg, normal ROM and crepitus; no ecchymosis, no deformity and no unusual warmth Left lower extremity: knee Details: normal to inspection, tenderness Location: of the medial joint line and of the lateral joint line, swelling Location: of the distal upper leg, normal ROM and crepitus; no ecchymosis, no deformity and no unusual warmth Results Reviewed Results Reviewed: XR KNEE, RIGHT XR KNEE, LEFT 10/08/24 CLINICAL INFORMATION: M25.569 - Pain in unspecified knee COMPARISON: None available. TECHNIQUE: Three views of each knee. FINDINGS: Right Knee: No fracture, dislocation, or suspicious bone lesion. Normal alignment. Mild medial, lateral, and more significant patellofemoral degenerative arthritis. There is lateral patellar tilt. No evidence of joint effusion. Normal soft tissues. Left Knee: No fracture, dislocation, or suspicious bone lesion. Normal alignment. Mild medial, lateral, and more significant patellofemoral degenerative arthritis. No evidence of joint effusion. Normal soft tissues. IMPRESSION: 1. Bilateral medial and lateral compartment mild osteoarthrosis, with more significant arthrosis in the patellofemoral joints, right greater than left. 2. No evidence of joint effusion. Assessment & Plan Assessment & Plan (1) Osteoarthritis of knees, bilateral: Code(s): M17.0 - Bilateral primary osteoarthritis of knee Category: Medical (2) Bilateral knee pain: Code(s): M25.561 - Pain in right knee; M25.562 - Pain in left knee Category: Medical (3) Fibromyalgia: Code(s): M79.7 - Fibromyalgia Category: Medical Plan The plan involves scheduling the patient for a bilateral diagnostic genicular nerve blocks with local and fluoroscopy to assess eligibility for radiofrequency ablation, which could provide long-term pain relief. We also discussed Sprint PNS trial, repeating cortisone injections, and gel injections. Informational pamphlets provided to patient. Expectations, risks and benefits were reviewed. Patient is aware she will be contacted to schedule this procedure. All questions and concerns have been answered and patient agreed with the treatment plan. Follow up after injections and sooner as needed. Patient was informed and verbally consented to the use of an ambient scribe for clinic note documentation during this visit. Patient Instructions: - Monitor pain levels after the knee injections and report any changes. - Follow up with the clinic after the diagnostic injection to discuss further treatment options. Coding Level of Care Code New Pt Level 4 (12752) Diagnoses Osteoarthritis of knees, bilateral M17.0 Bilateral knee pain M25.561; M25.562 Fibromyalgia M79.7
[2025-02-14 14:37] VITALS: BMI 27.8
--- OUTSIDE RECORDS SUMMARY | 2025-02-14 15:11 | XMS_ITS | Encounter Summary ---
Author Organization [employer] Address [address] [facility] 7t [place] [address] Care Team Providers Care Senior Business Intelligence Analyst Name Role Phone Ragini So MD Primary Care Provide r Reason for Visit * Reason Comments Med Refill Encounter Details Date Type Department Care Team ([facility] st Contact Info) Description 04/03/2024 Refill [facility] [address] [place], [place] [phone] Ragini So MD [address] [place] [address] Social History Tobacco Use Types Packs/Day Years [...] as of this encounter Plan of Treatment Not on file documented as of this encounter Visit Diagnoses Not on filedocumented in this encounter Additional Health Concerns Assessment Noted Time PHQ-9 Depression Total Score: 6 01/19/20 24 10:44 AM EDT documented as of this encounter Care Teams Senior Business Intelligence Analyst Relationship Specialty Start Date End Date Ragini So MD [address] [place] [address] PCP - General Family Medicine 03/31/18 documented as of this encounter
== END 2025-02-14 14:59 | disposition home or self-care (01) ==
LOC: HO.PMC 14:30
PROVIDERS: Visit Provider Nurse Practitioner Family
DX: M17.0 Bilateral primary osteoarthritis of knee (principal); M25.561 Pain in right knee; M25.562 Pain in left knee; M79.7 Fibromyalgia
CPT/HCPCS: 99204

== ENCOUNTER → 2025-02-14 14:30 | Outpatient (BNVA) | payer OTHER, SELFPAY | PROVIDERS: Visit Provider Nurse Practitioner Family | DX: M17.0 Bilateral primary osteoarthritis of knee (principal); M25.561 Pain in right knee; M25.562 Pain in left knee; M79.7 Fibromyalgia | CPT/HCPCS: 99202 ==

== ENCOUNTER 2025-02-26 11:16 | Outpatient (REF) | payer OTHER, SELFPAY ==
[2025-02-26 11:27] LABS: MANUAL DIFF FLAG NO
--- OUTSIDE RECORDS SUMMARY | 2025-02-26 12:11 | XMS_ITS | Encounter Summary ---
Author Organization [employer] Address [address] [facility] 7t [place] [address] Care Team Providers Care Decision Support Manager Name Role Phone Ragini So MD Primary Care Provide r Encounter Details Date Type Department Care Team (Latest Contact Info) Description 09/11/2020 Abstract C CONVERSIONS Dental, Provider, DDS Social History Tobacco [...] on filedocumented in this encounter Care Teams Decision Support Manager Relationship Specialty Start Date End Date Ragini So MD [address] [place] [phone] PCP - General Family Medicine 03/31/18 documented as of this encounter
--- OUTSIDE RECORDS SUMMARY | 2025-02-26 12:11 | XMS_ITS | Encounter Summary ---
Author Organization [employer] Address [address] [facility] 7t [place] [address] Care Team Providers Care Long Chain Dyeing Machine Operator Name Role Phone Ragini So MD Primary Care Provide r Encounter Details Date Type Department Care Team ([facility] st Contact Info) Description 05/23/2023 Orders Only [facility] MEDICINE [address] [place], [place] [phone] Ragini So MD [address] [place], [place] [phone] Hot flashes due to menopause (Primary Dx) [...] is your housing situation today? I have atmra perez 04/22/[address] you [...] documented as of this encounter Care Teams Long Chain Dyeing Machine Operator Relationship Specialty Start Date End Date Ragini So MD [address] [place] [phone] PCP - General Family Medicine 03/31/18 documented as of this encounter
--- OUTSIDE RECORDS SUMMARY | 2025-02-26 12:11 | XMS_ITS | Encounter Summary ---
Author Organization [employer] Address [address] [facility] 7t [place] [address] Care Team Providers Care Hat Presser Name Role Phone Ragini So MD Primary Care Provide r Encounter Details Date Type Department Care Team (Late st Contact Info) Description 06/24/2022 Abstract [facility] ADULT [facility] [address] [place], [place] [phone] Uriel Alberts DDS [address] [place] [address] Social History Tobacco Use Types Packs/Day Years [...] on filedocumented in this encounter Care Teams Hat Presser Relationship Specialty Start Date End Date Ragini So MD [address] [place] [address] PCP - General Family Medicine 03/31/18 documented as of this encounter
--- OUTSIDE RECORDS SUMMARY | 2025-02-26 12:11 | XMS_ITS | Encounter Summary ---
Author Organization [employer] Address [address] [facility] 7t [place] [address] Care Team Providers Care Reinforcing Steel Placer Name Role Phone Ragini So MD Primary Care Provide r Encounter Details Date Type Department Care Team (Latest Contact Info) Description 10/08/2021 Abstract C CONVERSIONS Dental, Provider, DDS Social [...] on filedocumented in this encounter Care Teams Reinforcing Steel Placer Relationship Specialty Start Date End Date Ragini So MD [address] [place] [phone] PCP - General Family Medicine 03/31/18 documented as of this encounter
--- OUTSIDE RECORDS SUMMARY | 2025-02-26 12:11 | XMS_ITS | Encounter Summary ---
Author Organization [employer] Address [address] [facility] 7t [place] [address] Care Team Providers Care Bilingual Speech Language Pathologist Name Role Phone Ragini So MD Primary Care Provide r Encounter Details Date Type Department Care Team (Latest Contact Info) Description 06/06/2019 Abstract [facility] CONVERSIONS Dental, Provider, DDS Social History [...] on filedocumented in this encounter Care Teams Bilingual Speech Language Pathologist Relationship Specialty Start Date End Date Ragini oS MD [address] [place] [phone] PCP - General Family Medicine 03/31/18 documented as of this encounter
--- OUTSIDE RECORDS SUMMARY | 2025-02-26 12:11 | XMS_ITS | Encounter Summary ---
Author Organization [employer] Address [address] [facility] 7t [place] [address] Care Team Providers Care Transitional Studies Instructor Name Role Phone Ragini So MD Primary Care Provide r Encounter Details Date Type Department Care Team ([facility] st Contact Info) Description 09/03/2022 Abstract [facility] ADULT DENTAL [address] [place] [address] Janak Chao, DIETER [address] [place] [address] Social History Tobacco Use Types Packs/Day Years [...] on filedocumented in this encounter Care Teams Transitional Studies Instructor Relationship Specialty Start Date End Date Ragini So MD [address] [place] [address] PCP - General Family Medicine 03/31/18 documented as of this encounter
--- OUTSIDE RECORDS SUMMARY | 2025-02-26 12:11 | XMS_ITS | Encounter Summary ---
Author Organization [employer] Address [address] [facility] 7t [place] [address] Care Team Providers Care Commissioned Police Officer Name Role Phone Ragini So MD Primary Care Provide r Encounter Details Date Type Department Care Team (Late st Contact Info) Description 07/07/2022 Abstract [facility] ADULT DENTAL [address] [place] [address] Janak Chao, DIETER [address] [place] [address] Social History Tobacco Use Types Packs/Day Years [...] on filedocumented in this encounter Care Teams Commissioned Police Officer Relationship Specialty Start Date End Date Ragini So MD [address] [place] [address] PCP - General Family Medicine 03/31/18 documented as of this encounter
--- OUTSIDE RECORDS SUMMARY | 2025-02-26 12:11 | XMS_ITS | Clinical Summary ---
Author Organization [employer] Address [address] [place] [address] 7[address] [place] [address] Care Team Providers Care Sporting Goods Sales Associate Name Role Phone Ragini So MD Primary Care Provide r Allergies No known active allergies Medications diphenhydrAMI NE (Benadryl Allergy) 25 MG tablet Take 2 tablets by mouth every 4 (four) hours. 09/17/19 21 Active fluticasone (Flonase Allergy Relief) 50 MCG/ACT nasal spray Administer 2 sprays into affected nostril(s) at bed time. 01/09/20 19 Active hydrocortison e 2.5 % cream Apply topically every 12 (twelve) hours. 01/13/20 22 Active traZODone (Desyrel) 50 MG tablet Take 1 tablet by mouth at bed time. 11/27/19 22 Active LORazepam (Ativan) 1 MG tabletIndicat ions:Anxiety TAKE 1 TABLET BY MOUTH AT BEDTIME 28 tablet 05/31/20 23 Active albuterol 108 (90 Base) MCG/ACT inhaler Inhale 2 puffs every 4 (four) hours if needed for wheezing or shortness of breath. 18 g 06/29/20 23 Active loratadine-ps eudoephedrine ER (Claritin-D 24-hour) 10-240 MG 24 hr tabletIndicat ions:Cough in adult Take 1 tablet by mouth in the morning for 7 days. 7 tablet 06/29/20 23 Active Diclofenac Sodium 1 % gelIndication s:Left wrist pain,Neuropat hic pain APPLY 2 GRAMS TOPICALLY THREE TIMES DAILY TO AFFECTED AREA(S) 100 g 2 04/13/20 24 Active gabapentin (Neurontin) 400 MG capsuleIndica tions:Neuropa thic pain Take 1 capsule (400 mg) by mouth 3 times daily. 90 capsule 04/13/20 24 Active levocetirizin e (Xyzal) 5 MG tablet TAKE 1 TABLET BY MOUTH EVERY EVENING 90 tablet 1 01/02/20 25 Active D3 Super Strength 50 MCG (1999 UT) capsuleIndica tions:Vitamin D deficiency TAKE 1 CAPSULE BY MOUTH EVERY DAY 90 capsule 1 01/16/20 25 Active Tirzepatide-W eight Management (Zepbound) 10 MG/0.5ML solution auto-injector Indications:B HI 27.0-27.9,ravin lt Inject 0.5 mL (10 mg) under the skin 1 (one) time per week. INJECT ONE PEN (=10 MG) SUBCUTANEOUSLY ONCE A WEEK 2 mL 3 01/22/20 25 Active citalopram (CeleXA) 20 MG tabletIndicat ions:Anxiety TAKE 1 TABLET BY MOUTH EVERY DAY 90 tablet 1 02/14/20 25 Active citalopram (CeleXA) 20 MG tabletIndicat ions:Anxiety TAKE 1 TABLET BY MOUTH EVERY DAY 90 tablet 1 08/09/19 25 2024 Discontinued Active Problems Problem Noted Date Diagnosed Date BMI 27.0-27.9,adult 01/21/2025 Assessment & Plan (01/21/2025 4:21 PM EDT): Today extensive discussion was done about life style modifications I advise healthy diet (low calorie) and cardiovascular exercise Bilateral primary osteoarthritis of knee 025 Assessment & Plan (11/21/2024 11:52 AM EDT): I prescribed for patient acetaminophen to be taken as needed Continue to follow-up with orthopedics Bilateral chronic knee pain 09/25/2024 Assessment & [...] 30.9 in adult 05/21/2024 Assessment & Plan (11/21/2024 11:53 AM EDT): Extensive counseling about healthy diet and exercise done today I am going up on dose of Zepbound to 7.5 mg weekly Next appointment will be in person to weigh her in office Assessment & Plan (09/25/2024 1:33 PM EDT): [...] for 3 years, 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 I decided to start her on phentermine and topiramate UTI symptoms 01/19/2024 Bilateral wrist pain 01/19/2024 Assessment & Plan (01/19/2024 11:25 AM EDT): Continue to follow with specialist Fibromyalgia 01/19/2024 Assessment & Plan (01/21/2025 4:20 PM EDT): Patient was educated about multidisciplinary approach for her condition, it was advise cardiovascular exercise, maintain hydration, treat anxiety/depression and take medications as directed Assessment & Plan (05/21/2024 4:32 PM EST): [...] Encounters Date Type Department Care Team Description 02/12/2025 Refill [facility] [address] [place], [place] [phone] Ragini So MD Anxiety 01/21/2025 3:30 PM EDT Office Visit [facility] [address] [place], [place] [phone] Ragini So MD Bilateral primary osteoarthritis of knee; Fibromyalgia; BMI 27.0-27.9,adult 01/21/2025 Travel 01/18/2025 Telephone [facility] [address] [place] [address] Ragini So MD Chart Prep 01/15/2025 Refill [facility] [address] [place] [address] Ragini So MD Vitamin D deficiency 01/14/2025 Travel 01/01/2025 Refill [facility] [address] [place] [address] Ragini So MD 12/17/2024 Refill [facility] [address] [place], [place] [phone] Ragini So MD Class 1 obesity without serious comorbidity with body mass index (BMI) of 30.0 to 30.9 in adult, unspecified obesity type from Last 3 Months Immunizations Immunization Administration Dates Next Due Influenza Injectable Quadriv [...] Answer Date Recorded Patient Health Questionnaire-9 Score 0 01/21/2025 Patient Health Questionnaire-9 Score 0 01/21/2025 Last PHQ-9: Questionnaire Data Not on file 0 01/21/2025 Housing Stability Answer Date Recorded What is your housing situation today? I have tamra perez 01/21/[address] you li ve. Do you have problems with any of the following? None of the above 01/21/2025 Food Insecurity Answer Date Recorded Within the past 12 months, y ou worried that your food would run out before you got money to buy more: Never True 01/21/2025 Within the past 12 months,th e food you bought just didn't last and you didn't have enough money to get more: Never True Transportation Answer Date Recorded In the past 12 months, has l ack of transportation kept you from medical appts, meetings, work or from getting things needed for daily living? No 01/21/2025 Utilities Answer Date Recorded In the past 12 months, has t he electric, gas, oil or water company threatened to shut off services in your home? No 01/21/2025 Depression Answer Date Recorded Patient Health Questionnaire-2 Score 0 01/21/2025 Internet Access Answer Date Recorded Internet Access Q1 Yes 01/21/2025 Internet Access Q2 Not on file 01/21/2025 Comments Unknown Sex and Gender Information Value Date Recorded Sex Assigned at Female 05/03/2022 10:34 AM EDT Legal Sex Female 10:34 AM EDT Gender Identity Female 05/03/2022 10:34 AM EDT Sexual Orientation Straight 05/03/2022 10 :34 AM EDT Last Filed Vital Signs Vital Sign Reading Time Taken Comments Blood Pressure 100/70 01/21/2025 3:05 PM EDT Pulse 68 01/21/2025 3:05 PM EDT Temperature 36.4 C (97.6 F) 01/21/2025 3:05 PM EDT Respiratory Rate 14 01/21/2025 3:05 PM EDT Oxygen Saturation 98% 01/19/2024 10:43 AM EDT Inhaled Oxygen Concentration - - Weight 66.2 kg (146 lb) 01/21/2025 3:05 PM EDT Height 154.9 cm (5' 1 ) 01/21/2025 3:05 PM EDT Body Mass Index 27.59 01/21/2025 3:05 PM EDT Plan of Treatment Health Maintenance Due Date Last Done Comments [...] Vaccine ( season) 2024 06/08/2022, 10/08/2020, 07/23/2020 Mammogram 08/09/2024 08/09/2023, 0212/2023, 11/08/2022, Additional history exists Influenza Vaccine (#1) 2025 , 04/23/2020, 03/20/2019, Additional history exists Dental X-Ray: Full Mouth 06/15/2025 06/14/2022 Alcohol/Substance Use Screening 01/21/2026 01/21/2025 Depression Screening 01/21/2026 01/21/2025, 01/22/20 25 Disability Screening 01/21/2026 01/21/2025 SDOH Screening 01/21/2026 01/21/2025 Tobacco Screening 01/21/2026 01/21/2025 DTaP/Tdap/Td Vaccines (2 - Td or Tdap) 04/10/2028 04/10/2018 Lipid Panel 01/18/2029 01/19/2024, 04/0 09/2022, 10/20/2021, Additional history exists Colonoscopy 10/13/2030 [...] patient's age to complete this topic Meningococcal B Vaccine Aged Out No l onger eligible based on patient's age to complete [...] 12:40 PM EDT) HIV AB/AG Nonreactive Nonreactive [facility] Comment:HIV-1 p24 Ag and/or HIV-1/HIV-2 Ab not detected.A test result that is nonreactive does not exclude thepossibility of exposure to or infection with HIV-1 and/orHIV-2. Nonreactive results in this assay for individualswith prior exposure to HIV-1 and/or HIV-2 may be due toantigen and antibody levels that are below the limit ofdetection of this assay.The [employer] HIV Ag/Ab Combo assay result andsupplemental assay results should be interpreted inconjunction with the patient's clinical presentation,history and other laboratory results. If the results areinconsistent with clinical evidence, additional testing issuggested to confirm the result. Blood Venous blood specimen / Unknown 01/19/2024 12:40 PM EDT 01/19/2024 1:03 PM EDT us Ragini Cline MD LAB BLOOD ORDERABLES Final Result [facility] [address] [place] [address] [phone] * (ABNORMAL) Lipid Panel with Reflex to Direct LDL (01/19/2024 12:20 PM EDT) Triglycerides 95 <150 mg/dL [facility] Comment:Desirable Triglyceri de: less than 150 mg/dLBorderline High Triglyceride 150-199 mg/dLHigh Triglyceride: 200-499 mg/dLVery High Triglyceride: greater than or equal to 5OO mg/dL Cholesterol 177 <200 mg/dL [facility] Comment:Desirable Cholestero l: less than 200 mg/dLBorderline High Cholesterol: 200-239 mg/dLHigh Cholesterol: greater than 239 mg/dL LDL Cholesterol Calculated 104(H) <100 mg/dL [facility] Comment:Desirable LDL: less than 100 mg/dLNear Optimal/Above Optimal LDL: 110- 129 mg/dLBorderline High LDL: 130-159 mg/dLHigh LDL: 160-189 mg/dLVery High LDL: greater than or equal to 190 mg/dL HDL Cholesterol 54 >40 mg/dL [facility] Comment:Desirable HDL: great er than 40 mg/dL Note: This HDL assay may give artificially low results in patients with liver disease. Blood 01/19/2024 12:2 0 PM EDT 01/19/2024 1:03 PM EDT Ragini Cline MD LAB BLOOD ORDERABLES Final Result Performing Organization Address [facility] Co de Phone Number [facility] [address] [place] [phone] * Hepatitis C Viral RNA, Quantitative, Real-Time PCR (01/19/2024 12:20 PM EDT) Hepatitis C Viral Load <15 NOT DETECTED NOT DETECTED IU/mL [facility] HCV Log PCR <1.18 NOT DETECTED NOT DETECTED Log IU/mL [facility] Comment:For additional infor valery, please refer tohttp://education.[employer]/faq/HVC81m7(This link is being provided for informational/educational purposes only.)THIS TEST WAS PERFORMED AT:[facility] [place] [phone] BAY MD Blood 01/19/2024 12:2 0 PM EDT 01/19/2024 1:03 PM EDT Ragini Cline MD LAB BLOOD ORDERABLES Final Result Performing Organization Address [facility] de Phone Number [facility] [address] [place] [phone] * BI Mammogram Diagnostic Tomosynthesis Bilateral (08/09/2023 1:20 PM EST) Anatomical Region Laterality Modality Breast Bilateral Mammography 08/09/2023 1:20 PM EST Narrative 08/09/2023 2:18 PM EST [facility] [address] [place] [address] Mammography Report Signed Patient: Allyssa Castro MR#: [id number] : 1970 Acct:[id number] Age/Sex: 53 / F ADM Date: 08/09/23 Loc: HO.MAMMO Attending Dr: Livia Macias NP Ordering Physician: Livia Macias NP Results: 1Negativ e Date of Service: 08/09/23 Follow Up: 1 Year From Orig ina Mammogram Procedure(s): MM tomosynthesis diagnostic BI Accession Number(s): [id number] cc: Livia Macias NP; Janeen Wade MD EXAMINATION: MM DIAGNOSTIC DIGITAL [...] in OV> 08/09/23 1414 DD/ 1320 TD/TT: Clinical Research Analyst: Procedure Note Donotuseinterpreter, Image - 08/09/2023 [facility] [address] [place], [place] [address] Mammography Report Signed Patient: Allyssa Castro#: [id number] : 1970Acct:[id number] Age/Sex: 53 / FADM Date: 08/09/23 Loc: HO.MAMMO Attending Dr: Livia Macias NP Ordering Physician: Livia Macias NPResults: 1Negativ e Date of Service: 08/09/23Follow Up: 1 Year From Orig ina Mammogram Procedure(s): MM tomosynthesis diagnostic BI Accession Number(s): [id number] cc: Livia Macias REGISTERED DIETICIAN; Janeen Wade MD EXAMINATION: MM DIAGNOSTIC DIGITAL [...] in OV> 08/09/23 1414 DD/ 1320 TD/TT: Clinical Research Analyst: us Livia Macias MICROPHONE OPERATOR IMG BI PROCEDURES Final Result * Hm Colonoscopy (10/13/2020) Colonoscopy Normal Normal Narrative Abigail Braden - 10/13/2020 Repeat Colonoscopy in 10 years or earlier if clinically indicated see legacy note dated 10/13/2020 Historical Provider HEALTH MAINTENANCE Final Result from Last 3 Months or Most Recently Relevant to Health Maintenance Insurance [facility] < [address] [facility] [employer] C/O MEDATA LAYNE SCHWAB [id number] Care Teams Sporting Goods Sales Associate Relationship Specialty Start Date End Date Ragini So MD [address] [place] [address] PCP - General Family Medicine 03/31/18
--- OUTSIDE RECORDS SUMMARY | 2025-02-26 12:11 | XMS_ITS | Encounter Summary ---
Author Organization [employer] Address [address] [place] [address] Care Team Providers Care Wharf Builder Name Role Phone Ragini So MD Primary Care Provide r Reason for Visit * Reason Comments Med Refill Encounter Details Date Type Department Care Team ([facility] st Contact Info) Description 05/30/2023 Refill [facility] [address] [place], [place] [phone] Ragini So MD [address] [place] [address] Anxiety Social History Tobacco Use Types Packs/Day [...] documented as of this encounter Care Teams Wharf Builder Relationship Specialty Start Date End Date Ragini So MD [address] [place] [address] PCP - General Family Medicine 03/31/18 documented as of this encounter
--- OUTSIDE RECORDS SUMMARY | 2025-02-26 12:11 | XMS_ITS | Encounter Summary ---
Author Organization [employer] Address [address] [facility] 7t [place] [address] Care Team Providers Care Automation Test Developer Name Role Phone Ragini So MD Primary Care Provide r Reason for Visit * Reason Comments Med Refill Encounter Details Date Type Department Care Team ([facility] st Contact Info) Description 04/03/2024 Refill [facility] [address] [place], [place] [phone] Ragini So MD [address] [place] [address] Social History Tobacco Use Types Packs/Day Years [...] documented as of this encounter Care Teams Automation Test Developer Relationship Specialty Start Date End Date Ragini So MD [address] [place] [address] PCP - General Family Medicine 03/31/18 documented as of this encounter
--- OUTSIDE RECORDS SUMMARY | 2025-02-26 12:11 | XMS_ITS | Encounter Summary ---
Author Organization [employer] Address [address] [facility] 7t [place] [address] Care Team Providers Care Weatherization Director Name Role Phone Ragini So MD Primary Care Provide r Encounter Details Date Type Department Care Team ([facility] st Contact Info) Description 07/27/2023 Abstract [facility] [address] [place], [place] [phone] Ragini So MD [address] [place], [place] [phone] Social History Tobacco Use Types Packs/Day Years [...] documented as of this encounter Care Teams Weatherization Director Relationship Specialty Start Date End Date Ragini So MD [address] [place] [address] PCP - General Family Medicine 03/31/18 documented as of this encounter
--- OUTSIDE RECORDS SUMMARY | 2025-02-26 12:11 | XMS_ITS | Encounter Summary ---
Author Organization [employer] Address [address] [facility] 7t [place] [address] Care Team Providers Care Shift Engineer Name Role Phone Ragini So MD Primary Care Provide r Reason for Visit * Reason Onset Date Comments PA authorization 05/11/2023 Prior Authorization 05/11/2023 Venlafaxine XR Encounter Details Date Type Department Care Team ([facility] st Contact Info) Description 05/11/2023 Telephone [facility] [address] [place] [address] Ragini So MD [address] [place] [address] PA authorization; Prior Authorization (Venlafaxine XR ) [...] below. If any questions contact pt at [phone] (american speaker) * Telephone Encounter - Dalia Okeefe - 05/11/2023 3:06 PM EST Tc from pt requesting PA authorization for venlafaxine XR (Effexor XR) 37.5 MG 24 hr tablet. documented in this encounter Plan of Treatment Not on file documented as of this encounter Visit Diagnoses Diagnosis Menopausal symptom documented in this encounter Additional Health Concerns Assessment Noted Time PHQ-9 Depression Total Score: 4 10/05/19 23 10:00 AM EDT documented as of this encounter Care Teams Shift Engineer Relationship Specialty Start Date End Date Ragini So MD [address] [facility] [place] [address] PCP - General Family Medicine 03/31/18 documented as of this encounter
--- OUTSIDE RECORDS SUMMARY | 2025-02-26 12:11 | XMS_ITS | Encounter Summary ---
Author Organization [employer] Address [address] [facility] 7t [place] [address] Care Team Providers Care Citizen Participation Specialist Name Role Phone Ragini So MD Primary Care Provide r Encounter Details Date Type Department Care Team ([facility] st Contact Info) Description 09/03/2022 Abstract [facility] [address] [place] [address] Janak Chao, DIETER [address] [place] [address] Social History Tobacco Use Types Packs/Day Years [...] on filedocumented in this encounter Care Teams Citizen Participation Specialist Relationship Specialty Start Date End Date Ragini So MD [address] [place] [address] PCP - General Family Medicine 03/31/18 documented as of this encounter
--- OUTSIDE RECORDS SUMMARY | 2025-02-26 12:11 | XMS_ITS | Encounter Summary ---
Author Organization [employer] Address [address] [facility] 7t [place] [address] Care Team Providers Care Pot Room Supervisor Name Role Phone Ragini So MD Primary Care Provide r Reason for Visit * Reason Onset Date Comments Medication Question 06/21/2024 Encounter Details Date Type Department Care Team ([facility] Contact Info) Description 06/21/2024 Telephone [facility] [address] [place], [place] [phone] Ragini So MD [address] [place] [address] Medication Question Social History Tobacco Use Types [...] call back for another medication. Please contact: [phone] (Czech) documented in this encounter Plan of Treatment Not on file documented as of this encounter Visit Diagnoses Not on filedocumented in this encounter Additional Health Concerns Assessment Noted Time PHQ-9 Depression Total Score: 6 01/19/20 24 10:44 AM EDT documented as of this encounter Care Teams Pot Room Supervisor Relationship Specialty Start Date End Date Ragini So MD [address] [place] [address] PCP - General Family Medicine 03/31/18 documented as of this encounter
[2025-02-26 12:44] LABS: Hematocrit 34.6 % (37.0-47.0); Hemoglobin 12.1 g/dl (12.0-16.0); Imm Gran Abs Auto 0.02 X10*3/uL (0.00-0.03); Imm Gran Pct Auto 0.3 % (0.0-0.4); Lymphocytes Absolute Auto 2.1 X10*3/uL (1.2-4.9); Mean Corpuscular HGB Conc 35.0 g/dl (31.0-35.0); Mean Corpuscular Hemoglobin 28.6 pg (27.0-33.0); Mean Corpuscular Volume 81.8 fL (80.0-98.0); NRBC Abs Auto 0.000 X10*3/uL (0.0-0.012); NRBC Pct Auto 0.0 /100WBC (0.0-0.2); Platelet Count 276 X10*3/uL (160-400); Red Blood Count 4.23 X10*6/uL (4.20-5.50); White Blood Count 6.9 X10*3/uL (4.8-10.8)
[2025-02-26 12:49] LABS: Hemoglobin A1C 100.9236 umol/L; Total Hemoglobin (HGBA1C) 3197.1320 umol/L
[2025-02-26 13:20] LABS: Alanine Aminotransferase 19 U/L (0-31); Albumin Level 4.4 g/dL (3.5-5.0); Alkaline Phosphatase 78 U/L (39-117); Anion Gap 9 (12-20); Aspartate Amino Transferase 29 U/L (5-31); Blood Urea Nitrogen 9 mg/dL (9-16); Calcium 9.1 mg/dL (8.4-10.2); Carbon Dioxide 28 mmol/L (22-29); Chloride 104 mmol/L (96-108); Cholesterol 172 mg/dL (<200); Estimated Glomerular Filt Rate > 60; HDL Cholesterol 55 mg/dL (>40); Potassium 4.3 mmol/L (3.3-5.1); Sodium 137 mmol/L (135-145); Total Protein 7.0 g/dL (6.5-8.0); Triglycerides 84 mg/dL (<150)
[2025-02-26 13:27] LABS: HIV Num 1 0.05 S/CO (0.00-0.99); ~HepC Num1 0.10 S/CO (0.00-0.79); ~Hepatitis C Antibody Nonreactive (Nonreactive)
== END 2025-02-26 11:17 | disposition home or self-care (01) ==
LOC: HO.LAB 11:16
PROVIDERS: PCP Internal Medicine; Visit Provider Internal Medicine
DX: M79.7 Fibromyalgia (principal); E66.811 Obesity, class 1; Z68.30 Body mass index [BMI] 30.0-30.9, adult; Z11.59 Encounter for screening for other viral diseases; Z11.4 Encounter for screening for human immunodeficiency virus [HIV]; Z13.1 Encounter for screening for diabetes mellitus
CPT/HCPCS: 36415; 80053; 80061; 82306; 83036; 84443; 85025; 86803; 87389

== ENCOUNTER 2025-04-02 07:42 | Outpatient (REF) | payer OTHER, SELFPAY ==
--- NOTE | ~2025-04-02 | FL_ITS ---
EXAMINATION: FL GUIDANCE ONLY HISTORY: pain bilateral knee COMPARISON: None available. TECHNIQUE: Fluoroscopy time: 0.5 minutes. Cumulative Dose: 2.93 mGy. DAP: 0.0510 mGym2 Images: 4. FINDINGS: Fluoroscopic spot films of the left knee demonstrate needles in place along the distal femur and proximal tibia. FL/FL guidance in treatment room IMPRESSION: Fluoroscopy during procedure. Please see procedure report for additional information. Electronically signed by: Chris Anglin MD 04/02/2025 03:02 PM EDT
--- OUTSIDE RECORDS SUMMARY | 2025-04-02 07:52 | XMS_ITS | Encounter Summary ---
Author Organization [employer] Address [address] [facility] [address]t [place] [address] Care Team Providers Care Button Sawyer Name Role Phone Ragini So MD Primary Care Provide r Reason for Visit * Reason Comments Med Refill Encounter Details Date Type Department Care Team ([facility] st Contact Info) Description 04/03/2024 Refill [facility] [address] [place], [place] [phone] Ragini So MD [address] [place] [address] Social History Tobacco Use Types Packs/Day Years [...] documented as of this encounter Care Teams Button Sawyer Relationship Specialty Start Date End Date Ragini So MD [address] [place] [address] PCP - General Family Medicine 03/31/18 documented as of this encounter
--- OUTSIDE RECORDS SUMMARY | 2025-04-02 07:52 | XMS_ITS | Encounter Summary ---
Author Organization [employer] Address [address] [facility] 7t [place] [address] Care Team Providers Care Bombsight Specialist Name Role Phone Ragini So MD Primary Care Provide r Reason for Visit * Reason Onset Date Comments Medication Question 06/21/2024 Encounter Details Date Type Department Care Team ([facility] Contact Info) Description 06/21/2024 Telephone [facility] [address] [place], [place] [phone] Ragini So MD [address] [place] [address] Medication Question Social History Tobacco Use Types [...] call back for another medication. Please contact: [phone] (Filipino) documented in this encounter Plan of Treatment Not on file documented as of this encounter Visit Diagnoses Not on filedocumented in this encounter Additional Health Concerns Assessment Noted Time PHQ-9 Depression Total Score: 6 01/19/20 24 10:44 AM EDT documented as of this encounter Care Teams Bombsight Specialist Relationship Specialty Start Date End Date Ragini So MD [address] [place] [address] PCP - General Family Medicine 03/31/18 documented as of this encounter
--- OUTSIDE RECORDS SUMMARY | 2025-04-02 07:53 | XMS_ITS | Encounter Summary ---
Author Organization [employer] Address [address] [facility] 7t [place] [address] Care Team Providers Care Precinct I Police Sergeant Name Role Phone Ragini So MD Primary Care Provide r Reason for Visit * Reason Onset Date Comments PA authorization 05/11/2023 Prior Authorization 05/11/2023 Venlafaxine XR Encounter Details Date Type Department Care Team ([facility] st Contact Info) Description 05/11/2023 Telephone [facility] [address] [place] [address] Ragini So MD [address] [place] [address] PA authorization; Prior Authorization (Venlafaxine XR ) [...] below. If any questions contact pt at [phone] (luxembourgish speaker) * Telephone Encounter - Dalia Okeefe [...] documented as of this encounter Care Teams Precinct I Police Sergeant Relationship Specialty Start Date End Date Ragini So MD [address] [facility] [place] [address] PCP - General Family Medicine 03/31/18 documented as of this encounter
--- OUTSIDE RECORDS SUMMARY | 2025-04-02 07:53 | XMS_ITS | Encounter Summary ---
Author Organization [employer] Address [address] [facility] 7t [place] [address] Care Team Providers Care Glue Jointer Feeder Name Role Phone Ragini So MD Primary Care Provide r Encounter Details Date Type Department Care Team ([facility] st Contact Info) Description 05/23/2023 Orders Only [facility] [address] [place], [place] [phone] Ragini So MD [address] [place], [place] [phone] Hot flashes due to menopause (Primary Dx) [...] documented as of this encounter Care Teams Glue Jointer Feeder Relationship Specialty Start Date End Date Ragini So MD [address] [place] [phone] PCP - General Family Medicine 03/31/18 documented as of this encounter
--- OUTSIDE RECORDS SUMMARY | 2025-04-02 07:53 | XMS_ITS | Encounter Summary ---
Author Organization [employer] Address [address] [facility] 7[address] [place] [address] Care Team Providers Care Car Sealer Name Role Phone Ragini So MD Primary Care Provide r Encounter Details Date Type Department Care Team (Latest Contact Info) Description 06/06/2019 Abstract [facility] CONVERSIONS Dental, Provider, DDS Social [...] on filedocumented in this encounter Care Teams Car Sealer Relationship Specialty Start Date End Date Ragini So MD [address] [place] [address] PCP - General Family Medicine 03/31/18 documented as of this encounter
--- OUTSIDE RECORDS SUMMARY | 2025-04-02 07:53 | XMS_ITS | Encounter Summary ---
Author Organization [employer] Address [address] [facility] 7t [place] [address] Care Team Providers Care Game Farm Supervisor Name Role Phone Ragini So MD Primary Care Provide r Encounter Details Date Type Department Care Team ([facility] st Contact Info) Description 09/03/2022 Abstract [facility] [address] [place] [address] Janak Chao, DIETER [address] [place] [address] Social History Tobacco Use Types Packs/Day Years [...] on filedocumented in this encounter Care Teams Game Farm Supervisor Relationship Specialty Start Date End Date Ragini So MD [address] [place] [address] PCP - General Family Medicine 03/31/18 documented as of this encounter
--- OUTSIDE RECORDS SUMMARY | 2025-04-02 07:53 | XMS_ITS | Clinical Summary ---
Author Organization [employer] Address [address] [place] [address] 7[address] [place] [address] Care Team Providers Care Rivet Catcher Name Role Phone Ragini So MD Primary Care Provide r Allergies No known active allergies Medications diphenhydrAMIN E (Benadryl Allergy) 25 MG tablet Take 2 tablets by mouth every 4 (four) hours. 1 Active fluticasone (Flonase Allergy Relief) 50 MCG/ACT nasal spray Administer 2 sprays into affected nostril(s) at bed time. 9 Active hydrocortisone 2.5 % cream Apply topically every 12 (twelve) hours. 2 Active traZODone (Desyrel) 50 MG tablet Take 1 tablet by mouth at bed time. 2 Active LORazepam (Ativan) 1 MG tabletIndicati ons:Anxiety TAKE 1 TABLET BY MOUTH AT BEDTIME 28 tablet 3 Active albuterol 108 (90 Base) MCG/ACT inhaler Inhale 2 puffs every 4 (four) hours if needed for wheezing or shortness of breath. 18 g 3 Active loratadine-pse udoephedrine ER (Claritin-D 24-hour) 10-240 MG 24 hr tabletIndicati ons:Cough in adult Take 1 tablet by mouth in the morning for 7 days. 7 tablet 3 Active Diclofenac Sodium 1 % gelIndications :Left wrist pain,Neuropath ic pain APPLY 2 GRAMS TOPICALLY THREE TIMES DAILY TO AFFECTED AREA(S) 100 g 2 4 Active gabapentin (Neurontin) 400 MG capsuleIndicat ions:Neuropath ic pain Take 1 capsule (400 mg) by mouth 3 times daily. 90 capsule 4 Active levocetirizine (Xyzal) 5 MG tablet TAKE 1 TABLET BY MOUTH EVERY EVENING 90 tablet 1 5 Active D3 Super Strength 50 MCG (1999 UT) capsuleIndicat ions:Vitamin D deficiency TAKE 1 CAPSULE BY MOUTH EVERY DAY 90 capsule 1 5 Active Tirzepatide-We ight Management (Zepbound) 10 MG/0.5ML solution auto-injectorI ndications:BMI 27.0-27.9,adul t Inject 0.5 mL (10 mg) under the skin 1 (one) time per week. 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 I decided [...] Type Department Care Team Description 02/12/2025 Refill [facility] [address] [place] [address] Ragini So MD Anxiety 01/21/2025 3:30 PM EDT Office Visit [facility] [address] [place] [address] Ragini So MD Bilateral primary osteoarthritis of knee; Fibromyalgia; BMI 27.0-27.9,adult 01/21/2025 Travel 01/18/2025 Telephone [facility] [address] [place] [address] Ragini So MD Chart Prep 01/15/2025 Refill [facility] [address] [place] [address] Ragini So MD Vitamin D deficiency 01/14/2025 Travel 01/01/2025 Refill [facility] [address] [place] [address] Ragini So MD from Last 3 Months Immunizations Immunization Administration [...] 06/12/2023 12/10/2022 Dental X-Ray: Bitewings 12/12/2023 12/10/2022 Mammogram 08/09/2024 08/09/2023, 02/0 12/2023, 11/08/2022, Additional history exists COVID-19 Vaccine ( season) 2025 06/08/2022, 10/08/2020, 07/23/2020 Influenza Vaccine (#1) 2025 , 04/23/2020, 03/20/2019, Additional history exists Dental X-Ray: Full Mouth 06/15/2025 06/14/2022 Alcohol/Substance Use Screening 01/21/2026 01/21/2025 Depression Screening 01/21/2026 01/21/2025, 01/22/20 Disability Screening 01/21/2026 01/21/2025 SDOH Screening 01/21/2026 01/21/2025 Tobacco Screening 01/21/2026 01/21/2025 DTaP/Tdap/Td Vaccines (2 - Td or Tdap) 04/10/2028 04/10/2018 Lipid Panel 02/26/2030 02/26/2025, 01/01, 10/04/2022, Additional history exists Colonoscopy 10/13/2030 10/13/2020 Colorectal Cancer Screening 10/13/2030 RSV Patients and Patients Aged 60 years or older (1 - 1-dose 75+ series) 2045 Zoster Vaccines Completed 12/29/2021, 10/08/2021 HIV Screening Completed 02/26/2025, 01/01, 03/20/2021 Hepatitis C Screening Completed 02/26/2025, 024 Cervical Cancer Screening Discontinued HIB Vaccines Aged [...] Procedure Name Priority Date/Time Associated Diagnosis Comments TSH W/REFLEX TO FT4 Routine 02/26/2025 1 1:25 AM EDT Fibromyalgia VITAMIN D,25-OH,TOTAL,IA Routine 02/26/2025 11:25 AM EDT Fibromyalgia BMI 27.0-27.9,adult LIPID PANEL, STANDARD Routine 02/26/2025 11:25 AM EDT Fibromyalgia BMI 27.0-27.9,adult HEPATITIS C AB W/REFL TO HCV RNA, QN, PCR Routine 02/26/2025 11:25 AM EDT Fibromyalgia BMI 27.0-27.9,adult HIV 1/2 ANTIGEN/ANTIBODY, FOURTH GENERATION W/RFL Routine 02/26/2025 11:25 AM EDT Fibromyalgia BMI 27.0-27.9,adult HEMOGLOBIN A1C Routine 02/26/2025 11:25 AM EDT Fibromyalgia BMI 27.0-27.9,adult COMPREHENSIVE METABOLIC PANEL Routine 02/26/2025 11:25 AM EDT Fibromyalgia BMI 27.0-27.9,adult CBC WITH AUTO DIFFERENTIAL Routine 02/26/2025 11:25 AM EDT Fibromyalgia BMI 27.0-27.9,adult BI MAMMOGRAM DIAGNOSTIC TOMOSYNTHESIS BILATERAL Routine 08/09/2023 [...] Recently Relevant to Health Maintenance Results * Vitamin D, 25-Hydroxy, Total, Immunoassay (02/26/2025 11:25 AM EDT) Vitamin D 25-OH Total 50.6 >30 ng/mL [facility] Comment: Health Based Reference Values*< 20 ng/mL Rcnegyseg85-83 ng/mL Insufficient> 30 ng/mL Sufficient*Briseida ROGERS. N Engl J Med. 2007;357:266-280There is no well-established upper level of normal vitamin Dlevels. Some laboratories use 50 ng/mL as an upper limit ofnormal. However, toxicity is patient-dependent and may occurat any level. Careful correlation with the patient'spresentation is necessary and, if there is concern forvitamin D toxicity, treatment should be consideredirrespective of the serum level.Care must be taken in interpreting Vitamin D results fromdifferent laboratories and methodologies. Published datademonstrated that results from patients undergoinghemodialysis may show a negative bias when tested withvarious automated 25-OH vitamin D assays when compared toLC-MS/MS.When testing samples from patients whose predominant form ofVitamin D is Vitamin D2, such as patients receiving VitaminD2 supplementation, results that are subtherapeutic shouldbe confirmed with another method such as LC-MS/MS. Blood Venous blood specimen / Unknown 02/26/2025 11:25 AM EDT 02/26/2025 11:25 AM EDT us Ragini Cline MD LAB BLOOD ORDERABLES Final Result [facility] [address] [place] [phone] * TSH with Reflex to Free T4 (02/26/2025 11:25 AM EDT) TSH reflex Free T4 1.72 0.32 - 4.0 uIU/mL [facility] Blood Venous blood specimen / Unknown 02/26/2025 11:25 AM EDT 02/26/2025 11:25 AM EDT Ragini Cline MD LAB BLOOD ORDERABLES Final Result [facility] [address] [place] [phone] * (ABNORMAL) CBC auto differential (02/26/2025 11:25 AM EDT) White Blood Count 6.9 4.8 - 10.8 X10*3/uL [facility] Red Blood Count 4.23 4.20 - 5.50 X10*6/uL [facility] Hemoglobin 12.1 12.0 - 16.0 g/dl [facility] Hematocrit 34.6(L) 37.0 - 47.0 % [facility] Mean Corpuscular Volume 81.8 80.0 - 98.0 fL [facility] Mean Corpuscular Hemoglobin 28.6 27.0 - 33.0 pg [facility] Mean Corpuscular HGB Conc 35.0 31.0 - 35.0 g/dl [facility] Red Cell Distribution Width 14.2 11.0 - 16.0 % [facility] Platelet Count 276 160 - 400 X10*3/uL [facility] Mean Platelet Volume 11.9 9.4 - 12.3 fL [facility] Neutrophils Percent Auto 59.6 45 - 73 % [facility] Imm Gran Pct Auto 0.3 0.0 - 0.4 % [facility] Lymphocytes Percent Auto 30.4 20 - 40 % [facility] Monocytes Percent Auto 6.3 2 - 11 % [facility] Eosinophils Percent Auto 2.8 0 - 4 % [facility] Basophils Percent Auto 0.6 0 - 2 % [facility] NRBC Pct Auto 0.0 0.0 - 0.2 /100WBC [facility] Neutrophils Absolute Auto 4.1 2.0 - 8.3 x10*3/uL [facility] Imm Gran Abs Auto 0.02 0.00 - 0.03 X10*3/uL [facility] Lymphocytes Absolute Auto 2.1 1.2 - 4.9 X10*3/uL [facility] Monocytes Absolute Auto 0.4 0.1 - 1.2 X10*3/uL [facility] Eosinophils Absolute Auto 0.2 0.0 - 0.4 X10*3/uL [facility] Basophils Absolute Auto 0.0 0.0 - 0.2 X10*3/uL [facility] NRBC Abs Auto 0.000 0.0 - 0.012 X10*3/uL [facility] Blood Venous blood specimen / Unknown 02/26/2025 11:25 AM EDT 02/26/2025 11:25 AM EDT us Ragini Cline MD LAB BLOOD ORDERABLES Final Result Performing Organization Address [facility] Co de Phone Number [facility] [address] [place] [phone] * Hepatitis C Antibody with Reflex to HCV, RNA, Quantitative, Real-Time PCR (02/26/2025 11:25 AM EDT) Hepatitis C Antibody Nonreactive Nonreactive [facility] Comment:Antibodies to HCV no t detected; does not exclude early acuteHCV infection. Blood Venous blood specimen / Unknown 02/26/2025 11:25 AM EDT 02/26/2025 11:25 AM EDT us Ragini Cline MD LAB BLOOD ORDERABLES Final Result Performing Organization Address [facility] Co de Phone Number [facility] [address] [place] [phone] * HIV-1/2 Antigen and Antibodies, Fourth Generation, with Reflexes (02/26/2025 11:25 AM EDT) HIV AB/AG Nonreactive Nonreactive [facility] Comment:HIV-1 p24 Ag and/or HIV-1/HIV-2 Ab not detected.A test result that is nonreactive does not exclude thepossibility of exposure to or infection with HIV-1 and/orHIV-2. Nonreactive results in this assay for individualswith prior exposure to HIV-1 and/or HIV-2 may be due toantigen and antibody levels that are below the limit ofdetection of this assay.The [employer] HIV Ag/Ab Combo assay result andsupplemental assay results should be interpreted inconjunction with the patient's clinical presentation,history and other laboratory results. If the results areinconsistent with clinical evidence, additional testing issuggested to confirm the result. Blood Venous blood specimen / Unknown 02/26/2025 11:25 AM EDT 02/26/2025 11:25 AM EDT Ragini Cline MD LAB BLOOD ORDERABLES Final Result [facility] [address] [place] [phone] * Hemoglobin A1c (02/26/2025 11:25 AM EDT) Hemoglobin A1c 5.0 <6.0 % [facility] Comment:Hemoglobin A1C Refer ence Range Adults: 4.8 - 6.0 % Non diabetic: < 6.0 % Goal: < 7.0 %Additional Action Suggested: > 8.0 %Note: Hemoglobin A1c results are invalid for patients with abnormal amounts of HbF. Blood transfusions may impact the HbA1c concentration in the patient sample. Estimated Average Glucose 97 mg/dL [facility] Comment:eAG = Estimated ave rage glucose which is %A1C expressed asaverage glucose, using the formula of the K0E-NtevldwMcojopi Glucose study (ADAG), Diabetes Care, Vol.31,#8,Feb. 2007 Blood Venous blood specimen / Unknown 02/26/2025 11:25 AM EDT 02/26/2025 11:25 AM EDT us Ragini Cline MD LAB BLOOD ORDERABLES Final Result Performing Organization Address [facility]/ZIP Co de Phone Number [facility] [address] [place] [phone] * (ABNORMAL) Lipid Panel, Standard (02/26/2025 11:25 AM EDT) Triglycerides 84 <150 mg/dL [facility] Comment:Desirable Triglyceri de: less than 150 mg/dLBorderline High Triglyceride 150-199 mg/dLHigh Triglyceride: 200-499 mg/dLVery High Triglyceride: greater than or equal to 5OO mg/dL Cholesterol 172 <200 mg/dL [facility] Comment:Desirable Cholestero l: less than 200 mg/dLBorderline High Cholesterol: 200-239 mg/dLHigh Cholesterol: greater than 239 mg/dL LDL Cholesterol Calculated 101(H) <100 mg/dL [facility] Comment:Desirable LDL: less than 100 mg/dLNear Optimal/Above Optimal LDL: 110- 129 mg/dLBorderline High LDL: 130-159 mg/dLHigh LDL: 160-189 mg/dLVery High LDL: greater than or equal to 190 mg/dL HDL Cholesterol 55 >40 mg/dL [facility] Comment:Desirable HDL: great er than 40 mg/dL Note: This HDL assay may give artificially low results in patients with liver disease. Blood Venous blood specimen / Unknown 02/26/2025 11:25 AM EDT 02/26/2025 11:25 AM EDT us Ragini Cline MD LAB BLOOD ORDERABLES Final Result Performing Organization Address City/[facility]/ZIP Co de Phone Number [facility] [address] [place] [phone] * (ABNORMAL) Comprehensive Metabolic Panel (02/26/2025 11:25 AM EDT) Sodium 137 135 - 145 mmol/L [facility] Potassium 4.3 3.3 - 5.1 mmol/L [facility] Chloride 104 96 - 108 mmol/L [facility] Carbon Dioxide 28 22 - 29 mmol/L [facility] Anion Gap 9(L) 12 - 20 [facility] Urea Nitrogen (BUN) 9 9 - 16 mg/dL [facility] Creatinine, Serum 0.77 0.5 - 1.4 mg/dL [facility] Estimated Glomerular Filt Rate >60 [facility] Comment:Chronic Kidney Disea se: Estimated GFR < 60 mL/min/1.21c2Dfyyes Kidney Disease: Estimated GFR < 15 mL/min/1.73m2 Glucose 93 60 - 115 mg/dL [facility] Calcium 9.1 8.4 - 10.2 mg/dL [facility] Bilirubin, Total 0.7 0.0 - 1.0 mg/dL [facility] Aspartate Amino Transferase 29 5 - 31 U/L [facility] Alanine Aminotransferase 19 0 - 31 U/L [facility] Total Protein 7.0 6.5 - 8.0 g/dL [facility] Albumin Level 4.4 3.5 - 5.0 g/dL [facility] Alkaline Phosphatase 78 39 - 117 U/L [facility] Blood Venous blood specimen / Unknown 02/26/2025 11:25 AM EDT 02/26/2025 11:25 AM EDT Ragini Cline MD LAB BLOOD ORDERABLES Final Result [facility] [address] [place] [phone] * BI Mammogram Diagnostic Tomosynthesis Bilateral (08/09/2023 1:20 PM EST) Anatomical Region Laterality Modality Breast Bilateral Mammography 08/09/2023 1:20 PM EST Narrative 08/09/2023 2:18 PM EST [facility] [address] [place] [address] [place] [address] Mammography Report Signed Patient: Wild YoungerAllyssa johns MR#: [id number] : 1970 Acct:[id number] Age/Sex: 53 / F ADM Date: 08/09/23 Loc: HO.MAMMO Attending Dr: Livia Macias NP Ordering Physician: iLvia Macias NP Results: 1Negativ e Date of Service: 08/09/23 Follow Up: 1 Year From Orig inal Mammogram Procedure(s): MM tomosynthesis diagnostic BI Accession Number(s): [id number] cc: Livia Macias NP; Janeen Wade MD [...] in OV> 08/09/23 1414 DD/ 1320 TD/TT: Job Training Supervisor: Procedure Note Donotuseinterpreter, Image - 08/09/2023 [facility] [address] [place] [address] Mammography Report Signed Patient: Allyssa Castro#: [id number] : 1970Acct:[id number] Age/Sex: 53 / FADM Date: 08/09/23 Loc: HO.MAMMO Attending Dr: Livia Macias NP Ordering Physician: Livia Mcaias NPResults: 1Negativ e Date of Service: 08/09/23Follow Up: 1 Year From Orig inal Mammogram Procedure(s): MM tomosynthesis diagnostic BI Accession Number(s): [id number] cc: Livia Macias DELIVERY ARCHITECT; Janeen Wade MD EXAMINATION: MM DIAGNOSTIC DIGITAL [...] in OV> 08/09/23 1414 DD/ 1320 TD/TT: Job Training Supervisor: Livia Macias RAVELER IMG BI PROCEDURES Final Result * Hm Colonoscopy (10/13/2020) Colonoscopy Normal Normal Narrative Abigail Braden - 10/13/2020 Repeat Colonoscopy in 10 years or earlier if clinically indicated see legacy note dated 10/13/2020 Historical Provider HEALTH MAINTENANCE Final Result from Last 3 Months or Most Recently Relevant to Health Maintenance Insurance [facility] [address] [facility] < 65 [facility] [place] INSURANCE C/O [employer] [place] SCHWAB [id number] Care Teams Rivet Catcher Relationship Specialty Start Date End Date Ragini So MD [address] [place] [phone] PCP - General Family Medicine 03/31/18
--- OUTSIDE RECORDS SUMMARY | 2025-04-02 07:53 | XMS_ITS | Encounter Summary ---
Author Organization [employer] Address [address] [facility] [address] [place] [address] Care Team Providers Care Training Professional Name Role Phone Ragini So MD Primary Care Provide r Encounter Details Date Type Department Care Team (Late st Contact Info) Description 06/24/2022 Abstract [facility]ULT D[facility] [address] [place], [place] [phone] Uriel Alberts DDS [address] [place] [address] Social History Tobacco Use Types Packs/Day Years [...] on filedocumented in this encounter Care Teams Training Professional Relationship Specialty Start Date End Date Ragini So MD [address] [place] [address] PCP - General Family Medicine 03/31/18 documented as of this encounter
--- OUTSIDE RECORDS SUMMARY | 2025-04-02 07:53 | XMS_ITS | Encounter Summary ---
Author Organization [employer] Address [address] [facility] [address]t [place] [address] Care Team Providers Care Metal Or Wood Blocker Name Role Phone Ragini So MD Primary [...] on filedocumented in this encounter Care Teams Metal Or Wood Blocker Relationship Specialty Start Date End Date Ragini So MD [address] [place] [phone] PCP - General Family Medicine 03/31/18 documented as of this encounter
--- OUTSIDE RECORDS SUMMARY | 2025-04-02 07:53 | XMS_ITS | Encounter Summary ---
Author Organization [employer] Address [address] [facility] [address] [place] [address] Care Team Providers Care Netsuite Developer Name Role Phone Ragini So MD [...] on filedocumented in this encounter Care Teams Netsuite Developer Relationship Specialty Start Date End Date Ragini So MD [address] [place] [phone] PCP - General Family Medicine 03/31/18 documented as of this encounter
--- OUTSIDE RECORDS SUMMARY | 2025-04-02 07:53 | XMS_ITS | Encounter Summary ---
Author Organization [employer] Address [address] [facility] [address] [place] [address] Care Team Providers Care Food Safety Specialist Name Role Phone Ragini So MD Primary Care Provide r Encounter Details Date Type Department Care Team (Late st Contact Info) Description 07/07/2022 Abstract [facility] ADULT DENTAL [address] [place] [address] Janak Chao, DIETER [address] [place] [address] Social History Tobacco Use Types Packs/Day Years [...] on filedocumented in this encounter Care Teams Food Safety Specialist Relationship Specialty Start Date End Date Ragini So MD [address] [place] [address] PCP - General Family Medicine 03/31/18 documented as of this encounter
--- OUTSIDE RECORDS SUMMARY | 2025-04-02 07:53 | XMS_ITS | Encounter Summary ---
Author Organization [employer] Address [address] [facility] [address] [place] [address] Care Team Providers Care Rolled Glass Crosscutter Name Role Phone Ragini So MD Primary Care Provide r Reason for Visit * Reason Comments Med Refill Encounter Details Date Type Department Care Team ([facility] st Contact Info) Description 05/30/2023 Refill [facility] [address] [place], [place] [phone] Ragini So MD [address] [place] [address] Anxiety Social History Tobacco Use Types Packs/Day [...] documented as of this encounter Care Teams Rolled Glass Crosscutter Relationship Specialty Start Date End Date Ragini So MD [address] [place] [address] PCP - General Family Medicine 03/31/18 documented as of this encounter
--- OUTSIDE RECORDS SUMMARY | 2025-04-02 07:53 | XMS_ITS | Encounter Summary ---
Author Organization [employer] Address [address] [facility] [address] [place] [address] Care Team Providers Care Regrader Name Role Phone Ragini So MD Primary Care Provide r Encounter Details Date Type Department Care Team ([facility] st Contact Info) Description 09/03/2022 Abstract [facility] ADULT DENTAL [address] [place] [address] Janak Chao, DIETER [address] [place] [address] Social History Tobacco Use Types Packs/Day Years [...] on filedocumented in this encounter Care Teams Regrader Relationship Specialty Start Date End Date Ragini So MD [address] [place] [address] PCP - General Family Medicine 03/31/18 documented as of this encounter
--- OUTSIDE RECORDS SUMMARY | 2025-04-02 07:53 | XMS_ITS | Encounter Summary ---
Author Organization [employer] Address [address] [facility] [address] [place] [address] Care Team Providers Care Racquet Maker Name Role Phone Ragini So MD Primary Care Provide r Encounter Details Date Type Department Care Team ([facility] st Contact Info) Description 07/27/2023 Abstract [facility] [address] [place], [place] [phone] Ragini So MD [address] [place], [place] [phone] Social History Tobacco Use Types Packs/Day Years [...] documented as of this encounter Care Teams Racquet Maker Relationship Specialty Start Date End Date Ragini So MD [address] [place] [address] PCP - General Family Medicine 03/31/18 documented as of this encounter
== END 2025-04-02 07:43 | disposition home or self-care (01) ==
LOC: CF 07:42
PROVIDERS: Visit Provider Anesthesiology
DX: M17.0 Bilateral primary osteoarthritis of knee (principal)
CPT/HCPCS: 64454; J2795

== ENCOUNTER 2025-04-02 14:20 | Outpatient (AMB) | payer OTHER, SELFPAY ==
--- NOTE | 2025-04-02 14:28 | MHC.OFFVIS ---
Vital Signs 04/02/25 14:29 Height 5 ft 1 in Weight 183 lb BMI 34.6 BP 130/63 Blood Pressure Location Lt brachial Position Sitting Respiration 18 Pulse 67 Pulse Source Pulse Oximeter Pulse Oximetry (%) 98 Oxygen Delivery Method Room Air Intake Visit Reasons: Bilateral Diagnostic Genicular Nerve Block Neonatal Surgeon Required: Yes Neonatal Surgeon Services: Neonatal Surgeon Present Neonatal Surgeon Name: Family Allergies No Known Allergies (No Known Allergies*) Allergy (Verified 02/14/25 14:40) PFSH Medical History Vaginal itching Neuropathy Myopia of both eyes Neck pain Shoulder pain Mood disorder Fibromyalgia Rotator cuff impingement syndrome of left shoulder Osteoarthritis of knees, bilateral CADENCE (stress urinary incontinence, female) Constipated Hemorrhoids Anxiety Depression COVID-19 Surgical History H/O cervical spine surgery History of bladder surgery Social History Household Members: None Alcohol intake: never Patient Tobacco Use Status: Never used Tobacco Current occupational status: disabled Current occupation: left 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 ? Patient came to the operating room after informed consent was obtained.? He was positioned supine on the operating table [employer] monitors were applied , patient was sedated.? Time-out procedure was performed delineating correct site and side of the injections, patient's name and date of , allergies, need for antibiotics, risk of fire. Patient's knees as well as anterior surface of lower thigh as well as anterior surface of upper shins were prepped with ChloraPrep and draped with sterile towels.? Sterilely draped C-arm was brought over the operating field and sq picture of the patient's knees sequentially was obtained on the screen left and then right.? The point of interest were delineated as connection of bilateral metaphysis and diaphysis medial and lateral of the both femoral bones, as well as connections of the diaphysis and metaphysis bilaterally on the medial tibial bone.? The point of interest projection to the skin were injected with small amount of Lidocaine and after that 22 g. 3&1/2 spinal needles were inserted through the skin 1st on the left and then on the right.? The needles were driven toward the point of interest on anterior posterior and lateral views.? When on lateral views the needles were positioned with the tips in the projection of mid shaft of the bones the 1.5 to 2 cc of Marcaine was injected into each position.? Upon completion of the injections needles were removed sterile Band-Aids were applied. Orders: Orders FL guidance in treatment room 04/02/25 M25.561 - Pain in right knee, M25.562 - Pain in left knee Coding Level of Care Code Procedure Only Diagnoses Bilateral knee pain M25.561; M25.562 Osteoarthritis of knees, bilateral M17.0
[2025-04-02 14:29] VITALS: BP 130/63; PULSE 67; RESP 18; O2SAT 98; BMI 34.6
== END 2025-04-02 14:56 | disposition home or self-care (01) ==
LOC: HO.PMCPRC 14:20
PROVIDERS: PCP Internal Medicine; Visit Provider Anesthesiology
DX: M25.561 Pain in right knee (principal); M25.562 Pain in left knee; M17.0 Bilateral primary osteoarthritis of knee
CPT/HCPCS: 64454

== ENCOUNTER 2025-04-26 14:35 | Outpatient (AMB) | payer OTHER, SELFPAY ==
--- NOTE | 2025-04-26 14:44 | MHC.OFFVIS ---
Vital Signs 04/26/25 14:48 Height 5 ft 1 in Weight 156 lb 8 oz BMI 29.6 BP 118/73 Blood Pressure Location Lt brachial Position Sitting Pulse 62 Pulse Source Pulse Oximeter Pulse Oximetry (%) 98 Oxygen Delivery Method Room Air Intake Visit Reasons: S/P Bilateral Diagnostic Genicular Nerve Block Intake Note: Pain today 7/10 Whipped Topping Finisher Required: Yes Whipped Topping Finisher Language: Engraver Signature Name: Andrea # [id number] Accompanied by: Self / Same As Patient Allergies No Known Allergies (No Known Allergies*) Allergy (Verified 04/26/25 14:50) HPI Comments Details: The patient is a 55-year-old female presenting with chronic bilateral knee pain. The knee pain was addressed with bilateral diagnostic genicular nerve blocks performed on April [address] Garibay. The procedure was intended to provide temporary relief and assess the potential benefit of further interventions, such as genicular RFA. Post-procedure, the patient reported minimal pain relief, with pain levels decreasing from 8/10 before the procedure to 7/10 six hours after the injection. The lack of significant improvement indicated that the nerve blocks were not effective for her condition. Patient is being referred back to Orthopedics for further management. Past Procedures: 04/02/25: Bilateral Diagnostic Genicular Nerve Blocks-10% pain relief for 6 hours PRIOR: The patient is a 54-year-old female presenting with knee pain due to osteoarthritis. The knee pain is primarily located in the right knee, although both knees are affected. The pain is described as stabbing, aching, and is accompanied by a sensation of heaviness and tightness. The pain is constant, with a severity of 8/10 at midday and 6/10 in the morning. In October, the patient received a cortisone injection in the Orthopedic office, which provided relief for about a month. She did not follow up with Orthopedics after the initial injection. Patient reports taking gabapentin with partial relief. The patient has a history of fibromyalgia, which contributes to widespread pain, including in the shoulders, hands, feet, and neck. She also experiences neuropathy in both feet. - Onset and Timing: Pain is worse midday with a severity of 8/10, improving slightly in the morning to 6/10. - Quality and Character: Pain is described as stabbing, aching, with heaviness and tightness. - Location: Primarily affects the right knee, but both knees are involved. - Exacerbating Factors: Pain worsens as the day progresses; walking, bending, climbing stairs - Relieving Factors: Cortisone injection provided temporary relief; heat, gabapentin, knee bracing - Affect: Pain impacts multiple areas including knees, shoulders, hands, feet, and neck. - Analgesia: Currently using gabapentin for pain control. - Activities of Daily Living: Pain is constant and affects daily activities. [facility] Medical History Vaginal itching Neuropathy Myopia of both eyes Neck pain Shoulder pain Mood disorder Fibromyalgia Rotator cuff impingement syndrome of left shoulder Osteoarthritis of knees, bilateral CADENCE (stress urinary incontinence, female) Constipated Hemorrhoids Anxiety Depression COVID-19 Surgical History H/O cervical spine surgery History of bladder surgery Social History Household Members: None Alcohol intake: never Patient Tobacco Use Status: Never used Tobacco Current occupational status: disabled Current occupation: left hand Review of Systems Const Details: - Musculoskeletal: Reports persistent knee pain, exacerbated by walking and climbing All systems reviewed & are unremarkable except as noted in HPI and below Physical Exam Vital Signs: Last Vital Signs Pulse 62 04/26/25 14:48 BP 118/73 04/26/25 14:48 Pulse Ox 98 04/26/25 14:48 Oxygen Delivery Method Room Air 04/26/25 14:48 BMI result Body Mass Index 29.6 General: Appears afebrile. Alert and oriented. Mood and affect appropriate. Follows and participates in conversation appropriately. Respiratory effort is unlabored. No cough. Able to transition from sit to stand unassisted. Ambulates with bilaterally normal heel strike and toe off. Extrem Right lower extremity: knee Details: normal to inspection, tenderness Location: of the patella, of the medial joint line and of the lateral joint line, normal ROM and crepitus; no swelling, no ecchymosis, no deformity and no unusual warmth Left lower extremity: knee Details: normal to inspection, tenderness Location: of the medial joint line and of the lateral joint line, normal ROM and crepitus; no swelling, no ecchymosis, no deformity and no unusual warmth Results Reviewed Results Reviewed: XR KNEE, RIGHT XR KNEE, LEFT 10/08/24 CLINICAL INFORMATION: M25.569 - Pain in unspecified knee COMPARISON: None available. TECHNIQUE: Three views of each knee. FINDINGS: Right Knee: No fracture, dislocation, or suspicious bone lesion. Normal alignment. Mild medial, lateral, and more significant patellofemoral degenerative arthritis. There is lateral patellar tilt. No evidence of joint effusion. Normal soft tissues. Left Knee: No fracture, dislocation, or suspicious bone lesion. Normal alignment. Mild medial, lateral, and more significant patellofemoral degenerative arthritis. No evidence of joint effusion. Normal soft tissues. IMPRESSION: 1. Bilateral medial and lateral compartment mild osteoarthrosis, with more significant arthrosis in the patellofemoral joints, right greater than left. 2. No evidence of joint effusion. Assessment & Plan Assessment & Plan (1) Bilateral knee pain: Code(s): M25.561 - Pain in right knee; M25.562 - Pain in left knee Category: Medical (2) Osteoarthritis of knees, bilateral: Code(s): M17.0 - Bilateral primary osteoarthritis of knee Category: Medical Plan The patient will be referred back to Orthopedics for further evaluation and management of her chronic bilateral knee pain, as the diagnostic genicular nerve blocks did not provide significant relief, thus not candidate for genicular RFA or Sprint PNS trial. All questions and concerns have been answered and patient agreed with the treatment plan. Follow up as needed. Patient was informed and verbally consented to the use of an ambient scribe for clinic note documentation during this visit. Coding Level of Care Code Est Pt Level 3 (19888) Complex EM visit Add On G2211 Diagnoses Bilateral knee pain M25.561; M25.562 Osteoarthritis of knees, bilateral M17.0
[2025-04-26 14:48] VITALS: BP 118/73; PULSE 62; O2SAT 98; BMI 29.6
--- OUTSIDE RECORDS SUMMARY | 2025-04-26 16:24 | XMS_ITS | Encounter Summary ---
Author Organization [employer] Address [address] [facility] 7t [place] [address] Care Team Providers Care Mud Plant Operator Name Role Phone Ragini So MD Primary Care Provide r Reason for Visit * Reason Onset Date Comments Medication Question 06/21/2024 Encounter Details Date Type Department Care Team ([facility] Contact Info) Description 06/21/2024 Telephone [facility] MEDICINE [address] [place], [place] [phone] Ragini So MD [address] [place] [address] Medication Question Social History Tobacco Use Types [...] call back for another medication. Please contact: [phone] (Tongan) documented in this encounter Plan of Treatment Not on file documented as of this encounter Visit Diagnoses Not on filedocumented in this encounter Additional Health Concerns Assessment Noted Time PHQ-9 Depression Total Score: 6 01/19/20 24 10:44 AM EDT documented as of this encounter Care Teams Mud Plant Operator Relationship Specialty Start Date End Date Ragini So MD [address] [place] [address] PCP - General Family Medicine 03/31/18 documented as of this encounter
--- OUTSIDE RECORDS SUMMARY | 2025-04-26 16:24 | XMS_ITS | Encounter Summary ---
Author Organization [employer] Address [address] [facility] 7t [place] [address] Care Team Providers Care Social Media Community Manager Name Role Phone Ragini So MD Primary Care Provide r Encounter Details Date Type Department Care Team ([facility] st Contact Info) Description 05/23/2023 Orders Only [facility] MEDICINE [address] [place], [place] [phone] Ragini So MD [address] [place], [place] [phone] Hot flashes due to menopause (Primary Dx) [...] documented as of this encounter Care Teams Social Media Community Manager Relationship Specialty Start Date End Date Ragini So MD [address] [place] [phone] PCP - General Family Medicine 03/31/18 documented as of this encounter
--- OUTSIDE RECORDS SUMMARY | 2025-04-26 16:24 | XMS_ITS | Encounter Summary ---
Author Organization [employer] Address [address] [facility] 7t [place] [address] Care Team Providers Care Pharmacy Operations Coordinator Name Role Phone Ragini So MD Primary Care Provide r Reason for Visit * Reason Onset Date Comments PA authorization 05/11/2023 Prior Authorization 05/11/2023 Venlafaxine XR Encounter Details Date Type Department Care Team ([facility] st Contact Info) Description 05/11/2023 Telephone [facility] MEDICINE [address] [place] [address] Ragini So MD [address] [place] [address] PA authorization; Prior Authorization (Venlafaxine XR ) [...] below. If any questions contact pt at [phone] (saudi arabian speaker) * Telephone Encounter - Dalia Okeefe [...] documented as of this encounter Care Teams Pharmacy Operations Coordinator Relationship Specialty Start Date End Date Ragini So MD [address] [facility] [place] [address] PCP - General Family Medicine 03/31/18 documented as of this encounter
--- OUTSIDE RECORDS SUMMARY | 2025-04-26 16:24 | XMS_ITS | Encounter Summary ---
Author Organization [employer] Address [address] [facility] 7t [place] [address] Care Team Providers Care Wireless Telegrapher Name Role Phone Ragini So MD Primary Care Provide r Encounter Details Date Type Department Care Team (Late st Contact Info) Description 06/24/2022 Abstract [facility] ADULT DENTAL [address] [place], [place] [phone] Uriel Alberts DDS [address] [place] [address] Social History Tobacco Use Types Packs/Day Years [...] on filedocumented in this encounter Care Teams Wireless Telegrapher Relationship Specialty Start Date End Date Ragini So MD [address] [place] [address] PCP - General Family Medicine 03/31/18 documented as of this encounter
--- OUTSIDE RECORDS SUMMARY | 2025-04-26 16:24 | XMS_ITS | Encounter Summary ---
Author Organization [employer] Address [address] [facility] [address] [place] [address] Care Team Providers Care Outsole Tacker Name Role Phone Ragini So MD Primary [...] on filedocumented in this encounter Care Teams Outsole Tacker Relationship Specialty Start Date End Date Ragini So MD [address] [place] [phone] PCP - General Family Medicine 03/31/18 documented as of this encounter
--- OUTSIDE RECORDS SUMMARY | 2025-04-26 16:24 | XMS_ITS | Encounter Summary ---
Author Organization [employer] Address [address] [facility] [address]t [place] [address] Care Team Providers Care Customer Energy Specialist Name Role Phone Ragini So MD Primary Care Provide r Encounter Details Date Type Department Care Team ([facility] st Contact Info) Description 09/03/2022 Abstract [facility] ADULT D[facility]AL [address] [place] [address] Janak Chao, DIETER [address] [place] [address] Social History Tobacco Use Types Packs/Day Years [...] on filedocumented in this encounter Care Teams Customer Energy Specialist Relationship Specialty Start Date End Date Ragini So MD [address] [place] [address] PCP - General Family Medicine 03/31/18 documented as of this encounter
--- OUTSIDE RECORDS SUMMARY | 2025-04-26 16:24 | XMS_ITS | Encounter Summary ---
Author Organization [employer] Address [address] [facility] [address] [place] [address] Care Team Providers Care Soldering Inspector Name Role Phone Ragini So MD Primary [...] on filedocumented in this encounter Care Teams Soldering Inspector Relationship Specialty Start Date End Date Ragini So MD [address] [place] [id number] PCP - General Family Medicine 03/31/18 documented as of this encounter
--- OUTSIDE RECORDS SUMMARY | 2025-04-26 16:24 | XMS_ITS | Encounter Summary ---
Author Organization [employer] Address [address] [place] [address] Care Team Providers Care Wall Attendant Name Role Phone Ragini So MD Primary Care Provide r Reason for Visit * Reason Comments Med Refill Encounter Details Date Type Department Care Team ([facility] st Contact Info) Description 05/30/2023 Refill [facility] MED & PEDS [address] [place], [place] [phone] Ragini So MD [address] [place] [address] Anxiety Social History Tobacco Use Types Packs/Day [...] documented as of this encounter Care Teams Wall Attendant Relationship Specialty Start Date End Date Ragini So MD [address] [place] [address] PCP - General Family Medicine 03/31/18 documented as of this encounter
--- OUTSIDE RECORDS SUMMARY | 2025-04-26 16:24 | XMS_ITS | Encounter Summary ---
Author Organization [employer] Address [address] [facility] [place] [address] Care Team Providers Care Senior Information Systems Architect Name Role Phone Ragini So MD Primary Care Provide r Reason for Visit * Reason Comments Med Refill Encounter Details Date Type Department Care Team ([facility] st Contact Info) Description 04/25/2025 Refill [facility] CHC MED & PEDS [address] [place], [place] [phone] Nette Cabral, ANP [address] [place] [address] Neuropathic pain Social History Tobacco Use Types Packs/Day Years [...] as of this encounter Visit Diagnoses Diagnosis Neuropathic pain documented in this encounter Additional Health Concerns Assessment Noted Time PHQ-9 Depression Total Score: 0 01/22/20 25 3:10 PM EDT documented as of this encounter Care Teams Senior Information Systems Architect Relationship Specialty Start Date End Date Ragini So MD [address] [place] [address] PCP - General Family Medicine 03/31/18 documented as of this encounter
--- OUTSIDE RECORDS SUMMARY | 2025-04-26 16:24 | XMS_ITS | Encounter Summary ---
Author Organization [employer] Address [address] [facility] [address] [place] [address] Care Team Providers Care Patient Monitor Name Role Phone Ragini So MD Primary Care Provide r Encounter Details Date Type Department Care Team (Late st Contact Info) Description 07/07/2022 Abstract [facility] ADULT DENTAL [address] [place] [address] Janak Chao, DIETER [address] [place] [address] Social History Tobacco Use Types Packs/Day Years [...] on filedocumented in this encounter Care Teams Patient Monitor Relationship Specialty Start Date End Date Ragini So MD [address] [place] [address] PCP - General Family Medicine 03/31/18 documented as of this encounter
--- OUTSIDE RECORDS SUMMARY | 2025-04-26 16:24 | XMS_ITS | Clinical Summary ---
Author Organization [employer] Address [address] [place] [address] [address] [place] [address] Care Team Providers Care Rn Telephonic Name Role Phone Ragini So MD Primary [...] 7 days. 7 tablet 06/29/20 23 Active gabapentin (Neurontin) 400 MG capsuleIndica tions:Neuropa [...] Management (Zepbound) 10 MG/0.5ML solution auto-injector Indications:B KS 27.0-27.9,ravin lt Inject 0.5 mL (10 mg) under the skin 1 (one) time per week. 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 I decided [...] Encounters Date Type Department Care Team Description 04/25/2025 Refill [facility] [address] [place] [address] Nette Cabral ANP Neuropathic pain 04/06/2025 Refill [facility] [address] [place] [address] Ragini So MD Left wrist pain; Neuropathic pain 02/12/2025 Refill [facility] [address] [place] [address] Ragini So MD Anxiety from Last 3 Months Immunizations Immunization Administration [...] Vitamin D 25-OH Total 50.6 >30 ng/mL [facility] Comment: Health Based Reference Values*< 20 ng/mL Usqhoulnn28-99 ng/mL Insufficient> 30 ng/mL Sufficient*Briseida ROGERS. N [...] Cline MD LAB BLOOD ORDERABLES Final Result [facility] [address] [place] [phone] * TSH with Reflex to Free T4 (02/26/2025 11:25 AM EDT) TSH reflex Free T4 1.72 0.32 - 4.0 uIU/mL [facility] Blood Venous blood specimen / Unknown 02/26/2025 11:25 AM EDT 02/26/2025 11:25 AM EDT us Ragini Cline MD LAB BLOOD ORDERABLES Final Result [facility] [address] [place], [place] [phone] * (ABNORMAL) CBC auto differential (02/26/2025 11:25 AM EDT) White Blood Count 6.9 4.8 - 10.8 X10*3/uL [facility] Red Blood Count 4.23 4.20 - 5.50 X10*6/uL [facility] Hemoglobin 12.1 12.0 - 16.0 g/dl [facility] Hematocrit 34.6(L) 37.0 - 47.0 % [facility] Mean Corpuscular Volume 81.8 80.0 - 98.0 fL [facility] Mean Corpuscular Hemoglobin 28.6 27.0 - 33.0 pg [facility] Mean Corpuscular HGB Conc 35.0 31.0 - 35.0 g/dl [facility] Red Cell Distribution Width 14.2 11.0 - 16.0 % [facility] Platelet Count 276 160 - 400 X10*3/uL [facility] Mean Platelet Volume 11.9 9.4 - 12.3 fL [facility] Neutrophils Percent Auto 59.6 45 - 73 % [facility] Imm Gran Pct Auto 0.3 0.0 - 0.4 % [facility] Lymphocytes Percent Auto 30.4 20 - 40 % [facility] Monocytes Percent Auto 6.3 2 - 11 % [facility] Eosinophils Percent Auto 2.8 0 - 4 % [facility] Basophils Percent Auto 0.6 0 - 2 % [facility] NRBC Pct Auto 0.0 0.0 - 0.2 /100WBC [facility] Neutrophils Absolute Auto 4.1 2.0 - 8.3 x10*3/uL [facility] Imm Gran Abs Auto 0.02 0.00 - 0.03 X10*3/uL [facility] Lymphocytes Absolute Auto 2.1 1.2 - 4.9 X10*3/uL [facility] Monocytes Absolute Auto 0.4 0.1 - 1.2 X10*3/uL [facility] Eosinophils Absolute Auto 0.2 0.0 - 0.4 X10*3/uL [facility] Basophils Absolute Auto 0.0 0.0 - 0.2 X10*3/uL [facility] NRBC Abs Auto 0.000 0.0 - 0.012 X10*3/uL [facility] Blood Venous blood specimen / Unknown 02/26/2025 11:25 AM EDT 02/26/2025 11:25 AM EDT Ragini Cline MD LAB BLOOD ORDERABLES Final Result Performing Organization Address [facility]/ZIP Co de Phone Number [facility] [address] [place] [phone] * Hepatitis C Antibody with Reflex to HCV, RNA, Quantitative, Real-Time PCR (02/26/2025 11:25 AM EDT) Hepatitis C Antibody Nonreactive Nonreactive [facility] Comment:Antibodies to HCV no t detected; does not exclude early acuteHCV infection. Blood Venous blood specimen / Unknown 02/26/2025 11:25 AM EDT 02/26/2025 11:25 AM EDT us Ragini Cline MD LAB BLOOD ORDERABLES Final Result Performing Organization Address [facility]/ZIP Co de Phone Number [facility] [address] [place] [phone] * HIV-1/2 Antigen and Antibodies, Fourth Generation, with Reflexes (02/26/2025 11:25 AM EDT) HIV AB/AG Nonreactive Nonreactive [facility] Comment:HIV-1 p24 Ag and/or HIV-1/HIV-2 Ab not detected.A test result that is nonreactive does not exclude thepossibility of exposure to or infection with HIV-1 and/orHIV-2. Nonreactive results in this assay for individualswith prior exposure to HIV-1 and/or HIV-2 may be due toantigen and antibody levels that are below the limit ofdetection of this assay.The [employer] HIV Ag/Ab Combo assay result andsupplemental assay results should be interpreted inconjunction with the patient's clinical presentation,history and other laboratory results. If the results areinconsistent with clinical evidence, additional testing issuggested to confirm the result. Blood Venous blood specimen / Unknown 02/26/2025 11:25 AM EDT 02/26/2025 11:25 AM EDT us Ragini Cline MD LAB BLOOD ORDERABLES Final Result Performing Organization Address [facility] Co de Phone Number [facility] [address] [place] [phone] * Hemoglobin A1c (02/26/2025 11:25 AM EDT) Hemoglobin A1c 5.0 <6.0 % [facility] Comment:Hemoglobin A1C Refer ence Range Adults: 4.8 - 6.0 % Non diabetic: < 6.0 % Goal: < 7.0 %Additional Action Suggested: > 8.0 %Note: Hemoglobin A1c results are invalid for patients with abnormal amounts of HbF. Blood transfusions may impact the HbA1c concentration in the patient sample. Estimated Average Glucose 97 mg/dL [facility] Comment:eAG = Estimated ave rage glucose which is %A1C expressed asaverage glucose, using the formula of the W0X-TxadctiFcdcvsu Glucose study (ADAG), Diabetes Care, Vol.31,#8,Feb. 2007 Blood Venous blood specimen / Unknown 02/26/2025 11:25 AM EDT 02/26/2025 11:25 AM EDT us Ragini Cline MD LAB BLOOD ORDERABLES Final Result Performing Organization Address [facility] Co de Phone Number [facility] [address] [place] [address] [place] [phone] * (ABNORMAL) Lipid Panel, Standard (02/26/2025 11:25 AM EDT) Triglycerides 84 <150 mg/dL [facility] Comment:Desirable Triglyceri de: less than 150 mg/dLBorderline High Triglyceride 150-199 mg/dLHigh Triglyceride: 200-499 mg/dLVery High Triglyceride: greater than or equal to 5OO mg/dL Cholesterol 172 <200 mg/dL [facility] Comment:Desirable Cholestero l: less than 200 mg/dLBorderline High Cholesterol: 200-239 mg/dLHigh Cholesterol: greater than 239 mg/dL LDL Cholesterol Calculated 101(H) <100 mg/dL [facility] Comment:Desirable LDL: less than 100 mg/dLNear Optimal/Above Optimal LDL: 110- 129 mg/dLBorderline High LDL: 130-159 mg/dLHigh LDL: 160-189 mg/dLVery High LDL: greater than or equal to 190 mg/dL HDL Cholesterol 55 >40 mg/dL [facility] Comment:Desirable HDL: great er than 40 mg/dL Note: This HDL assay may give artificially low results in patients with liver disease. Blood Venous blood specimen / Unknown 02/26/2025 11:25 AM EDT 02/26/2025 11:25 AM EDT us Ragini Cline MD LAB BLOOD ORDERABLES Final Result [facility] [address] [place] [phone] * (ABNORMAL) Comprehensive Metabolic Panel (02/26/2025 11:25 AM EDT) Sodium 137 135 - 145 mmol/L [facility] Potassium 4.3 3.3 - 5.1 mmol/L [facility] Chloride 104 96 - 108 mmol/L [facility] Carbon Dioxide 28 22 - 29 mmol/L [facility] Anion Gap 9(L) 12 - 20 [facility] Urea Nitrogen (BUN) 9 9 - 16 mg/dL [facility] Creatinine, Serum 0.77 0.5 - 1.4 mg/dL [facility] Estimated Glomerular Filt Rate >60 [facility] Comment:Chronic Kidney Disea se: Estimated GFR < 60 mL/min/1.55w6Otelph Kidney Disease: Estimated GFR < 15 mL/min/1.73m2 Glucose 93 60 - 115 mg/dL [facility] Calcium 9.1 8.4 - 10.2 mg/dL [facility] Bilirubin, Total 0.7 0.0 - 1.0 mg/dL [facility] Aspartate Amino Transferase 29 5 - 31 U/L [facility] Alanine Aminotransferase 19 0 - 31 U/L [facility] Total Protein 7.0 6.5 - 8.0 g/dL [facility] Albumin Level 4.4 3.5 - 5.0 g/dL [facility] Alkaline Phosphatase 78 39 - 117 U/L [facility] Blood Venous blood specimen / Unknown 02/26/2025 11:25 AM EDT 02/26/2025 11:25 AM EDT Ragini Cline MD LAB BLOOD ORDERABLES Final Result Performing Organization Address City/State/[facility] Co de Phone Number [facility] [address] [place] [phone] * BI Mammogram Diagnostic Tomosynthesis Bilateral (08/09/2023 1:20 PM EST) Anatomical Region Laterality Modality Breast Bilateral Mammography 08/09/2023 1:20 PM EST Narrative 08/09/2023 2:18 PM EST [facility] [address] [place] [address] Mammography Report Signed Patient: Allyssa Castro MR#: [id number] : 1970 Acct:[id number] Age/Sex: 53 / F ADM Date: 08/09/23 Loc: HO.MAMMO Attending Dr: Livia Macias BAKER BENCH Ordering Physician: Livia Macias NP Results: 1Negativ e Date of Service: 08/09/23 Follow Up: 1 Year From Orig inal Mammogram Procedure(s): MM tomosynthesis diagnostic BI Accession Number(s): [id number] cc: Livia Macias NP; Janeen Wade MD [...] in OV> 08/09/23 1414 DD/ 1320 TD/TT: Bed Machine Operator: Procedure Note Donotuseinterpreter, Image - 08/09/2023 [facility] [address] [place] [address] Mammography Report Signed Patient: Allyssa CastroMR#: [id number] : 1970Acct:[id number] Age/Sex: 53 / FADM Date: 08/09/23 Loc: HO.MAMMO Attending Dr: Livia Macias NP Ordering Physician: Livia Macias NPResults: 1Negativ e Date of Service: 08/09/23Follow Up: 1 Year From Orig inal Mammogram Procedure(s): MM tomosynthesis diagnostic BI Accession Number(s): [id number] cc: Livia Macias BAKER BENCH; Janeen Wade MD EXAMINATION: MM DIAGNOSTIC DIGITAL [...] in OV> 08/09/23 1414 DD/ 1320 TD/TT: Bed Machine Operator: Livia Macias BENCH ASSEMBLER OPERATOR IMG BI PROCEDURES Final Result * Colonoscopy (10/13/2020) Colonoscopy Normal Normal Narrative Abigail Braden - 10/13/2020 Repeat Colonoscopy in 10 years or earlier if clinically indicated see legacy note dated 10/13/2020 Historical Provider HEALTH MAINTENANCE Final Result from Last 3 Months or Most Recently Relevant to Health Maintenance Insurance [employer] ONE CARE < 65 [facility] INSURANCE C/O MEDATA LAYNE SCHWAB [id number] Care Teams Rn Telephonic Relationship Specialty Start Date End Date Ragini So MD [address] [place] [phone] PCP - General Family Medicine 03/31/18
--- OUTSIDE RECORDS SUMMARY | 2025-04-26 16:24 | XMS_ITS | Encounter Summary ---
Author Organization [employer] Address [address] [facility] [address] [place] [address] Care Team Providers Care Preparator Name Role Phone Ragini So MD Primary Care Provide r Encounter Details Date Type Department Care Team ([facility] st Contact Info) Description 07/27/2023 Abstract [facility] [address] [place], [place] [phone] Ragini So MD [address] [place], [place] [phone] Social History Tobacco Use Types Packs/Day Years [...] documented as of this encounter Care Teams Preparator Relationship Specialty Start Date End Date Ragini So MD [address] [place] [address] PCP - General Family Medicine 03/31/18 documented as of this encounter
--- OUTSIDE RECORDS SUMMARY | 2025-04-26 16:24 | XMS_ITS | Encounter Summary ---
Author Organization [employer] Address [address] [facility] [address] [place] [address] Care Team Providers Care Junior Accountant Name Role Phone Ragini So MD Primary Care Provide r Reason for Visit * Reason Comments Med Refill Encounter Details Date Type Department Care Team ([facility] st Contact Info) Description 04/03/2024 Refill [facility] [address] [place], [place] [phone] Ragini So MD [address] [place] [address] Social History Tobacco Use Types Packs/Day Years [...] documented as of this encounter Care Teams Junior Accountant Relationship Specialty Start Date End Date Ragini So MD [address] [place] [address] PCP - General Family Medicine 03/31/18 documented as of this encounter
--- OUTSIDE RECORDS SUMMARY | 2025-04-26 16:24 | XMS_ITS | Encounter Summary ---
Author Organization [employer] Address [address] [facility] 7[address] [place] [address] Care Team Providers Care Payment Poster Name Role Phone Ragini So MD Primary Care Provide r Encounter Details Date Type Department Care Team (Latest Contact Info) Description 06/06/2019 Abstract [facility] CONVERSIONS Dental, Provider, DDS Social History Tobacco [...] on filedocumented in this encounter Care Teams Payment Poster Relationship Specialty Start Date End Date Ragini So MD [address] [place] [phone] PCP - General Family Medicine 03/31/18 documented as of this encounter
--- OUTSIDE RECORDS SUMMARY | 2025-04-26 16:24 | XMS_ITS | Encounter Summary ---
Author Organization [employer] Address [address] [facility] [address] [place] [address] Care Team Providers Care Publication Editor Name Role Phone Ragini So MD Primary Care Provide r Encounter Details Date Type Department Care Team ([facility] st Contact Info) Description 09/03/2022 Abstract [facility] [address] [place] [address] Janak Chao, DIETER [address] [place] [address] Social History Tobacco Use Types Packs/Day Years [...] on filedocumented in this encounter Care Teams Publication Editor Relationship Specialty Start Date End Date Ragini So MD [address] [place] [address] PCP - General Family Medicine 03/31/18 documented as of this encounter
== END 2025-04-26 15:06 | disposition home or self-care (01) ==
LOC: HO.PMC 14:36
PROVIDERS: PCP Internal Medicine; Visit Provider Nurse Practitioner Family
DX: M25.561 Pain in right knee (principal); M25.562 Pain in left knee; M17.0 Bilateral primary osteoarthritis of knee
CPT/HCPCS: 99213; G2211

== ENCOUNTER → 2025-04-26 14:35 | Outpatient (BNVA) | payer OTHER, SELFPAY | PROVIDERS: PCP Internal Medicine; Visit Provider Nurse Practitioner Family | DX: M17.0 Bilateral primary osteoarthritis of knee (principal); M25.561 Pain in right knee; M25.562 Pain in left knee | CPT/HCPCS: 99212 ==